=== PATIENT | female | born 1960 | race African-American/Black ===

== ENCOUNTER 2016-12-22 12:43 | Inpatient (IN) | payer MEDICARE, MEDICAID ==
[~2016-12-22 12:43] MED LIST: SUCCINYLCHOLINE CHLORIDE INJ 200 MG/10 ML VIAL ONE
--- NOTE | 2016-12-22 14:16 | ER Document Report ---
ED Extremity Problem, Lower - General Mode of Arrival: Medic Information source: Patient, Relative Cannot obtain history due to: Mentally challenged - HPI Patient complains to provider of: Injury, Pain Location: Ankle - left Occurred: Just prior to arrival Onset/Duration: Sudden Quality of pain: Sharp <JULIA AYALA - Last Filed: 12/22/16 22:19> <GELACIO FRANCO - Last Filed: 12/23/16 01:11> - General Stated Complaint: ANKLE PAIN Notes: Patient is a 56-year-old female that presents to the emergency department today with complaints of left ankle pain. Relative at bedside states that she was attempting to help the patient pull her pants up when the patient fell. Patient complains of left ankle pain. Patient denies any other injuries during the fall, including left knee pain. Patient was seen in an emergency department in [place] yesterday and diagnosed with a viral upper respiratory infection. According to the EMS run sheet, the patient's oxygen saturation was 82% on room air on their arrival to the scene, patient was put on 3L of oxygen and her oxygen saturation brigette to 96% (JULIA AYALA) - Related Data Allergies/Adverse Reactions: No Known Allergies Allergy (Verified 08/27/12 09:50) Past Medical History - General Information source: Emergency Med Personnel, [facility] Records Cannot obtain history due to: Mentally challenged - Social History Smoking Status: Never Smoker Cigarette use (# per day): No Frequency of alcohol use: None Drug Abuse: None Family History: Reviewed & Not Pertinent - Past Medical History Cardiac Medical History: Reports: Hx Hypertension Endocrine Medical History: Reports: Hx Hypothyroidism Psychiatric Medical History: Reports: Hx Anxiety Surgical Hx: Negative <JULIA AYALA - Last Filed: 12/22/16 22:19> Review of Systems - Review of Systems Constitutional: No symptoms reported EENT: No symptoms reported Cardiovascular: No symptoms reported Respiratory: No symptoms reported Gastrointestinal: No symptoms reported Genitourinary: No symptoms reported Female Genitourinary: No symptoms reported Musculoskeletal: See HPI, Joint pain - left ankle pain Skin: No symptoms reported Hematologic/Lymphatic: No symptoms reported Neurological/Psychological: No symptoms reported -: Yes All other systems reviewed and negative <JULIA AYALA - Last Filed: 12/22/16 22:19> Physical Exam - General General appearance: Alert - HEENT Head: Normocephalic, Atraumatic Eyes: Normal Extraocular movements intact: Yes - Respiratory Respiratory status: No respiratory distress Chest status: Nontender - Cardiovascular Rhythm: Regular Heart sounds: Normal auscultation Murmur: No Pulses: Normal: Dorsalis pedis Normal capillary refill: Yes - Abdominal Inspection: Obese Distension: No distension - Extremities General upper extremity: Normal inspection, Nontender, Normal ROM General lower extremity: Other - Left ankle is swollen and exquisitely tender with palpation. Left foot is warm, good sensation distally, normal digit movement distally, 2+ dorsalis pedis pulse on the left. - Neurological Neuro grossly intact: Yes Cognition: Other - at baseline according to relative at bedside Sensory: Normal - Psychological Associated symptoms: Other - baseline according to relative at bedside - Skin Skin Temperature: Warm Skin Moisture: Dry Skin Color: Normal <JULIA AYALA - Last Filed: 12/22/16 22:19> Course - Laboratory Result Diagrams: 12/22/16 14:50 12/22/16 14:50 <JULIA AYALA - Last Filed: 12/22/16 22:19> - Laboratory Result Diagrams: 12/22/16 14:50 12/22/16 14:50 - Diagnostic Test Radiology reviewed: Image reviewed, Reports reviewed - CT a chest shows extensive parenchymal opacities throughout both lungs. No pulmonary emboli seen. - EKG Interpretation by Me EKG shows normal: Sinus rhythm, [place], Intervals, QRS Complexes. abnormal: ST-T Waves - Diffuse borderline T abnormalities Rate: Normal - 82 Rhythm: NSR When compared to previous EKG there are: Previous EKG unavailable <GELACIO FRANCO - Last Filed: 12/23/16 01:11> - Re-evaluation Re-evalutation: 12/22/16 21:13 The patient continued to desaturate whenever her oxygen would come off, she also desaturated when she was given the fentanyl prior to reducing the ankle. Her d-dimer was elevated, the chest x-ray was read as pulmonary vascular congestion but the BNP was only 159. We did try to get a CTa chest but the IV that had been obtained for this blew immediately. Dr. Kramer came down and placed a central line to facilitate getting the CT scan of the chest. The first attempt to do the CTA chest, I was told that the line would not flush so it was aborted. I found that the central line was kinked off it greater than 90 at the plastic hub. I corrected this by removing a suture looped around the catheter, and repositioned intake down the catheter. The patient eventually went back for the CT scan. The first CT scan done was inadequate due to the contrast bolus being too small. This was explained to me as the calculation instruction that was provided by some new computer program that told them how much contrast to use. Dr. Arellano discussed this with me and decided to repeat the study with an adequate dose of the contrast. The CT did not show any pulmonary emboli, but did show diffuse parenchymal opacities. 12/23/16 00:37 The patient had become quite somnolent, did not seem to be ventilating well, blood gas was obtained showing PCO2 of 144 and pH of 7.08. The O2 was 30 so this was a venous draw. The patient was prepared for airway management and intubated with a 7.5 ET tube after receiving 20 mg of etomidate and 100 mg succinylcholine. The pulse ox went up to 100% soon after intubation and hyperventilation. Chest x-ray shows the tip of the tube was just above the rima. It was withdrawn 1.5 cm. (GELACIO FARNCO) - Vital Signs Vital signs: Temp Pulse Resp BP Pulse Ox 98.7 F 83 15 125/86 H 75 L 12/22/16 13:21 12/22/16 17:16 12/22/16 22:01 12/22/16 22:01 12/22/16 22:00 (JULIA AYALA) (GELACIO FRANCO) - Laboratory Laboratory results interpreted by me: 12/22/16 12/22/16 12/22/16 14:50 14:50 14:50 WBC 13.3 H Hgb 10.9 L Hct 34.5 L MCHC 31.7 L Abs Neuts (Manual) 10.4 H D-Dimer 1.82 H Carbonic Acid ABG pH ABG pCO2 ABG pO2 ABG HCO3 ABG Total CO2 ABG O2 Saturation Sodium 148.3 H Chloride 97 L Carbon Dioxide 38 H 12/22/16 22:35 WBC Hgb Hct MCHC Abs Neuts (Manual) D-Dimer Carbonic Acid 4.32 H ABG pH 7.08 L* ABG pCO2 143.6 H* ABG pO2 30.5 L* ABG HCO3 42.0 H ABG Total CO2 46.4 H ABG O2 Saturation 35.0 L Sodium Chloride Carbon Dioxide (GELACIO FRANCO) Procedures <JULIA AYALA - Last Filed: 12/22/16 22:19> - Intubation Orotracheal Time of Intubation: 00:30 Airway evaluation: Large tongue, Obese Medications: Etomidate, Succinylcholine Intubation method: Orotracheal Blade type: Sarina Blade size: 4 ETT size: 7.5 ETT secured at: Lips Breath Sounds after Intubation: Right greater than left End tidal CO2 confirmed: Yes Ventilator settings: SIMV - 20 Tidal volume: 500 FiO2: 40 PEEP: 5 Post Intubation Xray: Yes - endotracheal tube is just above the rima. It is withdrawn 1.5 cm Intubation Complications: O2 saturation decreased - Joint Reduction/Fracture Care Left Ankle Time completed: 16:55 Consent obtained: Yes - verbal from mother Conscious sedation: No Pre-procedure NV exam: Yes Fracture: Closed Post-procedure NV exam: Yes Post-reduction x-ray: Joint reduced <GELACIO FRANCO - Last Filed: 12/23/16 01:11> - Joint Reduction/Fracture Care Left Ankle Notes: 12/22/16 17:01 The foot and ankle was pulled forward and medially relative to the distal tibia. Posterior splint was applied by the PCT while I attempted to hold the ankle in position. The patient was given 50 g of fentanyl IV prior to the reduction attempt. After the ankle was no longer manipulated, the patient became somnolent and pulse ox dropped into the 80s. She was put on a mask with 10 L oxygen and pulse ox went back up to 99%. (GELACIO FRANCO) Critical Care Note - Critical Care Note Total time excluding time spent on procedures (mins): 50 <GELACIO FRANCO - Last Filed: 12/23/16 01:11> Discharge <JULIA AYALA - Last Filed: 12/22/16 22:19> - Discharge Admitting Provider: Hospitalist Unit Admitted: ICU <GELACIO FRANCO - Last Filed: 12/23/16 01:11> - Discharge Clinical Impression: Fracture dislocation of left ankle Acute respiratory failure Qualifiers: Respiratory failure complication: hypoxia and hypercapnia Qualified Code(s): J96.01 - Acute respiratory failure with hypoxia Pneumonia Qualifiers: Pneumonia type: due to unspecified organism Laterality: bilateral Lung location : unspecified part of lung Qualified Code(s): J18.9 - Pneumonia, unspecified organism Condition: Fair Disposition: ADMITTED INPATIENT Scribe Documentation - Scribe Written by Scribe:: Daniel Posey, [id number] 12/22/16 acting as scribe for :: Jese <JULIA AYALA - Last Filed: 12/22/16 22:19>
[2016-12-22] MEDS ORDERED: FENTANYL CITRATE INJ/PF 100 MCG/2 ML AMPUL IV ONE ×2 (14:21→16:34)
[2016-12-22] MEDS ORDERED: ONDANSETRON HCL INJ/PF 4 MG/2 ML SDV IV ONE (14:21)
[2016-12-22 15:17] LABS: PROTHROMBIN TIME 13.1 SEC (11.4-15.4)
[2016-12-22 15:19] LABS: HEMATOCRIT 34.5 % (36.0-47.0); HEMOGLOBIN 10.9 g/dL (12.0-15.5); HGB HCT DIFFERENCE -1.8; MEAN CORPUSCULAR HEMOGLOBIN 28.1 pg (27.0-33.4); MEAN CORPUSCULAR HGB CONC 31.7 g/dL (32.0-36.0); MEAN CORPUSCULAR VOLUME 89 fl (80-97); RED BLOOD COUNT 3.89 10^6/uL (3.72-5.28); RED CELL DISTRIBUTION WIDTH 13.2 % (11.5-14.0); WHITE BLOOD COUNT 13.3 10^3/uL (4.0-10.5)
[2016-12-22 15:20] LABS: D-DIMER 1.82 ug/mL (0.00-0.50)
[2016-12-22 15:31] LABS: ALANINE AMINOTRANSFERASE 25 U/L (9-52); ALBUMIN 3.9 g/dL (3.5-5.0); ALKALINE PHOSPHATASE 96 U/L (38-126); ASPARTATE AMINO TRANSFERASE 21 U/L (14-36); BILIRUBIN,TOTAL 0.5 mg/dL (0.2-1.3); BLOOD UREA NITROGEN 10 mg/dL (7-20); CALCIUM 9.6 mg/dL (8.4-10.2); CHLORIDE 97 mmol/L (98-107); CREATINE KINASE 103 U/L (30-135); CREATININE RESULT 0.82 mg/dL (0.52-1.25); GLUCOSE 110 mg/dL (75-110); POTASSIUM 3.6 mmol/L (3.6-5.0); SODIUM 148.3 mmol/L (137-145)
[2016-12-22 15:43] LABS: CREATINE KINASE MB 0.27 ng/mL (<4.55); TROPONIN I < 0.012 ng/mL
[2016-12-22 15:55] LABS: ANION GAP 13 (5-19); CARBON DIOXIDE 38 mmol/L (22-30)
[2016-12-22 15:56] LABS: BASOPHILS % (MANUAL) 0 % (0-2); EOSINOPHILS % (MANUAL) 1 % (0-6); LYMPHOCYTES % (MANUAL) 14 % (13-45); TOTAL CELLS COUNTED 100
[2016-12-22 15:58] LABS: HYPOCHROMASIA SLIGHT; POIKILOCYTOSIS SLIGHT; POLYCHROMASIA SLIGHT; SMUDGE CELLS PRESENT; TOXIC VACUOLATION PRESENT
[2016-12-22 15:59] LABS: OVALOCYTES SLIGHT; PLATELET CLUMPS PRESENT; TARGET CELLS SLIGHT
--- NOTE | 2016-12-22 20:33 | Operative Report ---
Operative Report DATE OF SURGERY: 12/22/16 PREOPERATIVE DIAGNOSIS: Respiratory insufficiency, need for central venous access. POSTOPERATIVE DIAGNOSIS: Respiratory insufficiency, need for central venous access. OPERATION: Right internal jugular vein 8 Malay triple-lumen central venous line placement with ultrasound guidance. SURGEON: CHELSEA HAMPTON ANESTHESIA: Local TISSUE REMOVED OR ALTERED: None COMPLICATIONS: None noted. ESTIMATED BLOOD LOSS: minimal INTRAOPERATIVE FINDINGS: Sound used to identify normal appearing right common carotid artery and right internal jugular vein in the normal anatomical position. PROCEDURE: Timeout was performed. The patient was prepped and draped in normal sterile fashion. Ultrasound was used to identify the right internal jugular vein and right common carotid artery. The skin over the vein was infiltrated with local anesthetic. An 11 blade scalpel was used to make a skin marialuisa. Under ultrasound guidance, a Cook needle was used to cannulate the right internal jugular vein with return of nonpulsatile dark red venous blood. Seldinger technique was used. The guidewire was placed. The Cook needle was removed. The tract was dilated. Catheter was placed over the guidewire. The guidewire was removed. All lumens easily aspirated and flushed. The catheter was sewn in place at the skin and at the end hub. A Biopatch was placed. A sterile dressing was placed. All sharps were accounted for and disposed of properly. The patient tolerated the procedure well. A chest x-ray confirmed appropriate placement of the line with no pneumothorax.
[2016-12-22] MEDS ORDERED: NORMAL SALINE 1000 ML 500 ML IV ONE (22:41)
[2016-12-22] MEDS ORDERED: CEFTRIAXONE 1 GM/D5W RTU 50 ML IV ONE (23:23)
[2016-12-22] MEDS ORDERED: LEVOFLOXACIN 750 MG/D5W RTU 150 ML IV ONE (23:23)
[2016-12-23 00:06] LABS: ARTERIAL BLOOD BASE EXCESS 7.8 mmol/L
[2016-12-23] MEDS ORDERED: SUCCINYLCHOLINE CHLORIDE INJ 200 MG/10 ML VIAL IV ONE (00:20)
[2016-12-23] MEDS ORDERED: ETOMIDATE INJ/PF 20 MG/10 ML SDV IV ONE ×2 (00:20→00:21)
[2016-12-23] MEDS ORDERED: PROPOFOL 100 ML IV PRN (00:41)
[2016-12-23] MEDS ORDERED: PROPOFOL 100 ML IV ONE (00:42)
[2016-12-23] MEDS ORDERED: ACETAMINOPHEN 325 MG TABLET NG PRN (00:51)
[2016-12-23] MEDS ORDERED: FENTANYL CITRATE INJ/PF 100 MCG/2 ML AMPUL IV PRN (00:56)
[2016-12-23] MEDS ORDERED: NORMAL SALINE 1000 ML 1,000 ML IV SCH (01:00)
[2016-12-23 01:38] LABS: APPEARANCE,URINE CLEAR; BILIRUBIN,URINE NEGATIVE (NEGATIVE); GLUCOSE, URINE NEGATIVE (NEGATIVE); KETONES,URINE NEGATIVE (NEGATIVE); LEUKOCYTE ESTERASE,URINE NEGATIVE (NEGATIVE); NITRITE,URINE NEGATIVE (NEGATIVE); PROTEIN,URINE NEGATIVE (NEGATIVE); URINE SPECIFIC GRAVITY > 1.060; UROBILINOGEN,URINE NEGATIVE mg/dL (<2.0)
[2016-12-23] MEDS: IPRATROPIUM/ALBUTEROL 0.5-2.5 MG/3 ML AMPUL NEB SCH ×4 (02:37→19:53)
[2016-12-23] MEDS: PROPOFOL 100 ML IV PRN ×7 (03:08→23:20)
[2016-12-23] MEDS ORDERED: NORMAL SALINE 1000 ML 1,000 ML IV ONE (03:12)
[2016-12-23] MEDS ORDERED: INFLUENZA ADLT QUAD (36MOS+) 2016-17 VAC 0.5 ML SYR IM PRN (04:10)
--- NOTE | 2016-12-23 05:06 | PDOC H&P ---
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 Past Medical History Cardiac Medical History: Reports: Hypertension Endocrine Medical History: Reports: Hypothyroidism Psychiatric Medical History: Denies: Depression Social History Information Source: Emergency Med Personnel Lives with: Family Smoking Status: Never Smoker Frequency of Alcohol Use: None Hx Recreational Drug Use: No Drugs: None Hx Prescription Drug Abuse: No - Advance Directive Resuscitation Status: Full Code Family History Family History: Reviewed & Not Pertinent Parental Family History Reviewed: Yes Children Family History Reviewed: Yes Sibling(s) Family History Reviewed.: Yes Medication/Allergy Home Medications: Amlodipine Besylate 5 mg PO DAILY 12/23/16 Atorvastatin Calcium 10 mg PO QHS 12/23/16 Clotrimazole/Betamethasone Dip [Clotrimazole-Betamethasone [facility]] 12/23/16 Docusate Sodium 100 mg PO ASDIR PRN 12/23/16 Hydroxyzine HCl 25 mg PO QHS PRN 12/23/16 Levothyroxine Sodium 25 mcg PO DAILY 12/23/16 Lisinopril 5 mg PO DAILY 12/23/16 Mirtazapine 15 mg PO QHS 12/23/16 Potassium Chloride 10 meq PO BID 12/23/16 Allergies/Adverse Reactions: No Known Allergies Allergy (Verified 08/27/12 09:50) Review of Systems ROS unobtainable: Due to mental status Physical Exam Vital Signs: Temp Pulse Resp BP Pulse Ox 99.6 F 104 H 12 101/69 94 12/23/16 03:58 12/23/16 03:58 12/23/16 03:58 12/23/16 03:58 12/23/16 04:00 Intake & Output 12/21/16 12/22/16 12/23/16 11:59 11:59 11:59 Weight 101 kg General appearance: PRESENT: no acute distress, obese Head exam: PRESENT: atraumatic, normocephalic Eye exam: PRESENT: conjunctiva pink, EOMI, PERRLA. ABSENT: scleral icterus Ear exam: PRESENT: normal external ear exam Mouth exam: PRESENT: moist, tongue midline Respiratory exam: PRESENT: crackles, rhonchi, symmetrical, tachypnea. ABSENT: chest wall tenderness, stridor Cardiovascular exam: PRESENT: RRR. ABSENT: diastolic murmur, rubs, systolic murmur Pulses: PRESENT: normal dorsalis pedis pul Vascular exam: PRESENT: normal capillary refill GI/Abdominal exam: PRESENT: normal bowel sounds, soft. ABSENT: distended, guarding, mass, organolmegaly, rebound, tenderness Extremities exam: PRESENT: full ROM. ABSENT: calf tenderness, clubbing, pedal edema Neurological exam: PRESENT: other - Intubated sedated and comfortable Skin exam: PRESENT: dry, intact, warm. ABSENT: cyanosis, rash Results Laboratory Results: 12/23/16 01:05 Urine Color STRAW Urine Appearance CLEAR Urine pH 6.0 Ur Specific [place] > 1.060 Urine Protein NEGATIVE Urine Glucose (UA) NEGATIVE Urine Ketones NEGATIVE Urine Blood SMALL H Urine Nitrite NEGATIVE Ur Leukocyte Esterase NEGATIVE Urine WBC (Auto) 0 Urine RBC (Auto) 1 Impressions: Ankle X-Ray 12/22/16 13:45 IMPRESSION: Left ankle fracture dislocation with disruption of the ankle mortise and distal tibiofibular joint Chest/Abdomen CTA 12/22/16 16:25 IMPRESSION: Diffuse parenchymal opacities throughout both lungs. Poor bolus. Cannot evaluate for pulmonary emboli. Assessment & Plan - Diagnosis (1) Acute respiratory failure Qualifiers: Respiratory failure complication: hypoxia and hypercapnia Qualified Code(s): J96.01 - Acute respiratory failure with hypoxia Is this a current diagnosis for this admission?: YesPlan: Secondary to bilateral multilobar pneumonia cultures obtained empiric antibiotics initiated, intubated sedated and comfortable evaluate ABG and follow -up chest x-ray (2) Fracture dislocation of left ankle Is this a current diagnosis for this admission?: YesPlan: Symptomatic management and orthopedic consult (3) Pneumonia Qualifiers: Pneumonia type: due to unspecified organism Laterality: bilateral Lung location: unspecified part of lung Qualified Code(s): J18.9 - Pneumonia , unspecified organism Is this a current diagnosis for this admission?: YesPlan: Please see #1
[2016-12-23 05:25] LABS: ABSOLUTE LYMPHOCYTES (AUTO) 1.6 10^3/uL (0.5-4.7); ABSOLUTE MONOCYTES (AUTO) 0.6 10^3/uL (0.1-1.4); ABSOLUTE NEUT (AUTO) 6.5 10^3/uL (1.7-8.2); BASOPHILS % (AUTO) 0.1 % (0-2); EOSINOPHILS % (AUTO) 0.1 % (0-6); HEMATOCRIT 28.8 % (36.0-47.0); HEMOGLOBIN 9.3 g/dL (12.0-15.5); HGB HCT DIFFERENCE -0.9; LYMPHOCYTES % (AUTO) 17.9 % (13-45); MEAN CORPUSCULAR HEMOGLOBIN 28.5 pg (27.0-33.4); MEAN CORPUSCULAR HGB CONC 32.3 g/dL (32.0-36.0); MEAN CORPUSCULAR VOLUME 88 fl (80-97); MONOCYTES % (AUTO) 7.2 % (3-13); RED BLOOD COUNT 3.27 10^6/uL (3.72-5.28); RED CELL DISTRIBUTION WIDTH 13.5 % (11.5-14.0); SEGMENTED NEUTROPHILS % (AUTO) 74.7 % (42-78); WHITE BLOOD COUNT 8.6 10^3/uL (4.0-10.5)
[2016-12-23 05:29] LABS: ARTERIAL BLOOD BASE EXCESS 11.4 mmol/L; ARTERIAL BLOOD O2 SATURATION 88.2 % (94-98)
[2016-12-23] MEDS: HEPARIN SOD (PORCINE) 5,000 UNIT/ML 1 ML SYRINGE SUBCUT SCH ×3 (05:33→22:01)
[2016-12-23] MEDS ORDERED: PANTOPRAZOLE SODIUM 80 MG in NORMAL SALINE 100 ML IV ONE (05:45)
[2016-12-23] MEDS ORDERED: PANTOPRAZOLE SODIUM 40 MG VIAL IV PRN (05:48)
[2016-12-23 05:53] LABS: ANION GAP 9 (5-19); BLOOD UREA NITROGEN 11 mg/dL (7-20); CALCIUM 8.9 mg/dL (8.4-10.2); CARBON DIOXIDE 36 mmol/L (22-30); CHLORIDE 100 mmol/L (98-107); CREATININE RESULT 0.73 mg/dL (0.52-1.25); GLUCOSE 84 mg/dL (75-110); POTASSIUM 3.3 mmol/L (3.6-5.0); SODIUM 145.1 mmol/L (137-145); TRIGLYCERIDES 151 mg/dL (<150)
[2016-12-23] MEDS ORDERED: POTASSI CL 20 MEQ/50 ML RIDER 20 MEQ/50 ML RTUPB IV ONE ×2 (06:30→07:42)
[2016-12-23] MEDS ORDERED: MAGNESIUM SULFATE/D5W 1 GM/100 ML RTUPB IV ONE ×2 (06:31→07:42)
[2016-12-23] MEDS: POTASSI CL 20 MEQ/50 ML RIDER 50 ML IV SCH ×2 (08:13→10:20)
[2016-12-23] MEDS: MAGNESIUM SULFATE/D5W 100 ML IV SCH ×2 (08:13→09:37)
--- NOTE | 2016-12-23 09:24 | EKG REPORT ---
SEVERITY:- BORDERLINE ECG - SINUS RHYTHM BORDERLINE T ABNORMALITIES, DIFFUSE LEADS : Confirmed by: Kareem Chapa 23-Dec-2016 09:24:03
[2016-12-23 09:47] LABS: ARTERIAL BLOOD O2 SATURATION 90.9 % (94-98)
[2016-12-23] MEDS: LEVOFLOXACIN 750 MG/D5W RTU 150 ML IV SCH (10:36)
[2016-12-23] MEDS: LEVOTHYROXINE SODIUM 0.025 MG TABLET PO SCH (10:37)
[2016-12-23] MEDS: LORAZEPAM INJ 2 MG/1 ML VIAL IV PRN (10:38)
[2016-12-23] MEDS: NORMAL SALINE 1000 ML 1,000 ML IV PRN ×2 (10:40→19:00)
--- NOTE | 2016-12-23 10:48 | PDOC CONSULTATION ---
Consultation Consult Date: 12/23/16 Attending physician:: JONAS MICHAUD Consult reason:: resp fail History of Present Illness Admission Date/PCP: 12/23/16 00:51 History of Present Illness: Patient is currently intubated and sedated all information is from charts. 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 Past Medical History Cardiac Medical History: Reports: Hypertension Endocrine Medical History: Reports: Hypothyroidism Psychiatric Medical History: Denies: Depression Social History Information Source: [facility] Records Lives with: Family Smoking Status: Never Smoker Frequency of Alcohol Use: None Hx Recreational Drug Use: No Drugs: None Hx Prescription Drug Abuse: No - Advance Directive Resuscitation Status: Full Code Family History Family History: Reviewed & Not Pertinent Parental Family History Reviewed: No Children Family History Reviewed: No Sibling(s) Family History Reviewed.: No Medication/Allergy Home Medications: Amlodipine Besylate [Norvasc 5 mg Tablet] 5 mg PO DAILY 12/23/16 Atorvastatin Calcium [Lipitor 10 mg Tablet] 10 mg PO QHS 12/23/16 Clotrimazole/Betamethasone Dip [Clotrimazole-Betamethasone [facility]] 1 applic TOP BID 12/23/16 Docusate Sodium [Colace 100 mg Capsule] 100 mg PO DAILYP PRN 12/23/16 Hydroxyzine HCl [Atarax 25 mg Tablet] 25 mg PO HSP PRN 12/23/16 Levothyroxine Sodium [Synthroid 0.025 mg Tablet] 0.025 mg PO DAILY 12/23/16 Lisinopril [Prinivil 5 mg Tablet] 5 mg PO DAILY 12/23/16 Mirtazapine [Remeron 15 mg Tablet] 15 mg PO QHS 12/23/16 Potassium Chloride [Klor-Con 10 Meq Tablet.sa] 10 meq PO BID 12/23/16 Allergies/Adverse Reactions: No Known Allergies Allergy (Verified 08/27/12 09:50) Review of Systems ROS unobtainable: Due to endotracheal tube, Due to mental status Physical Exam Vital Signs: Temp Pulse Resp BP Pulse Ox 98.8 F 87 12 111/71 96 12/23/16 07:55 12/23/16 08:01 12/23/16 08:01 12/23/16 07:55 12/23/16 08:01 Intake & Output 12/22/16 12/23/16 12/24/16 06:59 06:59 06:59 Intake Total 1511 Output Total 300 40 Balance 1211 -40 Weight 101.1 kg General appearance: PRESENT: no acute distress, disheveled, morbidly obese, well -developed, well-nourished Head exam: PRESENT: atraumatic, normocephalic Eye exam: PRESENT: conjunctiva pale Mouth exam: PRESENT: neck supple, tongue midline - Greatly enlarged, other - Endotracheal tube in place Neck exam: ABSENT: carotid bruit, JVD, lymphadenopathy, thyromegaly Respiratory exam: PRESENT: decreased breath sounds, prolonged expiratory phas, rhonchi, symmetrical, unlabored Cardiovascular exam: PRESENT: RRR, +S1, +S2 Pulses: PRESENT: normal radial pulses GI/Abdominal exam: PRESENT: normal bowel sounds, soft. ABSENT: distended, guarding, mass, organolmegaly, rebound, tenderness Rectal exam: PRESENT: deferred Gentrourinary exam: PRESENT: indwelling catheter Extremities exam: PRESENT: pedal edema - Trace, other - Right ankle abnormality Skin exam: PRESENT: dry, intact, warm Results Laboratory Results: 12/23/16 04:59 12/23/16 04:59 12/23/16 12/23/16 12/23/16 01:05 04:59 04:59 WBC 8.6 RBC 3.27 L Hgb 9.3 L Hct 28.8 L MCV 88 MCH 28.5 MCHC 32.3 RDW 13.5 Plt Count 287 Seg Neutrophils % 74.7 Lymphocytes % 17.9 Monocytes % 7.2 Eosinophils % 0.1 Basophils % 0.1 Absolute Neutrophils 6.5 Absolute Lymphocytes 1.6 Absolute Monocytes 0.6 Absolute Eosinophils 0.0 Absolute Basophils 0.0 Carbonic Acid 1.78 H HCO3/H2CO3 Ratio 21:1 ABG pH 7.43 ABG pCO2 59.1 H ABG pO2 54.5 L ABG HCO3 37.9 H ABG O2 Saturation 88.2 L ABG Base Excess 11.4 FiO2 28% Sodium Potassium Chloride Carbon Dioxide Anion Gap BUN Creatinine Est GFR ( Amer) Est GFR (Non-Af Amer) Glucose Calcium Magnesium Triglycerides Urine Color STRAW Urine Appearance CLEAR Urine pH 6.0 Ur Specific [place] > 1.060 Urine Protein NEGATIVE Urine Glucose (UA) NEGATIVE Urine Ketones NEGATIVE Urine Blood SMALL H Urine Nitrite NEGATIVE Ur Leukocyte Esterase NEGATIVE Urine WBC (Auto) 0 Urine RBC (Auto) 1 12/23/16 12/23/16 04:59 04:59 WBC RBC Hgb Hct MCV MCH MCHC RDW Plt Count Seg Neutrophils % Lymphocytes % Monocytes % Eosinophils % Basophils % Absolute Neutrophils Absolute Lymphocytes Absolute Monocytes Absolute Eosinophils Absolute Basophils Carbonic Acid HCO3/H2CO3 Ratio ABG pH ABG pCO2 ABG pO2 ABG HCO3 ABG O2 Saturation ABG Base Excess FiO2 Sodium 145.1 H Potassium 3.3 L Chloride 100 Carbon Dioxide 36 H Anion Gap 9 BUN 11 Creatinine 0.73 Est GFR ( Amer) > 60 Est GFR (Non-Af Amer) > 60 Glucose 84 Calcium 8.9 Magnesium 1.6 Triglycerides 151 H Urine Color Urine Appearance Urine pH Ur Specific [place] Urine Protein Urine Glucose (UA) Urine Ketones Urine Blood Urine Nitrite Ur Leukocyte Esterase Urine WBC (Auto) Urine RBC (Auto) Impressions: Ankle X-Ray 12/22/16 13:45 IMPRESSION: Left ankle fracture dislocation with disruption of the ankle mortise and distal tibiofibular joint Chest/Abdomen CTA 12/22/16 16:25 IMPRESSION: Diffuse parenchymal opacities throughout both lungs. Poor bolus. Cannot evaluate for pulmonary emboli. Chest X-Ray 12/23/16 00:00 IMPRESSION: Unchanged bilateral airspace disease Endotracheal tube tip 1 to 2 cm above the rima. Assessment & Plan - Diagnosis (1) Acute respiratory failure Qualifiers: Respiratory failure complication: hypoxia and hypercapnia Qualified Code(s): J96.01 - Acute respiratory failure with hypoxia Is this a current diagnosis for this admission?: YesPlan: Suspect patient has obesity hypoventilation syndrome and obstructive sleep apnea is her pH corrected with a persistent PCO2 elevation patient is stable at this time will continue oxygenation and ventilation support (2) Fracture dislocation of left ankle Is this a current diagnosis for this admission?: YesPlan: As per orthopedics will not attempt extubation until the plan is delineated (3) Pneumonia Qualifiers: Pneumonia type: due to unspecified organism Laterality: bilateral Lung location: unspecified part of lung Qualified Code(s): J18.9 - Pneumonia, unspecified organism Is this a current diagnosis for this admission?: YesPlan: Community-acquired using appropriate antibiotics - Time Critical Time spent with patient: 35 or more minutes - 50 minutes
[2016-12-23 11:52] LABS: ANION GAP 5 (5-19); BLOOD UREA NITROGEN 9 mg/dL (7-20); CALCIUM 8.6 mg/dL (8.4-10.2); CARBON DIOXIDE 36 mmol/L (22-30); CHLORIDE 104 mmol/L (98-107); CREATININE RESULT 0.67 mg/dL (0.52-1.25); GLUCOSE 85 mg/dL (75-110); POTASSIUM 3.3 mmol/L (3.6-5.0); SODIUM 145.1 mmol/L (137-145)
[2016-12-23] MEDS: NYSTATIN TOPICAL POWDER 15 GM TP SCH ×2 (14:53→17:38)
[2016-12-23] MEDS: MIRTAZAPINE 15 MG TABLET PO SCH (22:01)
[2016-12-24] MEDS: PROPOFOL 100 ML IV PRN ×8 (01:06→22:58)
[2016-12-24] MEDS: IPRATROPIUM/ALBUTEROL 0.5-2.5 MG/3 ML AMPUL NEB SCH ×4 (01:47→20:46)
[2016-12-24] MEDS: NORMAL SALINE 1000 ML 1,000 ML IV PRN ×3 (02:48→21:49)
[2016-12-24 05:07] LABS: ARTERIAL BLOOD BASE EXCESS 5.2 mmol/L; ARTERIAL BLOOD O2 SATURATION 93.5 % (94-98)
[2016-12-24 05:10] LABS: ABSOLUTE EOSINOPHILS # (AUTO) 0.2 10^3/uL (0.0-0.6); ABSOLUTE LYMPHOCYTES (AUTO) 1.5 10^3/uL (0.5-4.7); ABSOLUTE MONOCYTES (AUTO) 0.4 10^3/uL (0.1-1.4); ABSOLUTE NEUT (AUTO) 3.2 10^3/uL (1.7-8.2); BASOPHILS % (AUTO) 0.4 % (0-2); EOSINOPHILS % (AUTO) 4.5 % (0-6); HEMATOCRIT 25.6 % (36.0-47.0); HEMOGLOBIN 8.3 g/dL (12.0-15.5); HGB HCT DIFFERENCE -0.7; LYMPHOCYTES % (AUTO) 27.8 % (13-45); MEAN CORPUSCULAR HEMOGLOBIN 28.4 pg (27.0-33.4); MEAN CORPUSCULAR HGB CONC 32.5 g/dL (32.0-36.0); MEAN CORPUSCULAR VOLUME 87 fl (80-97); MONOCYTES % (AUTO) 6.6 % (3-13); RED BLOOD COUNT 2.93 10^6/uL (3.72-5.28); RED CELL DISTRIBUTION WIDTH 13.5 % (11.5-14.0); SEGMENTED NEUTROPHILS % (AUTO) 60.7 % (42-78); WHITE BLOOD COUNT 5.3 10^3/uL (4.0-10.5)
[2016-12-24 05:25] LABS: ANION GAP 7 (5-19); BLOOD UREA NITROGEN 7 mg/dL (7-20); CALCIUM 8.4 mg/dL (8.4-10.2); CARBON DIOXIDE 32 mmol/L (22-30); CHLORIDE 105 mmol/L (98-107); CREATININE RESULT 0.62 mg/dL (0.52-1.25); GLUCOSE 101 mg/dL (75-110); MAGNESIUM 1.9 mg/dL (1.6-2.3); SODIUM 143.8 mmol/L (137-145)
[2016-12-24] MEDS: HEPARIN SOD (PORCINE) 5,000 UNIT/ML 1 ML SYRINGE SUBCUT SCH ×3 (05:44→22:10)
[2016-12-24] MEDS: NORMAL SALINE 100 ML with PANTOPRAZOLE SODIUM 80 MG IV PRN ×4 (07:34→16:32)
[2016-12-24] MEDS: POTASSI CL 20 MEQ/50 ML RIDER 50 ML IV SCH ×2 (07:35→11:45)
[2016-12-24] MEDS ORDERED: ACETYLCYSTEINE 20% SOLN 800 MG/4 ML VIAL.NEB NEB PRN (08:12)
[2016-12-24] MEDS ORDERED: POTASSIUM CHLORIDE 20 MEQ/15 ML UDCUP NG ONE (08:30)
[2016-12-24] MEDS: POTASSI CL 20 MEQ/50 ML RIDER 20 MEQ/50 ML RTUPB IV SCH ×3 (09:09→14:58)
[2016-12-24] MEDS: LEVOFLOXACIN 750 MG/D5W RTU 150 ML IV SCH (10:18)
[2016-12-24] MEDS: AMLODIPINE BESYLATE 5 MG TABLET NG SCH ×2 (10:20→22:10)
[2016-12-24] MEDS: MAGNESIUM OXIDE 400 MG TABLET NG SCH ×3 (10:20→18:35)
[2016-12-24] MEDS: GUAIFENESIN SYRP 200 MG/10 ML UDC NG SCH ×4 (10:20→22:09)
[2016-12-24] MEDS: LEVOTHYROXINE SODIUM 0.025 MG TABLET PO SCH (10:23)
[2016-12-24] MEDS: NYSTATIN TOPICAL POWDER 15 GM TP SCH ×2 (10:24→18:32)
--- NOTE | 2016-12-24 17:24 | XCELERA REPORT ---
[address] [address] Transthoracic Echocardiogram Report Name: ZOFIA COLES Age: 56 yrs Gender: Female : 1960 Patient Status: Inpatient Patient Location: \S\[facility]\S\A Study Date: 12/24/2016 09:21 AM Height: 64 in Weight: 236 lb BSA: 2.1 m2 Procedure: A complete two-dimensional transthoracic echocardiogram was performed (2D, M-mode, spectral and color flow Doppler). The study was technically difficult with many images being suboptimal in quality. Reason For Study: chf Ordering Physician: GÉNESIS PRESLEY Performed By: Phoebe Saul Interpretation Summary The left ventricular ejection fraction is normal. Doppler measurements suggest pseudonormalized left ventricular relaxation, which is associated with grade II/IV or mild to moderate diastolic dysfunction There is borderline concentric left ventricular hypertrophy. The left ventricle is grossly normal size. Not all wall segments were well visualized. Wall motion cannot be accurately commented on, but no definite regional wall motion abnormalities noted. Borderline right ventricular enlargement. The right atrium is mildly dilated. The left atrium is borderline dilated. There is no mitral valve stenosis. There is a trace amount of mitral regurgitation There is no aortic valve stenosis No aortic regurgitation is present. There is a trace to mild amount of tricuspid regurgitation Tricuspid regurgitation jet envelope not well defined to measure RV systolic pressure accurately. The aortic root is not well visualized but is probably normal size. The inferior vena cava was not well visualized There is no pericardial effusion. MMode/2D Measurements \T\ Calculations RVDd: 1.4 cm LVIDd: 4.2 cm FS: 43.1 % Ao root diam: 2.4 cm IVSd: 1.0 cm LVIDs: 2.4 cm EDV(Teich): 77.4 ml LVPWd: 1.0 cm ESV(Teich): 19.6 ml Ao root area: 4.6 cm2 EF(Teich): 74.7 % LA dimension: 3.5 cm Doppler Measurements \T\ Calculations MV E max mallory: MV P1/2t max mallory: Ao V2 max: LV V1 max P.7 cm/sec 116.3 cm/sec 146.6 cm/sec 6.0 mmHg MV A max mallory: MV P1/2t: 46.3 msec Ao max PG: LV V1 max: 136.0 cm/sec 8.6 mmHg 122.8 cm/sec MV E/A: 0.85 MVA(P1/2t): 4.8 cm2 MV dec slope: 735.6 cm/sec2 MV dec time: 0.16 sec PA V2 max: TR max mallory: 91.8 cm/sec 268.8 cm/sec PA max PG: TR max P.9 mmHg 3.4 mmHg Left Ventricle The left ventricle is grossly normal size. There is borderline concentric left ventricular hypertrophy. The left ventricular ejection fraction is normal. Doppler measurements suggest pseudonormalized left ventricular relaxation, which is associated with grade II/IV or mild to moderate diastolic dysfunction. Not all wall segments were well visualized. Wall motion cannot be accurately commented on, but no definite regional wall motion abnormalities noted. Right Ventricle Borderline right ventricular enlargement. There is normal right ventricular wall thickness. The right ventricular systolic function is normal. Atria The right atrium is mildly dilated. The left atrium is borderline dilated. Interarterial septum not well visualized and not well dopplered. Cannot comment on ASD/PFO presence. Mitral Valve The mitral valve is grossly normal. There is no mitral valve stenosis. There is a trace amount of mitral regurgitation. Aortic Valve The aortic valve is grossly normal. There is no aortic valve stenosis. No aortic regurgitation is present. Tricuspid Valve The tricuspid valve is not well visualized, but is grossly normal. There is no tricuspid stenosis. There is a trace to mild amount of tricuspid regurgitation. Tricuspid regurgitation jet envelope not well defined to measure RV systolic pressure accurately. Pulmonic Valve The pulmonic valve is not well visualized. Great Vessels The aortic root is not well visualized but is probably normal size. The inferior vena cava was not well visualized. Effusions There is no pericardial effusion. : GÉNESIS PRESLEY > Kareem Chapa
[2016-12-24 18:21] LABS: ABSOLUTE EOSINOPHILS # (AUTO) 0.3 10^3/uL (0.0-0.6); ABSOLUTE LYMPHOCYTES (AUTO) 1.4 10^3/uL (0.5-4.7); ABSOLUTE MONOCYTES (AUTO) 0.3 10^3/uL (0.1-1.4); ABSOLUTE NEUT (AUTO) 3.4 10^3/uL (1.7-8.2); BASOPHILS % (AUTO) 0.7 % (0-2); EOSINOPHILS % (AUTO) 6.2 % (0-6); HEMATOCRIT 26.3 % (36.0-47.0); HEMOGLOBIN 8.5 g/dL (12.0-15.5); HGB HCT DIFFERENCE -0.8; MEAN CORPUSCULAR HEMOGLOBIN 28.2 pg (27.0-33.4); MEAN CORPUSCULAR HGB CONC 32.3 g/dL (32.0-36.0); MEAN CORPUSCULAR VOLUME 87 fl (80-97); RED BLOOD COUNT 3.02 10^6/uL (3.72-5.28); RED CELL DISTRIBUTION WIDTH 13.7 % (11.5-14.0); SEGMENTED NEUTROPHILS % (AUTO) 62.1 % (42-78); WHITE BLOOD COUNT 5.5 10^3/uL (4.0-10.5)
--- NOTE | 2016-12-24 19:35 | PDOC PROGRESS REPORT ---
Subjective Progress Note for:: 12/24/16 Subjective:: Patient is currently on weaning trial when I visited her. Her mother is at bedside. Patient is awake and following commands. Physical Exam Vital Signs: Temp Pulse Resp BP Pulse Ox 99.6 F 104 H 12 111/71 95 12/23/16 03:58 12/23/16 03:58 12/23/16 07:01 12/23/16 07:01 12/23/16 07:01 Intake & Output 12/22/16 12/23/16 12/24/16 06:59 06:59 06:59 Intake Total 1511 Output Total 300 Balance 1211 Weight 101.1 kg Exam: General: Awake, tracks, intubated HEENT: AT/NC, PERRL, EOMI, oropharynx is moist, pink, no scleral icterus, no conjunctival injection, ET and NG in place Neck: No JVD, trachea midline Chest: Bilateral bibasilar Rales CV: Regular rate and rhythm, normal S1 and S2, no murmur, rub, or gallop Abdomen: Soft, nontender to palpation, nondistended, active bowel sounds; no rebound, rigidity, or guarding Extremities: No cyanosis, clubbing or edema Neuro: Follows simple commands Results Laboratory Results: 12/23/16 04:59 12/23/16 04:59 12/23/16 12/23/16 12/23/16 01:05 04:59 04:59 WBC 8.6 RBC 3.27 L Hgb 9.3 L Hct 28.8 L MCV 88 MCH 28.5 MCHC 32.3 RDW 13.5 Plt Count 287 Seg Neutrophils % 74.7 Lymphocytes % 17.9 Monocytes % 7.2 Eosinophils % 0.1 Basophils % 0.1 Absolute Neutrophils 6.5 Absolute Lymphocytes 1.6 Absolute Monocytes 0.6 Absolute Eosinophils 0.0 Absolute Basophils 0.0 Carbonic Acid 1.78 H HCO3/H2CO3 Ratio 21:1 ABG pH 7.43 ABG pCO2 59.1 H ABG pO2 54.5 L ABG HCO3 37.9 H ABG O2 Saturation 88.2 L ABG Base Excess 11.4 FiO2 28% Sodium Potassium Chloride Carbon Dioxide Anion Gap BUN Creatinine Est GFR ( Amer) Est GFR (Non-Af Amer) Glucose Calcium Magnesium Triglycerides Urine Color STRAW Urine Appearance CLEAR Urine pH 6.0 Ur Specific [place] > 1.060 Urine Protein NEGATIVE Urine Glucose (UA) NEGATIVE Urine Ketones NEGATIVE Urine Blood SMALL H Urine Nitrite NEGATIVE Ur Leukocyte Esterase NEGATIVE Urine WBC (Auto) 0 Urine RBC (Auto) 1 12/23/16 12/23/16 04:59 04:59 WBC RBC Hgb Hct MCV MCH MCHC RDW Plt Count Seg Neutrophils % Lymphocytes % Monocytes % Eosinophils % Basophils % Absolute Neutrophils Absolute Lymphocytes Absolute Monocytes Absolute Eosinophils Absolute Basophils Carbonic Acid HCO3/H2CO3 Ratio ABG pH ABG pCO2 ABG pO2 ABG HCO3 ABG O2 Saturation ABG Base Excess FiO2 Sodium 145.1 H Potassium 3.3 L Chloride 100 Carbon Dioxide 36 H Anion Gap 9 BUN 11 Creatinine 0.73 Est GFR ( Amer) > 60 Est GFR (Non-Af Amer) > 60 Glucose 84 Calcium 8.9 Magnesium 1.6 Triglycerides 151 H Urine Color Urine Appearance Urine pH Ur Specific [place] Urine Protein Urine Glucose (UA) Urine Ketones Urine Blood Urine Nitrite Ur Leukocyte Esterase Urine WBC (Auto) Urine RBC (Auto) Impressions: Ankle X-Ray 12/22/16 13:45 IMPRESSION: Left ankle fracture dislocation with disruption of the ankle mortise and distal tibiofibular joint Chest/Abdomen CTA 12/22/16 16:25 IMPRESSION: Diffuse parenchymal opacities throughout both lungs. Poor bolus. Cannot evaluate for pulmonary emboli. Chest X-Ray 12/23/16 00:00 IMPRESSION: Endotracheal tube with its tip 1.2 cm above the level of the rima. Bilateral opacities appear unchanged. Other findings as noted above Assessment & Plan - Diagnosis (1) Acute respiratory failure Qualifiers: Respiratory failure complication: hypoxia and hypercapnia Qualified Code(s): J96.01 - Acute respiratory failure with hypoxia Is this a current diagnosis for this admission?: YesPlan: Patient currently intubated. Have consulted Dr. stout (medicine for ventilator management (2) Pneumonia Qualifiers: Pneumonia type: due to unspecified organism Laterality: bilateral Lung location: unspecified part of lung Qualified Code(s): J18.9 - Pneumonia, unspecified organism Is this a current diagnosis for this admission?: YesPlan: Patient currently with bilateral bibasilar pneumonia. Community-acquired with no special features. Patient currently on scheduled nebulized treatments. Patient currently on Levaquin. (3) Hypokalemia Is this a current diagnosis for this admission?: YesPlan: Check magnesium and replete (4) Compensated respiratory acidosis Is this a current diagnosis for this admission?: Yes (5) Acute blood loss anemia Is this a current diagnosis for this admission?: YesPlan: Patient currently anemic likely secondary to blood loss. Have sent anemia labs and patient is found to be iron deficient as well. Will initiate patient on iron replacement. Have discussed this with her mother. (6) Fracture dislocation of left ankle Is this a current diagnosis for this admission?: YesPlan: Have consulted orthopedics. Patient will need surgery within the next 7 days. (7) Morbid obesity with BMI of 40.0-44.9, adult Is this a current diagnosis for this admission?: Yes - Time Critical Time spent with patient: 35 or more minutes Medications reviewed and adjusted accordingly: Yes
[2016-12-24] MEDS: ACETYLCYSTEINE 20% SOLN 800 MG/4 ML VIAL.NEB NEB SCH (20:46)
[2016-12-24] MEDS: MIRTAZAPINE 15 MG TABLET PO SCH (22:12)
[2016-12-25] MEDS: PROPOFOL 100 ML IV PRN ×5 (01:36→20:46)
[2016-12-25] MEDS: GUAIFENESIN SYRP 200 MG/10 ML UDC NG SCH ×6 (01:42→21:14)
[2016-12-25] MEDS: NORMAL SALINE 100 ML with PANTOPRAZOLE SODIUM 80 MG IV PRN ×4 (01:42→20:39)
[2016-12-25] MEDS: IPRATROPIUM/ALBUTEROL 0.5-2.5 MG/3 ML AMPUL NEB SCH ×4 (03:01→20:07)
[2016-12-25 04:37] LABS: ABSOLUTE EOSINOPHILS # (AUTO) 0.4 10^3/uL (0.0-0.6); ABSOLUTE LYMPHOCYTES (AUTO) 1.6 10^3/uL (0.5-4.7); ABSOLUTE MONOCYTES (AUTO) 0.3 10^3/uL (0.1-1.4); ABSOLUTE NEUT (AUTO) 2.5 10^3/uL (1.7-8.2); BASOPHILS % (AUTO) 0.7 % (0-2); EOSINOPHILS % (AUTO) 7.8 % (0-6); HEMATOCRIT 25.7 % (36.0-47.0); HEMOGLOBIN 8.4 g/dL (12.0-15.5); HGB HCT DIFFERENCE -0.5; LYMPHOCYTES % (AUTO) 32.8 % (13-45); MEAN CORPUSCULAR HEMOGLOBIN 28.3 pg (27.0-33.4); MEAN CORPUSCULAR HGB CONC 32.5 g/dL (32.0-36.0); MEAN CORPUSCULAR VOLUME 87 fl (80-97); MONOCYTES % (AUTO) 6.4 % (3-13); RED BLOOD COUNT 2.95 10^6/uL (3.72-5.28); SEGMENTED NEUTROPHILS % (AUTO) 52.3 % (42-78); WHITE BLOOD COUNT 4.8 10^3/uL (4.0-10.5)
[2016-12-25 04:39] LABS: ANION GAP 7 (5-19); BLOOD UREA NITROGEN 6 mg/dL (7-20); CALCIUM 8.6 mg/dL (8.4-10.2); CARBON DIOXIDE 29 mmol/L (22-30); CHLORIDE 109 mmol/L (98-107); CREATININE RESULT 0.64 mg/dL (0.52-1.25); GLUCOSE 88 mg/dL (75-110); MAGNESIUM 1.8 mg/dL (1.6-2.3); PHOSPHORUS 3.7 mg/dL (2.5-4.5); POTASSIUM 3.5 mmol/L (3.6-5.0); SODIUM 144.6 mmol/L (137-145)
[2016-12-25 05:59] LABS: ARTERIAL BLOOD BASE EXCESS 1.6 mmol/L; ARTERIAL BLOOD O2 SATURATION 93.9 % (94-98)
[2016-12-25] MEDS: NORMAL SALINE 1000 ML 1,000 ML IV PRN ×2 (06:22→16:30)
[2016-12-25] MEDS ORDERED: HEPARIN SOD (PORCINE) 5,000 UNIT/ML 1 ML SYRINGE ONE (06:30)
[2016-12-25] MEDS: HEPARIN SOD (PORCINE) 5,000 UNIT/ML 1 ML SYRINGE SUBCUT SCH ×3 (06:37→21:15)
[2016-12-25] MEDS ORDERED: POTASSIUM CHLORIDE 20 MEQ/15 ML UDCUP NG ONE (08:00)
[2016-12-25] MEDS: ACETYLCYSTEINE 20% SOLN 800 MG/4 ML VIAL.NEB NEB SCH ×2 (08:05→20:07)
[2016-12-25] MEDS: MAGNESIUM SULFATE/D5W 1 GM/100 ML RTUPB IV SCH ×2 (08:32→09:51)
[2016-12-25] MEDS ORDERED: ROCURONIUM BROMIDE INJ 50 MG/5 ML VIAL IV ONE (08:45)
[2016-12-25] MEDS ORDERED: SUCCINYLCHOLINE CHLORIDE INJ 200 MG/10 ML VIAL ONE (08:45)
[2016-12-25] MEDS: LEVOFLOXACIN 750 MG/D5W RTU 150 ML IV SCH (09:52)
[2016-12-25] MEDS: LEVOTHYROXINE SODIUM 0.025 MG TABLET PO SCH (09:53)
[2016-12-25] MEDS: MAGNESIUM OXIDE 400 MG TABLET NG SCH ×3 (09:53→20:43)
[2016-12-25] MEDS: NYSTATIN TOPICAL POWDER 15 GM TP SCH ×2 (09:53→20:45)
[2016-12-25] MEDS: AMLODIPINE BESYLATE 5 MG TABLET NG SCH ×2 (09:53→21:14)
--- NOTE | 2016-12-25 14:34 | PDOC CONSULTATION ---
Consultation Consult Date: 12/25/16 Consult reason:: Left ankle fracture/dislocation History of Present Illness Admission Date/PCP: 12/23/16 00:51 Patient complains of: Left ankle fracture History of Present Illness: 56-year-old female who is taking care of by family member. She status post fall injuring her left ankle and suffering an ankle fracture dislocation with syndesmotic injury. The ER proceeded to then sedated and able to successfully reduce and splint her left ankle. Fortunately the patient the head some issues after conscious sedation and the patient ended up intubated and admitted. Upon admission she was noted to have pneumonia. Currently she splinted in the leg elevated and the still intubated. History was given by her family member stating she had a tripped and fell. Has any previous surgeries or injuries. She states having no baseline neuropathy or weakness. She does complain of the deformity and pain when she was brought to the ER. Denies any fevers chills. Past Medical History Cardiac Medical History: Reports: Hypertension Endocrine Medical History: Reports: Hypothyroidism Psychiatric Medical History: Denies: Depression Social History Lives with: Family Smoking Status: Never Smoker Frequency of Alcohol Use: None Hx Recreational Drug Use: No Drugs: None Hx Prescription Drug Abuse: No - Advance Directive Resuscitation Status: Full Code Family History Family History: Reviewed & Not Pertinent Parental Family History Reviewed: Yes Children Family History Reviewed: Yes Sibling(s) Family History Reviewed.: Yes Medication/Allergy Home Medications: Amlodipine Besylate [Norvasc 5 mg Tablet] 5 mg PO DAILY 12/23/16 Atorvastatin Calcium [Lipitor 10 mg Tablet] 10 mg PO QHS 12/23/16 Clotrimazole/Betamethasone Dip [Clotrimazole-Betamethasone Crm] 1 applic TOP BID 12/23/16 Docusate Sodium [Colace 100 mg Capsule] 100 mg PO DAILYP PRN 12/23/16 Hydroxyzine HCl [Atarax 25 mg Tablet] 25 mg PO HSP PRN 12/23/16 Levothyroxine Sodium [Synthroid 0.025 mg Tablet] 0.025 mg PO DAILY 12/23/16 Lisinopril [Prinivil 5 mg Tablet] 5 mg PO DAILY 12/23/16 Mirtazapine [Remeron 15 mg Tablet] 15 mg PO QHS 12/23/16 Potassium Chloride [Klor-Con 10 Meq Tablet.sa] 10 meq PO BID 12/23/16 Allergies/Adverse Reactions: No Known Allergies Allergy (Verified 08/27/12 09:50) Review of Systems All systems: reviewed and no additional remarkable complaints except as stated Musculoskeletal: PRESENT: as per HPI, deformity, dislocation, muscle weakness Physical Exam Vital Signs: Temp Pulse Resp BP Pulse Ox 36.8 C 93 18 122/79 97 12/25/16 14:00 12/25/16 14:00 12/25/16 14:00 12/25/16 14:00 12/25/16 14:00 Intake & Output 12/24/16 12/25/16 12/26/16 06:59 06:59 06:59 Intake Total 3699 3879 Output Total 1080 2785 2019 Balance 2619 1094 -2020 Weight 107.3 kg 108.5 kg General appearance: PRESENT: no acute distress, other - Intubated Head exam: PRESENT: atraumatic Respiratory exam: PRESENT: symmetrical, tachypnea, unlabored. ABSENT: accessory muscle use, retraction Vascular exam: PRESENT: normal capillary refill Musculoskeletal exam: PRESENT: tenderness - Patient has tenderness and responds by grimacing when I palpate the anterior lateral medial and posterior aspect of the ankle. Splint is intact. No fracture blisters see him. No ecchymosis. Significant swelling. Her capillary refill.. ABSENT: dislocation, full ROM Neurological exam: PRESENT: other - Patient PHYSICAL exam and psychiatric exam is deferred with the fact the patient is intubated and only response to stimuli. Psychiatric exam: PRESENT: other - No psychiatric exam due to the fact that patient was intubated. Skin exam: PRESENT: intact. ABSENT: abrasion, erythema, rash Results Laboratory Results: 12/25/16 04:10 12/25/16 04:10 12/23/16 12/24/16 12/25/16 11:10 17:04 04:10 WBC 5.5 RBC 3.02 L Hgb 8.5 L Hct 26.3 L MCV 87 MCH 28.2 MCHC 32.3 RDW 13.7 Plt Count 243 Seg Neutrophils % 62.1 Lymphocytes % 25.0 Monocytes % 6.0 Eosinophils % 6.2 H Basophils % 0.7 Absolute Neutrophils 3.4 Absolute Lymphocytes 1.4 Absolute Monocytes 0.3 Absolute Eosinophils 0.3 Absolute Basophils 0.0 Carbonic Acid HCO3/H2CO3 Ratio ABG pH ABG pCO2 ABG pO2 ABG HCO3 ABG O2 Saturation ABG Base Excess FiO2 Sodium 144.6 Potassium 3.5 L Chloride 109 H Carbon Dioxide 29 Anion Gap 7 BUN 6 L Creatinine 0.64 Est GFR ( Amer) > 60 Est GFR (Non-Af Amer) > 60 Glucose 88 Calcium 8.6 Phosphorus 3.7 Magnesium 1.8 Transferrin 190 L 12/25/16 12/25/16 04:10 05:45 WBC 4.8 RBC 2.95 L Hgb 8.4 L Hct 25.7 L MCV 87 MCH 28.3 MCHC 32.5 RDW 14.0 Plt Count 237 Seg Neutrophils % 52.3 Lymphocytes % 32.8 Monocytes % 6.4 Eosinophils % 7.8 H Basophils % 0.7 Absolute Neutrophils 2.5 Absolute Lymphocytes 1.6 Absolute Monocytes 0.3 Absolute Eosinophils 0.4 Absolute Basophils 0.0 Carbonic Acid 1.35 HCO3/H2CO3 Ratio 19:1 ABG pH 7.40 ABG pCO2 44.7 ABG pO2 69.9 L ABG HCO3 26.8 H ABG O2 Saturation 93.9 L ABG Base Excess 1.6 FiO2 30% Sodium Potassium Chloride Carbon Dioxide Anion Gap BUN Creatinine Est GFR ( Amer) Est GFR (Non-Af Amer) Glucose Calcium Phosphorus Magnesium Transferrin Impressions: Ankle X-Ray 12/22/16 13:45 IMPRESSION: Left ankle fracture dislocation with disruption of the ankle mortise and distal tibiofibular joint Chest/Abdomen CTA 12/22/16 16:25 IMPRESSION: Diffuse parenchymal opacities throughout both lungs. Poor bolus. Cannot evaluate for pulmonary emboli. KUB X-Ray 12/25/16 00:00 IMPRESSION: NO RADIOGRAPHIC EVIDENCE FOR ACUTE ABDOMINAL DISEASE. LARGE CALCIFICATION IN THE PELVIS, POSSIBLY CALCIFIED UTERINE FIBROID. CANNOT EXCLUDE OTHER ETIOLOGY. CT MAY BE CONSIDERED. Chest X-Ray 12/25/16 06:00 IMPRESSION: LOW LUNG VOLUMES WITH SCATTERED ATELECTASIS. SLIGHT IMPROVEMENT. Assessment & Plan - Diagnosis (1) Fracture dislocation of left ankle Is this a current diagnosis for this admission?: Yes (2) Ankle syndesmosis disruption Qualifiers: Encounter type: subsequent encounter Laterality: left Qualified Code(s): S93.432D - Sprain of tibiofibular ligament of left ankle, subsequent encounter Is this a current diagnosis for this admission?: YesPlan: Patient is being treated for her pneumonia currently. The patient will stay intubated over the weekend and on Wednesday we'll probably proceed with open reduction internal fixation of her left ankle fracture dislocation with syndesmotic injury. Continue nonweightbearing. Continue ice and elevation. Continue splint. Discussed the procedure with the power of title attorney which understood and proceeded to consent for surgery. We'll reexamine him Wednesday and make sure that she is progressed as expected. If primary team tells me to proceed we will plan the surgery on Wednesday. Hold any anticoagulation Wednesday night.
[2016-12-25] MEDS ORDERED: PROPOFOL INJ 200 MG/20 ML VIAL IV ONE (18:56)
[2016-12-25] MEDS ORDERED: PHARMACY COMMUNICATION ORDER MC NR (19:00)
[2016-12-25 20:00] LABS: ARTERIAL BLOOD BASE EXCESS 0.4 mmol/L; ARTERIAL BLOOD O2 SATURATION 93.4 % (94-98)
--- NOTE | 2016-12-25 20:31 | PDOC PROGRESS REPORT ---
Subjective Progress Note for:: 12/25/16 Subjective:: Unable to obtain review of systems secondary to intubated status Physical Exam Vital Signs: Temp Pulse Resp BP Pulse Ox 98.6 F 84 12 101/68 97 12/24/16 20:00 12/25/16 03:01 12/25/16 06:01 12/25/16 06:01 12/25/16 06:01 Intake & Output 12/24/16 12/25/16 12/26/16 06:59 06:59 06:59 Intake Total 3699 3879 Output Total 1080 4835 Balance 2619 1094 Weight 107.3 kg 108.5 kg Exam: General: Awake, tracks, intubated HEENT: AT/NC, PERRL, EOMI, oropharynx is moist, pink, no scleral icterus, no conjunctival injection, ET and NG in place Neck: No JVD, trachea midline Chest: Occasional bilateral bibasal or rhonchi CV: Regular rate and rhythm, normal S1 and S2, no murmur, rub, or gallop Abdomen: Soft, nontender to palpation, nondistended, active bowel sounds; no rebound, rigidity, or guarding Extremities: No cyanosis, clubbing or edema, left lower extremity in splint Results Laboratory Results: 12/25/16 04:10 12/25/16 04:10 12/24/16 12/25/16 12/25/16 17:04 04:10 04:10 WBC 5.5 4.8 RBC 3.02 L 2.95 L Hgb 8.5 L 8.4 L Hct 26.3 L 25.7 L MCV 87 87 MCH 28.2 28.3 MCHC 32.3 32.5 RDW 13.7 14.0 Plt Count 243 237 Seg Neutrophils % 62.1 52.3 Lymphocytes % 25.0 32.8 Monocytes % 6.0 6.4 Eosinophils % 6.2 H 7.8 H Basophils % 0.7 0.7 Absolute Neutrophils 3.4 2.5 Absolute Lymphocytes 1.4 1.6 Absolute Monocytes 0.3 0.3 Absolute Eosinophils 0.3 0.4 Absolute Basophils 0.0 0.0 Carbonic Acid HCO3/H2CO3 Ratio ABG pH ABG pCO2 ABG pO2 ABG HCO3 ABG O2 Saturation ABG Base Excess FiO2 Sodium 144.6 Potassium 3.5 L Chloride 109 H Carbon Dioxide 29 Anion Gap 7 BUN 6 L Creatinine 0.64 Est GFR ( Amer) > 60 Est GFR (Non-Af Amer) > 60 Glucose 88 Calcium 8.6 Phosphorus 3.7 Magnesium 1.8 12/25/16 05:45 WBC RBC Hgb Hct MCV MCH MCHC RDW Plt Count Seg Neutrophils % Lymphocytes % Monocytes % Eosinophils % Basophils % Absolute Neutrophils Absolute Lymphocytes Absolute Monocytes Absolute Eosinophils Absolute Basophils Carbonic Acid 1.35 HCO3/H2CO3 Ratio 19:1 ABG pH 7.40 ABG pCO2 44.7 ABG pO2 69.9 L ABG HCO3 26.8 H ABG O2 Saturation 93.9 L ABG Base Excess 1.6 FiO2 30% Sodium Potassium Chloride Carbon Dioxide Anion Gap BUN Creatinine Est GFR ( Amer) Est GFR (Non-Af Amer) Glucose Calcium Phosphorus Magnesium Impressions: Ankle X-Ray 12/22/16 13:45 IMPRESSION: Left ankle fracture dislocation with disruption of the ankle mortise and distal tibiofibular joint Chest/Abdomen CTA 12/22/16 16:25 IMPRESSION: Diffuse parenchymal opacities throughout both lungs. Poor bolus. Cannot evaluate for pulmonary emboli. Chest X-Ray 12/25/16 06:00 IMPRESSION: LOW LUNG VOLUMES WITH SCATTERED ATELECTASIS. SLIGHT IMPROVEMENT. Assessment & Plan - Diagnosis (1) Acute respiratory failure Qualifiers: Respiratory failure complication: hypoxia and hypercapnia Qualified Code(s): J96.01 - Acute respiratory failure with hypoxia Is this a current diagnosis for this admission?: YesPlan: Patient currently intubated. Have consulted Dr. stout pulmonary medicine for ventilator management (2) Pneumonia Qualifiers: Pneumonia type: due to unspecified organism Laterality: bilateral Lung location: unspecified part of lung Qualified Code(s): J18.9 - Pneumonia, unspecified organism Is this a current diagnosis for this admission?: YesPlan: Patient currently with bilateral bibasilar pneumonia. Community-acquired with no special features. Patient currently on scheduled nebulized treatments. Currently pending culture. Patient currently on Levaquin. (3) Hypokalemia Is this a current diagnosis for this admission?: YesPlan: Repleted. Give additional potassium. Check magnesium and replete (4) Compensated respiratory acidosis Is this a current diagnosis for this admission?: Yes (5) Acute blood loss anemia Is this a current diagnosis for this admission?: YesPlan: Patient currently anemic likely secondary to blood loss. Patient also has component of iron deficiency anemia. Continue iron repletion. Transfuse if hemoglobin drops below 8 (6) Fracture dislocation of left ankle Is this a current diagnosis for this admission?: YesPlan: Have consulted orthopedics. Plan for surgery on Wednesday. (7) Morbid obesity with BMI of 40.0-44.9, adult Is this a current diagnosis for this admission?: Yes - Time Critical Time spent with patient: 25-34 minutes Medications reviewed and adjusted accordingly: Yes
[2016-12-25] MEDS ORDERED: MIDAZOLAM HCL 100 ML IV PRN (21:15)
[2016-12-25] MEDS: MIRTAZAPINE 15 MG TABLET NG SCH (21:17)
[2016-12-26] MEDS: PROPOFOL 100 ML IV PRN ×7 (00:04→23:27)
[2016-12-26] MEDS: GUAIFENESIN SYRP 200 MG/10 ML UDC NG SCH ×6 (01:29→21:36)
[2016-12-26] MEDS: IPRATROPIUM/ALBUTEROL 0.5-2.5 MG/3 ML AMPUL NEB SCH ×4 (02:08→20:14)
[2016-12-26 04:31] LABS: ABSOLUTE EOSINOPHILS # (AUTO) 0.4 10^3/uL (0.0-0.6); ABSOLUTE LYMPHOCYTES (AUTO) 1.3 10^3/uL (0.5-4.7); ABSOLUTE MONOCYTES (AUTO) 0.3 10^3/uL (0.1-1.4); ABSOLUTE NEUT (AUTO) 2.8 10^3/uL (1.7-8.2); BASOPHILS % (AUTO) 0.6 % (0-2); EOSINOPHILS % (AUTO) 7.9 % (0-6); HEMATOCRIT 25.5 % (36.0-47.0); HGB HCT DIFFERENCE -1.5; LYMPHOCYTES % (AUTO) 27.4 % (13-45); MEAN CORPUSCULAR HEMOGLOBIN 27.5 pg (27.0-33.4); MEAN CORPUSCULAR HGB CONC 31.5 g/dL (32.0-36.0); MEAN CORPUSCULAR VOLUME 87 fl (80-97); MONOCYTES % (AUTO) 6.2 % (3-13); RED BLOOD COUNT 2.92 10^6/uL (3.72-5.28); RED CELL DISTRIBUTION WIDTH 14.2 % (11.5-14.0); SEGMENTED NEUTROPHILS % (AUTO) 57.9 % (42-78); WHITE BLOOD COUNT 4.8 10^3/uL (4.0-10.5)
[2016-12-26 04:52] LABS: ANION GAP 9 (5-19); BLOOD UREA NITROGEN 5 mg/dL (7-20); CALCIUM 8.4 mg/dL (8.4-10.2); CARBON DIOXIDE 27 mmol/L (22-30); CHLORIDE 110 mmol/L (98-107); CREATININE RESULT 0.57 mg/dL (0.52-1.25); GLUCOSE 84 mg/dL (75-110); POTASSIUM 3.6 mmol/L (3.6-5.0); SODIUM 145.6 mmol/L (137-145); TRIGLYCERIDES 199 mg/dL (<150)
[2016-12-26] MEDS: HEPARIN SOD (PORCINE) 5,000 UNIT/ML 1 ML SYRINGE SUBCUT SCH ×3 (05:02→21:37)
[2016-12-26] MEDS: NORMAL SALINE 100 ML with PANTOPRAZOLE SODIUM 80 MG IV PRN ×2 (05:59)
[2016-12-26 06:03] LABS: ARTERIAL BLOOD BASE EXCESS -0.7 mmol/L; ARTERIAL BLOOD O2 SATURATION 95.2 % (94-98)
[2016-12-26] MEDS: ACETYLCYSTEINE 20% SOLN 800 MG/4 ML VIAL.NEB NEB SCH ×2 (07:42→20:00)
[2016-12-26] MEDS ORDERED: POTASSIUM CHLORIDE 20 MEQ/15 ML UDCUP NG ONE (09:30)
[2016-12-26] MEDS: AMLODIPINE BESYLATE 5 MG TABLET NG SCH ×2 (10:18→21:36)
[2016-12-26] MEDS: MAGNESIUM OXIDE 400 MG TABLET NG SCH ×3 (10:18→17:07)
[2016-12-26] MEDS: LEVOTHYROXINE SODIUM 0.025 MG TABLET NG SCH (10:19)
[2016-12-26] MEDS: LEVOFLOXACIN 750 MG/D5W RTU 150 ML IV SCH (10:19)
[2016-12-26] MEDS: NYSTATIN TOPICAL POWDER 15 GM TP SCH ×2 (10:23→17:07)
[2016-12-26] MEDS: DEXTROSE 5%-1/2 NORMAL SALINE 1,000 ML IV PRN (15:01)
[2016-12-26] MEDS: MIRTAZAPINE 15 MG TABLET NG SCH (21:35)
[2016-12-27] MEDS: GUAIFENESIN SYRP 200 MG/10 ML UDC NG SCH ×6 (01:08→21:44)
[2016-12-27] MEDS: IPRATROPIUM/ALBUTEROL 0.5-2.5 MG/3 ML AMPUL NEB SCH ×4 (01:28→20:10)
[2016-12-27] MEDS: PROPOFOL 100 ML IV PRN ×7 (03:27→22:55)
[2016-12-27 04:10] LABS: ABSOLUTE EOSINOPHILS # (AUTO) 0.5 10^3/uL (0.0-0.6); ABSOLUTE MONOCYTES (AUTO) 0.4 10^3/uL (0.1-1.4); ABSOLUTE NEUT (AUTO) 3.7 10^3/uL (1.7-8.2); BASOPHILS % (AUTO) 0.4 % (0-2); EOSINOPHILS % (AUTO) 8.2 % (0-6); HEMATOCRIT 25.2 % (36.0-47.0); HEMOGLOBIN 8.2 g/dL (12.0-15.5); HGB HCT DIFFERENCE -0.6; LYMPHOCYTES % (AUTO) 17.6 % (13-45); MEAN CORPUSCULAR HEMOGLOBIN 28.5 pg (27.0-33.4); MEAN CORPUSCULAR HGB CONC 32.7 g/dL (32.0-36.0); MEAN CORPUSCULAR VOLUME 87 fl (80-97); MONOCYTES % (AUTO) 6.6 % (3-13); RED BLOOD COUNT 2.89 10^6/uL (3.72-5.28); SEGMENTED NEUTROPHILS % (AUTO) 67.2 % (42-78); WHITE BLOOD COUNT 5.5 10^3/uL (4.0-10.5)
[2016-12-27 04:34] LABS: ANION GAP 5 (5-19); BLOOD UREA NITROGEN 5 mg/dL (7-20); CALCIUM 8.7 mg/dL (8.4-10.2); CARBON DIOXIDE 29 mmol/L (22-30); CHLORIDE 107 mmol/L (98-107); GLUCOSE 107 mg/dL (75-110); POTASSIUM 3.6 mmol/L (3.6-5.0); SODIUM 141.3 mmol/L (137-145)
[2016-12-27] MEDS: HEPARIN SOD (PORCINE) 5,000 UNIT/ML 1 ML SYRINGE SUBCUT SCH (05:07)
[2016-12-27 05:55] LABS: ARTERIAL BLOOD BASE EXCESS 2.3 mmol/L; ARTERIAL BLOOD O2 SATURATION 93.5 % (94-98)
[2016-12-27] MEDS ORDERED: POTASSIUM CHLORIDE 20 MEQ/15 ML UDCUP NG ONE (07:30)
[2016-12-27] MEDS: ACETYLCYSTEINE 20% SOLN 800 MG/4 ML VIAL.NEB NEB SCH ×2 (08:27→20:10)
[2016-12-27] MEDS ORDERED: BISACODYL 10 MG SUPP.RECT PR PRN (09:26)
[2016-12-27] MEDS ORDERED: METOCLOPRAMIDE HCL INJ/PF 10 MG/2 ML SDV IV ONE (10:00)
[2016-12-27] MEDS ORDERED: MAGNESIUM CITRATE 296 ML BOTTLE PO ONE (10:00)
[2016-12-27] MEDS ORDERED: BISACODYL 10 MG SUPP.RECT PR ONE (10:00)
[2016-12-27] MEDS: AMLODIPINE BESYLATE 5 MG TABLET NG SCH ×2 (10:07→21:44)
[2016-12-27] MEDS: LEVOTHYROXINE SODIUM 0.025 MG TABLET NG SCH (10:07)
[2016-12-27] MEDS: LEVOFLOXACIN 750 MG/D5W RTU 150 ML IV SCH (10:07)
[2016-12-27] MEDS: MAGNESIUM OXIDE 400 MG TABLET NG SCH ×3 (10:07→17:30)
[2016-12-27] MEDS: NYSTATIN TOPICAL POWDER 15 GM TP SCH ×2 (10:29→17:31)
[2016-12-27] MEDS: FENTANYL CITRATE INJ/PF 100 MCG/2 ML AMPUL IV PRN (14:29)
[2016-12-27] MEDS: METOCLOPRAMIDE HCL INJ/PF 10 MG/2 ML SDV IV SCH ×2 (15:31→21:44)
--- NOTE | 2016-12-27 20:34 | PDOC PROGRESS REPORT ---
Subjective Progress Note for:: 12/26/16 Subjective:: Unable to obtain review of systems secondary to intubated status Physical Exam Vital Signs: Temp Pulse Resp BP Pulse Ox 97.7 F 84 12 97/63 L 97 12/26/16 08:00 12/26/16 08:00 12/26/16 08:00 12/26/16 08:00 12/26/16 08:00 Intake & Output 12/25/16 12/26/16 12/27/16 06:59 06:59 06:59 Intake Total 3879 3930 Output Total 2785 4630 100 Balance 1094 -700 -100 Weight 108.5 kg 107.3 kg Exam: General: Awake, tracks, intubated HEENT: AT/NC, PERRL, EOMI, oropharynx is moist, pink, no scleral icterus, no conjunctival injection, ET and NG in place Neck: No JVD, trachea midline Chest: Diminished bases otherwise clear CV: Regular rate and rhythm, normal S1 and S2, no murmur, rub, or gallop Abdomen: Soft, nontender to palpation, nondistended, active bowel sounds; no rebound, rigidity, or guarding Extremities: No cyanosis, clubbing or edema, left lower extremity in splint Results Laboratory Results: 12/26/16 04:20 12/26/16 04:20 12/25/16 12/26/16 12/26/16 19:45 04:20 04:20 WBC 4.8 RBC 2.92 L Hgb 8.0 L Hct 25.5 L MCV 87 MCH 27.5 MCHC 31.5 L RDW 14.2 H Plt Count 248 Seg Neutrophils % 57.9 Lymphocytes % 27.4 Monocytes % 6.2 Eosinophils % 7.9 H Basophils % 0.6 Absolute Neutrophils 2.8 Absolute Lymphocytes 1.3 Absolute Monocytes 0.3 Absolute Eosinophils 0.4 Absolute Basophils 0.0 Carbonic Acid 1.54 H HCO3/H2CO3 Ratio 17:1 ABG pH 7.34 L ABG pCO2 51.1 H ABG pO2 72.1 L ABG HCO3 26.8 H ABG O2 Saturation 93.4 L ABG Base Excess 0.4 FiO2 30% Sodium 145.6 H Potassium 3.6 Chloride 110 H Carbon Dioxide 27 Anion Gap 9 BUN 5 L Creatinine 0.57 Est GFR ( Amer) > 60 Est GFR (Non-Af Amer) > 60 Glucose 84 Calcium 8.4 Triglycerides 199 H 12/26/16 05:45 WBC RBC Hgb Hct MCV MCH MCHC RDW Plt Count Seg Neutrophils % Lymphocytes % Monocytes % Eosinophils % Basophils % Absolute Neutrophils Absolute Lymphocytes Absolute Monocytes Absolute Eosinophils Absolute Basophils Carbonic Acid 1.21 HCO3/H2CO3 Ratio 19:1 ABG pH 7.40 ABG pCO2 40.3 ABG pO2 75.9 L ABG HCO3 24.1 ABG O2 Saturation 95.2 ABG Base Excess -0.7 FiO2 30% Sodium Potassium Chloride Carbon Dioxide Anion Gap BUN Creatinine Est GFR ( Amer) Est GFR (Non-Af Amer) Glucose Calcium Triglycerides Impressions: Ankle X-Ray 12/22/16 13:45 IMPRESSION: Left ankle fracture dislocation with disruption of the ankle mortise and distal tibiofibular joint Chest/Abdomen CTA 12/22/16 16:25 IMPRESSION: Diffuse parenchymal opacities throughout both lungs. Poor bolus. Cannot evaluate for pulmonary emboli. KUB X-Ray 12/25/16 00:00 IMPRESSION: NO RADIOGRAPHIC EVIDENCE FOR ACUTE ABDOMINAL DISEASE. LARGE CALCIFICATION IN THE PELVIS, POSSIBLY CALCIFIED UTERINE FIBROID. CANNOT EXCLUDE OTHER ETIOLOGY. CT MAY BE CONSIDERED. Chest X-Ray 12/25/16 06:00 IMPRESSION: LOW LUNG VOLUMES WITH SCATTERED ATELECTASIS. SLIGHT IMPROVEMENT. Assessment & Plan - Diagnosis (1) Acute respiratory failure Qualifiers: Respiratory failure complication: hypoxia and hypercapnia Qualified Code(s): J96.01 - Acute respiratory failure with hypoxia Is this a current diagnosis for this admission?: YesPlan: Patient currently intubated. He did manage to self extubate and was successfully reintubated. (2) Pneumonia Qualifiers: Pneumonia type: due to unspecified organism Laterality: bilateral Lung location: unspecified part of lung Qualified Code(s): J18.9 - Pneumonia, unspecified organism Is this a current diagnosis for this admission?: YesPlan: Patient currently with bilateral bibasilar pneumonia. Growing Haemophilus influenza Community-acquired with no special features. Patient currently on scheduled nebulized treatments. Patient currently on Levaquin. (3) Hypokalemia Is this a current diagnosis for this admission?: Yes (4) Compensated respiratory acidosis Is this a current diagnosis for this admission?: Yes (5) Acute blood loss anemia Is this a current diagnosis for this admission?: YesPlan: Patient currently anemic likely secondary to blood loss. Patient also has component of iron deficiency anemia. Continue iron repletion. Transfuse if hemoglobin drops below 8 (6) Fracture dislocation of left ankle Is this a current diagnosis for this admission?: YesPlan: Have consulted orthopedics. Plan for surgery on Wednesday. (7) Morbid obesity with BMI of 40.0-44.9, adult Is this a current diagnosis for this admission?: Yes - Time Time Spent with patient: 25-34 minutes Medications reviewed and adjusted accordingly: Yes
--- NOTE | 2016-12-27 20:36 | PDOC PROGRESS REPORT ---
Subjective Progress Note for:: 12/27/16 Subjective:: Patient has not had a bowel movement in several days. Unable to obtain review of systems from patient secondary to intubated and sedated status Physical Exam Vital Signs: Temp Pulse Resp BP Pulse Ox 98.0 F 93 14 102/70 97 12/27/16 20:00 12/27/16 19:53 12/27/16 17:49 12/27/16 17:49 12/27/16 17:49 Intake & Output 12/26/16 12/27/16 12/28/16 06:59 06:59 06:59 Intake Total 3930 3101 1154 Output Total 4621 7300 2196 Balance -801 -724 -7378 Weight 107.3 kg 107.2 kg Exam: General: Awake, tracks, intubated HEENT: AT/NC, PERRL, EOMI, oropharynx is moist, pink, no scleral icterus, no conjunctival injection, ET and NG in place Neck: No JVD, trachea midline Chest: Occasional bilateral rhonchi CV: Regular rate and rhythm, normal S1 and S2, no murmur, rub, or gallop Abdomen: Soft, nontender to palpation, nondistended, hypoactive bowel sounds; no rebound, rigidity, or guarding Extremities: No cyanosis, clubbing or edema, left lower extremity in splint Results Laboratory Results: 12/27/16 04:00 12/27/16 04:00 12/27/16 12/27/16 12/27/16 04:00 04:00 05:45 WBC 5.5 RBC 2.89 L Hgb 8.2 L Hct 25.2 L MCV 87 MCH 28.5 MCHC 32.7 RDW 14.0 Plt Count 244 Seg Neutrophils % 67.2 Lymphocytes % 17.6 Monocytes % 6.6 Eosinophils % 8.2 H Basophils % 0.4 Absolute Neutrophils 3.7 Absolute Lymphocytes 1.0 Absolute Monocytes 0.4 Absolute Eosinophils 0.5 Absolute Basophils 0.0 Carbonic Acid 1.43 H HCO3/H2CO3 Ratio 19:1 ABG pH 7.39 ABG pCO2 47.6 H ABG pO2 69.3 L ABG HCO3 27.8 H ABG O2 Saturation 93.5 L ABG Base Excess 2.3 FiO2 30% Sodium 141.3 Potassium 3.6 Chloride 107 Carbon Dioxide 29 Anion Gap 5 BUN 5 L Creatinine 0.60 Est GFR ( Amer) > 60 Est GFR (Non-Af Amer) > 60 Glucose 107 Calcium 8.7 12/24/16 15:45 Sputum Gram Stain - Final 12/24/16 15:45 Sputum Sputum Culture - Final NO GROWTH 3 DAYS Impressions: Ankle X-Ray 12/22/16 13:45 IMPRESSION: Left ankle fracture dislocation with disruption of the ankle mortise and distal tibiofibular joint Chest/Abdomen CTA 12/22/16 16:25 IMPRESSION: Diffuse parenchymal opacities throughout both lungs. Poor bolus. Cannot evaluate for pulmonary emboli. KUB X-Ray 12/25/16 00:00 IMPRESSION: NO RADIOGRAPHIC EVIDENCE FOR ACUTE ABDOMINAL DISEASE. LARGE CALCIFICATION IN THE PELVIS, POSSIBLY CALCIFIED UTERINE FIBROID. CANNOT EXCLUDE OTHER ETIOLOGY. CT MAY BE CONSIDERED. Chest X-Ray 12/25/16 06:00 IMPRESSION: LOW LUNG VOLUMES WITH SCATTERED ATELECTASIS. SLIGHT IMPROVEMENT. Assessment & Plan - Diagnosis (1) Acute respiratory failure Qualifiers: Respiratory failure complication: hypoxia and hypercapnia Qualified Code(s): J96.01 - Acute respiratory failure with hypoxia Is this a current diagnosis for this admission?: YesPlan: Continue intubation for surgery Wednesday. (2) Pneumonia Qualifiers: Pneumonia type: due to Haemophilus influenzae Laterality: bilateral Lung location: unspecified part of lung Qualified Code(s): J14 - Pneumonia due to Hemophilus influenzae Is this a current diagnosis for this admission?: YesPlan: Patient currently with bilateral bibasilar pneumonia. Growing Haemophilus influenza Community-acquired with no special features. Patient currently on scheduled nebulized treatments. Patient currently on Levaquin. (3) Hypokalemia Is this a current diagnosis for this admission?: Yes (4) Compensated respiratory acidosis Is this a current diagnosis for this admission?: Yes (5) Acute blood loss anemia Is this a current diagnosis for this admission?: YesPlan: Patient currently anemic likely secondary to blood loss. Patient also has component of iron deficiency anemia. Continue iron repletion. Transfuse if hemoglobin drops below 8. (6) Fracture dislocation of left ankle Is this a current diagnosis for this admission?: YesPlan: Have consulted orthopedics. Plan for surgery on Wednesday. Patient found to have mild diastolic dysfunction otherwise no contraindication to surgery. (7) Morbid obesity with BMI of 40.0-44.9, adult Is this a current diagnosis for this admission?: Yes - Time Time Spent with patient: 25-34 minutes Medications reviewed and adjusted accordingly: Yes
[2016-12-27] MEDS: MIRTAZAPINE 15 MG TABLET NG SCH (21:44)
[2016-12-27] MEDS: LORAZEPAM INJ 2 MG/1 ML VIAL IV PRN (21:45)
[2016-12-28] MEDS: IPRATROPIUM/ALBUTEROL 0.5-2.5 MG/3 ML AMPUL NEB SCH ×4 (01:53→20:22)
[2016-12-28] MEDS: PROPOFOL 100 ML IV PRN ×6 (02:08→22:10)
[2016-12-28] MEDS: GUAIFENESIN SYRP 200 MG/10 ML UDC NG SCH ×6 (02:55→21:55)
[2016-12-28 05:54] LABS: ARTERIAL BLOOD BASE EXCESS 3.2 mmol/L; ARTERIAL BLOOD O2 SATURATION 93.8 % (94-98)
[2016-12-28 05:55] LABS: ABSOLUTE EOSINOPHILS # (AUTO) 0.4 10^3/uL (0.0-0.6); ABSOLUTE LYMPHOCYTES (AUTO) 0.8 10^3/uL (0.5-4.7); ABSOLUTE MONOCYTES (AUTO) 0.4 10^3/uL (0.1-1.4); ABSOLUTE NEUT (AUTO) 3.7 10^3/uL (1.7-8.2); BASOPHILS % (AUTO) 0.5 % (0-2); EOSINOPHILS % (AUTO) 7.5 % (0-6); HEMATOCRIT 26.5 % (36.0-47.0); HEMOGLOBIN 8.5 g/dL (12.0-15.5); LYMPHOCYTES % (AUTO) 15.5 % (13-45); MEAN CORPUSCULAR HEMOGLOBIN 28.1 pg (27.0-33.4); MEAN CORPUSCULAR HGB CONC 32.2 g/dL (32.0-36.0); MEAN CORPUSCULAR VOLUME 87 fl (80-97); MONOCYTES % (AUTO) 7.5 % (3-13); RED BLOOD COUNT 3.04 10^6/uL (3.72-5.28); RED CELL DISTRIBUTION WIDTH 14.2 % (11.5-14.0); WHITE BLOOD COUNT 5.4 10^3/uL (4.0-10.5)
[2016-12-28 06:02] LABS: PROTHROMBIN TIME 13.2 SEC (11.4-15.4)
[2016-12-28 06:03] LABS: PARTIAL THROMBOPLASTIN TIME 40.9 SEC (23.5-35.8)
[2016-12-28 06:09] LABS: ALANINE AMINOTRANSFERASE 80 U/L (9-52); ALBUMIN 2.6 g/dL (3.5-5.0); ALKALINE PHOSPHATASE 105 U/L (38-126); ANION GAP 7 (5-19); ASPARTATE AMINO TRANSFERASE 99 U/L (14-36); BILIRUBIN,TOTAL 0.7 mg/dL (0.2-1.3); BLOOD UREA NITROGEN 6 mg/dL (7-20); CALCIUM 9.1 mg/dL (8.4-10.2); CARBON DIOXIDE 29 mmol/L (22-30); CHLORIDE 105 mmol/L (98-107); CREATININE RESULT 0.61 mg/dL (0.52-1.25); GLUCOSE 94 mg/dL (75-110); POTASSIUM 3.9 mmol/L (3.6-5.0); SODIUM 140.7 mmol/L (137-145)
[2016-12-28] MEDS: ACETYLCYSTEINE 20% SOLN 800 MG/4 ML VIAL.NEB NEB SCH ×2 (07:52→20:23)
[2016-12-28] MEDS: METOCLOPRAMIDE HCL INJ/PF 10 MG/2 ML SDV IV SCH ×4 (08:20→21:56)
[2016-12-28] MEDS ORDERED: NORMAL SALINE 1000 ML 1,000 ML IV ONE (08:50)
[2016-12-28] MEDS: NYSTATIN TOPICAL POWDER 15 GM TP SCH ×2 (10:00→17:24)
[2016-12-28] MEDS: AMLODIPINE BESYLATE 5 MG TABLET NG SCH ×2 (10:40→21:54)
[2016-12-28] MEDS: DEXTROSE 5%-1/2 NORMAL SALINE 1,000 ML IV PRN ×2 (10:55→19:30)
[2016-12-28] MEDS: LEVOFLOXACIN 750 MG/D5W RTU 150 ML IV SCH (10:56)
[2016-12-28] MEDS: LEVOTHYROXINE SODIUM 0.025 MG TABLET NG SCH (11:36)
[2016-12-28] MEDS: MAGNESIUM OXIDE 400 MG TABLET NG SCH ×3 (11:36→17:24)
[2016-12-28] MEDS ORDERED: ROCURONIUM BROMIDE INJ 50 MG/5 ML VIAL IV ONE (12:39)
[2016-12-28] MEDS ORDERED: LIDOCAINE 2% INJ-PF (20 MG/ML) 10 ML AMPUL ONE (12:39)
[2016-12-28] MEDS ORDERED: ONDANSETRON HCL INJ/PF 4 MG/2 ML SDV ONE (12:39)
[2016-12-28] MEDS ORDERED: METOCLOPRAMIDE HCL INJ/PF 10 MG/2 ML SDV ONE (12:39)
[2016-12-28] MEDS ORDERED: PROPOFOL INJ 200 MG/20 ML VIAL IV ONE (16:21)
[2016-12-28] MEDS ORDERED: ACETAMINOPHEN 100 ML IV ONE (16:22)
[2016-12-28] MEDS ORDERED: MORPHINE SULFATE 10 MG/ML INJ ONE (16:22)
[2016-12-28 16:23] LABS: ABSOLUTE EOSINOPHILS # (AUTO) 0.4 10^3/uL (0.0-0.6); ABSOLUTE LYMPHOCYTES (AUTO) 0.8 10^3/uL (0.5-4.7); ABSOLUTE MONOCYTES (AUTO) 0.4 10^3/uL (0.1-1.4); ABSOLUTE NEUT (AUTO) 3.7 10^3/uL (1.7-8.2); BASOPHILS % (AUTO) 0.8 % (0-2); EOSINOPHILS % (AUTO) 6.8 % (0-6); HEMATOCRIT 25.8 % (36.0-47.0); HEMOGLOBIN 8.2 g/dL (12.0-15.5); HGB HCT DIFFERENCE -1.2; LYMPHOCYTES % (AUTO) 15.1 % (13-45); MEAN CORPUSCULAR HEMOGLOBIN 27.6 pg (27.0-33.4); MEAN CORPUSCULAR HGB CONC 31.7 g/dL (32.0-36.0); MEAN CORPUSCULAR VOLUME 87 fl (80-97); MONOCYTES % (AUTO) 7.9 % (3-13); RED BLOOD COUNT 2.97 10^6/uL (3.72-5.28); RED CELL DISTRIBUTION WIDTH 14.1 % (11.5-14.0); SEGMENTED NEUTROPHILS % (AUTO) 69.4 % (42-78); WHITE BLOOD COUNT 5.3 10^3/uL (4.0-10.5)
--- NOTE | 2016-12-28 17:55 | PDOC PROGRESS REPORT ---
Subjective Progress Note for:: 12/28/16 Subjective:: No acute events overnight. Patient mildly hypotensive this morning and was given 1 L normal saline bolus with good response. Unable to obtain review of systems from patient secondary to intubated and sedated status. Physical Exam Vital Signs: Temp Pulse Resp BP Pulse Ox 97.5 F 87 12 77/54 L 95 12/28/16 06:00 12/28/16 01:56 12/28/16 06:01 12/28/16 06:01 12/28/16 06:01 Intake & Output 12/27/16 12/28/16 12/29/16 06:59 06:59 06:59 Intake Total 3101 2224 Output Total 3830 0230 Balance -029 -831 Weight 107.2 kg 107.2 kg Exam: General: Awake, tracks, intubated HEENT: AT/NC, PERRL, EOMI, oropharynx is moist, pink, no scleral icterus, no conjunctival injection, ET and NG in place Neck: No JVD, trachea midline Chest: Diminished bases, otherwise clear CV: Regular rate and rhythm, normal S1 and S2, no murmur, rub, or gallop Abdomen: Soft, nontender to palpation, nondistended, active bowel sounds; no rebound, rigidity, or guarding Extremities: No cyanosis, clubbing or edema, left lower extremity in splint Results Laboratory Results: 12/28/16 05:30 12/28/16 05:30 12/28/16 12/28/16 12/28/16 05:30 05:30 05:30 WBC 5.4 RBC 3.04 L Hgb 8.5 L Hct 26.5 L MCV 87 MCH 28.1 MCHC 32.2 RDW 14.2 H Plt Count 278 Seg Neutrophils % 69.0 Lymphocytes % 15.5 Monocytes % 7.5 Eosinophils % 7.5 H Basophils % 0.5 Absolute Neutrophils 3.7 Absolute Lymphocytes 0.8 Absolute Monocytes 0.4 Absolute Eosinophils 0.4 Absolute Basophils 0.0 Carbonic Acid 1.47 H HCO3/H2CO3 Ratio 19:1 ABG pH 7.39 ABG pCO2 49.0 H ABG pO2 70.5 L ABG HCO3 28.9 H ABG O2 Saturation 93.8 L ABG Base Excess 3.2 FiO2 30% Sodium 140.7 Potassium 3.9 Chloride 105 Carbon Dioxide 29 Anion Gap 7 BUN 6 L Creatinine 0.61 Est GFR ( Amer) > 60 Est GFR (Non-Af Amer) > 60 Glucose 94 Calcium 9.1 Total Bilirubin 0.7 AST 99 H ALT 80 H Alkaline Phosphatase 105 Total Protein 6.0 L Albumin 2.6 L 12/23/16 06:19 Blood Blood Culture - Final NO GROWTH IN 5 DAYS 12/24/16 15:45 Sputum Gram Stain - Final 12/24/16 15:45 Sputum Sputum Culture - Final NO GROWTH 3 DAYS Impressions: Ankle X-Ray 12/22/16 13:45 IMPRESSION: Left ankle fracture dislocation with disruption of the ankle mortise and distal tibiofibular joint Chest/Abdomen CTA 12/22/16 16:25 IMPRESSION: Diffuse parenchymal opacities throughout both lungs. Poor bolus. Cannot evaluate for pulmonary emboli. KUB X-Ray 12/25/16 00:00 IMPRESSION: NO RADIOGRAPHIC EVIDENCE FOR ACUTE ABDOMINAL DISEASE. LARGE CALCIFICATION IN THE PELVIS, POSSIBLY CALCIFIED UTERINE FIBROID. CANNOT EXCLUDE OTHER ETIOLOGY. CT MAY BE CONSIDERED. Chest X-Ray 12/28/16 06:00 IMPRESSION: STABLE LINES AND TUBES. SLIGHT IMPROVED APPEARANCE OF THE CHEST. Assessment & Plan - Diagnosis (1) Acute respiratory failure Qualifiers: Respiratory failure complication: hypoxia and hypercapnia Qualified Code(s): J96.01 - Acute respiratory failure with hypoxia Is this a current diagnosis for this admission?: YesPlan: Continue intubation. Plan aggressive extubation measures beginning tomorrow. (2) Pneumonia Qualifiers: Pneumonia type: due to Haemophilus influenzae Laterality: bilateral Lung location: unspecified part of lung Qualified Code(s): J14 - Pneumonia due to Hemophilus influenzae Is this a current diagnosis for this admission?: YesPlan: Patient currently with bilateral bibasilar pneumonia growing Haemophilus influenza, community-acquired with no special features. Patient currently on scheduled nebulized treatments. Patient currently on Levaquin day #03/31. (3) Hypokalemia Is this a current diagnosis for this admission?: Yes (4) Compensated respiratory acidosis Is this a current diagnosis for this admission?: Yes (5) Acute blood loss anemia Is this a current diagnosis for this admission?: YesPlan: Patient currently anemic at baseline due to iron deficiency anemia and now with acute blood loss due to fracture. Continue iron repletion. Transfuse if hemoglobin drops below 8. Recheck H&H in the a.m. (6) Fracture dislocation of left ankle Is this a current diagnosis for this admission?: YesPlan: Patient to go to surgery today. Appreciate orthopedics input. (7) Morbid obesity with BMI of 40.0-44.9, adult Is this a current diagnosis for this admission?: Yes (8) History of traumatic brain injury Is this a current diagnosis for this admission?: YesPlan: Patient had TBI as an leading to her currently cognitively declined status. Patient has a currently a full code and her mother is her surrogate decision maker. Have readdressed patient's CODE STATUS with her mother. 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
--- NOTE | 2016-12-28 19:10 | Brief Operative Note ---
BRIEF OPERATIVE REPORT DATE OF SURGERY: 12/28/16 TIME OF SURGERY: 15:30 PREOPERATIVE DIAGNOSIS: Left ankle fracture dislocation with syndesmotic injury POSTOPERATIVE DIAGNOSIS: Same SURGEON: VIRGINIA ALMARAZ FINDINGS: As above COMPLICATIONS: None ESTIMATED BLOOD LOSS: 10 mL TISSUE REMOVED OR ALTERED: None TECHNICAL PROCEDURE: Open reduction internal fixation of left ankle fracture/ dislocation with syndesmotic repair
[2016-12-28] MEDS ORDERED: NORMAL SALINE 1000 ML 1,000 ML IV PRN (20:31)
[2016-12-28] MEDS: MIRTAZAPINE 15 MG TABLET NG SCH (21:55)
[2016-12-28] MEDS: NORMAL SALINE 1000 ML 1,000 ML IV PRN (21:57)
[2016-12-29] MEDS: PROPOFOL 100 ML IV PRN ×7 (00:48→22:03)
[2016-12-29] MEDS: GUAIFENESIN SYRP 200 MG/10 ML UDC NG SCH ×6 (01:21→22:03)
[2016-12-29] MEDS: IPRATROPIUM/ALBUTEROL 0.5-2.5 MG/3 ML AMPUL NEB SCH ×4 (02:10→20:57)
[2016-12-29] MEDS: OXYCODONE-ACETAMINOPHEN 5-325 MG TABLET PO PRN ×2 (03:13→10:35)
[2016-12-29] MEDS: NORMAL SALINE 1000 ML 1,000 ML IV PRN (05:56)
[2016-12-29 05:58] LABS: ABSOLUTE EOSINOPHILS # (AUTO) 0.4 10^3/uL (0.0-0.6); ABSOLUTE LYMPHOCYTES (AUTO) 0.8 10^3/uL (0.5-4.7); ABSOLUTE MONOCYTES (AUTO) 0.5 10^3/uL (0.1-1.4); ABSOLUTE NEUT (AUTO) 4.3 10^3/uL (1.7-8.2); BASOPHILS % (AUTO) 0.3 % (0-2); EOSINOPHILS % (AUTO) 6.6 % (0-6); LYMPHOCYTES % (AUTO) 13.2 % (13-45); MEAN CORPUSCULAR HEMOGLOBIN 28.1 pg (27.0-33.4); MEAN CORPUSCULAR HGB CONC 32.1 g/dL (32.0-36.0); MEAN CORPUSCULAR VOLUME 87 fl (80-97); MONOCYTES % (AUTO) 8.6 % (3-13); RED BLOOD COUNT 2.87 10^6/uL (3.72-5.28); RED CELL DISTRIBUTION WIDTH 14.4 % (11.5-14.0); SEGMENTED NEUTROPHILS % (AUTO) 71.3 % (42-78)
[2016-12-29 06:00] LABS: ARTERIAL BLOOD BASE EXCESS 0 mmol/L; ARTERIAL BLOOD O2 SATURATION 92.4 % (94-98)
[2016-12-29 06:06] LABS: PARTIAL THROMBOPLASTIN TIME 38.9 SEC (23.5-35.8)
[2016-12-29 06:19] LABS: ALANINE AMINOTRANSFERASE 89 U/L (9-52); ALBUMIN 2.5 g/dL (3.5-5.0); ALKALINE PHOSPHATASE 91 U/L (38-126); ANION GAP 8 (5-19); ASPARTATE AMINO TRANSFERASE 116 U/L (14-36); BILIRUBIN,TOTAL 0.6 mg/dL (0.2-1.3); BLOOD UREA NITROGEN 5 mg/dL (7-20); CALCIUM 8.5 mg/dL (8.4-10.2); CARBON DIOXIDE 30 mmol/L (22-30); CHLORIDE 104 mmol/L (98-107); CREATININE RESULT 0.64 mg/dL (0.52-1.25); GLUCOSE 75 mg/dL (75-110); MAGNESIUM 1.8 mg/dL (1.6-2.3); POTASSIUM 3.7 mmol/L (3.6-5.0); TOTAL PROTEIN 5.7 g/dL (6.3-8.2); TRIGLYCERIDES 256 mg/dL (<150)
[2016-12-29] MEDS: ACETYLCYSTEINE 20% SOLN 800 MG/4 ML VIAL.NEB NEB SCH ×2 (07:52→20:56)
[2016-12-29] MEDS: FENTANYL CITRATE INJ/PF 100 MCG/2 ML AMPUL IV PRN ×2 (07:58→13:14)
[2016-12-29] MEDS: METOCLOPRAMIDE HCL INJ/PF 10 MG/2 ML SDV IV SCH ×4 (07:59→22:03)
[2016-12-29] MEDS: AMLODIPINE BESYLATE 5 MG TABLET NG SCH (10:35)
[2016-12-29] MEDS: ENOXAPARIN SODIUM INJ 40 MG/0.4 ML DISP.SYRIN SUBCUT SCH (10:36)
[2016-12-29] MEDS: LEVOFLOXACIN 750 MG/D5W RTU 150 ML IV SCH (10:37)
[2016-12-29] MEDS: LEVOTHYROXINE SODIUM 0.025 MG TABLET NG SCH (10:38)
[2016-12-29] MEDS: NYSTATIN TOPICAL POWDER 15 GM TP SCH ×2 (10:38→18:51)
[2016-12-29] MEDS: MAGNESIUM OXIDE 400 MG TABLET NG SCH ×3 (10:38→18:51)
--- NOTE | 2016-12-29 15:25 | Operative Report ---
Operative Report DATE OF SURGERY: 12/28/16 PREOPERATIVE DIAGNOSIS: Left ankle fracture dislocation with syndesmotic injury POSTOPERATIVE DIAGNOSIS: Same OPERATION: Open reduction internal fixation of left ankle fracture/dislocation with syndesmotic repair SURGEON: VIRGINIA ALMARAZ ANESTHESIA: GA TISSUE REMOVED OR ALTERED: None COMPLICATIONS: none ESTIMATED BLOOD LOSS: 10 mL INTRAOPERATIVE FINDINGS: As above PROCEDURE: Patient was brought from the ER where she was already intubated and sedated. Patient already had received IV antibiotics in the ER. Consent had been obtained of couple days ago from family members. The left thigh tourniquet was applied and the left lower extremity was prepped and draped in a normal surgical fashion. Timeout was done identifying the left ankle as the correct site. X-rays showed pain in the left ankle as well. Equipment and rep was present. Esmarch was used to exsanguinate the extremity and the tourniquet was inflated at 300 mmHg. 15 scalpel was used to do a longitudinal incision of the lateral aspect of the leg right over the fibular fracture. After skin incision and subcutaneous dissection Metzenbaum scissors were used to spread the tissue and the do a small cut and the fascia. I was able to expose the fibular fracture site and dissected proximal and distally. I used a periosteal elevator to clean the fracture site edges. I was able to used a lobster claw to obtain my reduction. C-arm x-ray was used to confirm our reduction. I used a 10 hole plate and the x-rayed over the leg confirming proper length and placement. I made sure I was distal enough to place my syndesmotic screws. I clamped the plate onto the fibula and reduced my fibular one more time and shaped to place 2 screws. One was proximal one was distal the 2 screws compressed the plate and held the reduction and I was able to release the clamp. At this point I proceeded to do my remaining screws proximally and distally placing 3 proximal and 3 distal to the fracture site. My last 2 holes were used for my syndesmotic screws were drilled from the fibula awl into the tibia doing 4 cortices total. I measured and placed to the proper length screws. Prior to drilling and placing my syndesmotic screws I did use a periarticular clamp to reduce the syndesmosis and clear space. I taken x-rays to confirm reduction and then drilled and placed my syndesmotic screws as above. AP mortise and lateral axis of taking showing proper reduction and fixation and placement of our plate and screws. Joint was well reduced and medial clear space was under 4 mm. I also noted that the posterior malleolus fracture was too small for fixation and was left alone. At this point irrigation was used and then I proceeded to close the fascial layer over the peroneal longus and brevis. I was able to cover most of the plate. Subcutaneous layer was closed with a 0 Vicryl and 3-0 Vicryl was used for the dermis. Nila were used for the skin. Xeroform followed by 4 x 4 dressing and a Sof-Rol was applied and then the tourniquet was let down after 54 minutes. I overwrapped the extremity from the calf Janak down to the toes and applied a short leg splint. At this point gauge were removed and then the patient was then transferred in stable condition still intubated back to the ER which is soft to chamfer the ICU for the short period time. Instructed to keep the extremity elevated with several pillows and keep it above the heart level. We'll transfer care to ICU. Orthopedic instructions are to keep the extremity elevated and the patient to be nonweightbearing. Splint will stay on until wound check in 10-14 days postop.
--- NOTE | 2016-12-29 15:28 | PDOC PROGRESS REPORT ---
Subjective Progress Note for:: 12/29/16 Subjective:: Patient is still intubated but response to stimulus. She was able to move spontaneously her left lower extremity after stimulating her toes. Splint is dry clean and intact Physical Exam Vital Signs: Temp Pulse Resp BP Pulse Ox 38.2 C H 119 H 21 H 115/74 95 12/29/16 12:00 12/29/16 14:00 12/29/16 14:00 12/29/16 12:00 12/29/16 14:00 Intake & Output 12/28/16 12/29/16 12/30/16 06:59 06:59 06:59 Intake Total 2224 4704 Output Total 3140 2200 425 Balance -916 2504 -425 Weight 107.2 kg 110.9 kg General appearance: PRESENT: no acute distress Adult Front & Back Image: 1 - Splint is dry clean and intact. Positive swelling distally as expected postoperatively. Warm skin with good capillary refill. She wiggles her toes and withdrew after stimulating her toes to light touch. Results Laboratory Results: 12/29/16 05:30 12/29/16 05:30 12/28/16 12/29/16 12/29/16 16:05 05:30 05:30 WBC 5.3 6.0 RBC 2.97 L 2.87 L Hgb 8.2 L 8.0 L Hct 25.8 L 25.0 L MCV 87 87 MCH 27.6 28.1 MCHC 31.7 L 32.1 RDW 14.1 H 14.4 H Plt Count 262 267 Seg Neutrophils % 69.4 71.3 Lymphocytes % 15.1 13.2 Monocytes % 7.9 8.6 Eosinophils % 6.8 H 6.6 H Basophils % 0.8 0.3 Absolute Neutrophils 3.7 4.3 Absolute Lymphocytes 0.8 0.8 Absolute Monocytes 0.4 0.5 Absolute Eosinophils 0.4 0.4 Absolute Basophils 0.0 0.0 Carbonic Acid 1.57 H HCO3/H2CO3 Ratio 16:1 ABG pH 7.32 L ABG pCO2 52.3 H ABG pO2 69.2 L ABG HCO3 26.6 H ABG O2 Saturation 92.4 L ABG Base Excess 0 FiO2 40% Sodium Potassium Chloride Carbon Dioxide Anion Gap BUN Creatinine Est GFR ( Amer) Est GFR (Non-Af Amer) Glucose Calcium Magnesium Total Bilirubin AST ALT Alkaline Phosphatase Total Protein Albumin Triglycerides 12/29/16 05:30 WBC RBC Hgb Hct MCV MCH MCHC RDW Plt Count Seg Neutrophils % Lymphocytes % Monocytes % Eosinophils % Basophils % Absolute Neutrophils Absolute Lymphocytes Absolute Monocytes Absolute Eosinophils Absolute Basophils Carbonic Acid HCO3/H2CO3 Ratio ABG pH ABG pCO2 ABG pO2 ABG HCO3 ABG O2 Saturation ABG Base Excess FiO2 Sodium 142.0 Potassium 3.7 Chloride 104 Carbon Dioxide 30 Anion Gap 8 BUN 5 L Creatinine 0.64 Est GFR ( Amer) > 60 Est GFR (Non-Af Amer) > 60 Glucose 75 Calcium 8.5 Magnesium 1.8 Total Bilirubin 0.6 AST 116 H ALT 89 H Alkaline Phosphatase 91 Total Protein 5.7 L Albumin 2.5 L Triglycerides 256 H Impressions: Chest/Abdomen CTA 12/22/16 16:25 IMPRESSION: Diffuse parenchymal opacities throughout both lungs. Poor bolus. Cannot evaluate for pulmonary emboli. KUB X-Ray 12/25/16 00:00 IMPRESSION: NO RADIOGRAPHIC EVIDENCE FOR ACUTE ABDOMINAL DISEASE. LARGE CALCIFICATION IN THE PELVIS, POSSIBLY CALCIFIED UTERINE FIBROID. CANNOT EXCLUDE OTHER ETIOLOGY. CT MAY BE CONSIDERED. Ankle X-Ray 12/28/16 00:00 IMPRESSION: IMAGE(S) OBTAINED DURING PROCEDURE. Fluoroscopy 12/28/16 00:00 IMPRESSION: IMAGE(S) OBTAINED DURING PROCEDURE. Chest X-Ray 12/29/16 06:00 IMPRESSION: The previously described bibasilar densities appear slightly more confluent on the current study. Other findings as noted above. Assessment & Plan - Diagnosis (1) Fracture dislocation of left ankle Is this a current diagnosis for this admission?: Yes (2) Ankle syndesmosis disruption Qualifiers: Encounter type: subsequent encounter Laterality: left Qualified Code(s): S93.432D - Sprain of tibiofibular ligament of left ankle, subsequent encounter Is this a current diagnosis for this admission?: Yes - Plan Summary Plan Summary: Patient still intubated. Defer care to primary team. Pertaining to the left lower extremity I wanted to be nonweightbearing and ice and elevate the extremity above the heart. Keep the splint dry clean and intact.
[2016-12-29] MEDS: DEXTROSE 5%-1/2 NORMAL SALINE 1,000 ML IV PRN (16:35)
--- NOTE | 2016-12-29 19:04 | PDOC PROGRESS REPORT ---
Subjective Progress Note for:: 12/29/16 Subjective:: No issues reported. Patient was noted to be hypoxic during pressure support ventilation trials yesterday. Review of systems cannot be obtained secondary to sedated/intubated state. Physical Exam Vital Signs: Temp Pulse Resp BP Pulse Ox 99.9 F 125 H 0 L 122/65 94 12/29/16 16:00 12/29/16 16:00 12/29/16 17:30 12/29/16 17:00 12/29/16 17:30 Intake & Output 12/28/16 12/29/16 12/30/16 06:59 06:59 06:59 Intake Total 2224 4704 1238 Output Total 3140 2200 725 Balance -916 2504 513 Weight 107.2 kg 110.9 kg GENERAL: No acute distress, sedated/intubated HEENT: Conjunctiva clear, nonicteric, moist mucous membranes, no JVD, endotracheal tube in place, trachea midline RESPIRATORY: Clear to auscultation bilaterally, no wheezes, no rhonchi CARDIAC: Regular rate and rhythm, no murmurs/gallops/rubs ABDOMEN: Soft, nondistended, nontender, positive bowel sounds, no rebound, no guarding EXTREMETIES: No edema, cyanosis, clubbing NEUROLOGIC: Sedated SKIN: No rash, wounds MUSCULOSKELETAL: Splint to left ankle Results Laboratory Results: 12/29/16 05:30 12/29/16 05:30 12/29/16 12/29/16 12/29/16 05:30 05:30 05:30 WBC 6.0 RBC 2.87 L Hgb 8.0 L Hct 25.0 L MCV 87 MCH 28.1 MCHC 32.1 RDW 14.4 H Plt Count 267 Seg Neutrophils % 71.3 Lymphocytes % 13.2 Monocytes % 8.6 Eosinophils % 6.6 H Basophils % 0.3 Absolute Neutrophils 4.3 Absolute Lymphocytes 0.8 Absolute Monocytes 0.5 Absolute Eosinophils 0.4 Absolute Basophils 0.0 Carbonic Acid 1.57 H HCO3/H2CO3 Ratio 16:1 ABG pH 7.32 L ABG pCO2 52.3 H ABG pO2 69.2 L ABG HCO3 26.6 H ABG O2 Saturation 92.4 L ABG Base Excess 0 FiO2 40% Sodium 142.0 Potassium 3.7 Chloride 104 Carbon Dioxide 30 Anion Gap 8 BUN 5 L Creatinine 0.64 Est GFR ( Amer) > 60 Est GFR (Non-Af Amer) > 60 Glucose 75 Calcium 8.5 Magnesium 1.8 Total Bilirubin 0.6 AST 116 H ALT 89 H Alkaline Phosphatase 91 Total Protein 5.7 L Albumin 2.5 L Triglycerides 256 H Impressions: Chest/Abdomen CTA 12/22/16 16:25 IMPRESSION: Diffuse parenchymal opacities throughout both lungs. Poor bolus. Cannot evaluate for pulmonary emboli. KUB X-Ray 12/25/16 00:00 IMPRESSION: NO RADIOGRAPHIC EVIDENCE FOR ACUTE ABDOMINAL DISEASE. LARGE CALCIFICATION IN THE PELVIS, POSSIBLY CALCIFIED UTERINE FIBROID. CANNOT EXCLUDE OTHER ETIOLOGY. CT MAY BE CONSIDERED. Ankle X-Ray 12/28/16 00:00 IMPRESSION: IMAGE(S) OBTAINED DURING PROCEDURE. Fluoroscopy 12/28/16 00:00 IMPRESSION: IMAGE(S) OBTAINED DURING PROCEDURE. Chest X-Ray 12/29/16 06:00 IMPRESSION: The previously described bibasilar densities appear slightly more confluent on the current study. Other findings as noted above. Assessment & Plan - Diagnosis (1) Acute respiratory failure Qualifiers: Respiratory failure complication: hypoxia and hypercapnia Qualified Code(s): J96.01 - Acute respiratory failure with hypoxia Is this a current diagnosis for this admission?: YesPlan: Continue mechanical ventilation. Pressure support trials daily. (2) Fracture dislocation of left ankle Is this a current diagnosis for this admission?: YesPlan: Patient is status post ORIF on 12/28/[address] Mchugh of orthopedics. She is to be nonweightbearing. (3) Acute blood loss anemia Is this a current diagnosis for this admission?: YesPlan: Hemoglobin low but stable. Continue to monitor. Gastric occult was positive. Consult GI. Start iron supplementation. (4) History of traumatic brain injury Is this a current diagnosis for this admission?: Yes (5) Hypokalemia Is this a current diagnosis for this admission?: YesPlan: Corrected. (6) Pneumonia Qualifiers: Pneumonia type: due to Haemophilus influenzae Laterality: bilateral Lung location: unspecified part of lung Qualified Code(s): J14 - Pneumonia due to Hemophilus influenzae Is this a current diagnosis for this admission?: YesPlan: Continue IV Levaquin. Sputum culture growing Haemophilus influenza. (7) Hypertension Qualifiers: Hypertension type: essential hypertension Qualified Code(s): I10 - Essential (primary) hypertension Is this a current diagnosis for this admission?: YesPlan: Blood pressure is low. Decrease Norvasc to 5 mg daily. - Time Critical Time spent with patient: 35 or more minutes
--- NOTE | 2016-12-29 20:08 | PDOC CONSULTATION ---
Consultation Consult Date: 12/29/16 Attending physician:: PIETER MARSHALL Consult reason:: gastrocult positive stools. chronic anemia History of Present Illness Admission Date/PCP: 12/23/16 00:51 History of Present Illness: I was asked to see this patient by Dr. Lindsay Patient was originally admitted about a week ago patient does have a history of traumatic brain injury with subsequent developmental delay. She had an ankle fracture that required orthopedics to perform open reduction and fixation. She has shortness of breath in the emergency room and has subsequently been intubated. Weaning trials not been as successful she remains intubated. She was noted to have anemia. Her gastric contents were noted to be Hemoccult positive. I been asked to see this patient from the GI standpoint. She is sedated she is able to respond to stimuli. She has a splint to the left ankle. Not able to obtain complete review of systems. Hemoglobin has been relatively stable. She does appear to have chronic anemia. She was started on some iron due to anemia. I'm asked to see the patient to see if upper endoscopy can be done. Past Medical History Cardiac Medical History: Reports: Hypertension Endocrine Medical History: Reports: Hypothyroidism Psychiatric Medical History: Denies: Depression Past Surgical History Past Surgical History: Reports: Orthopedic Surgery - left jae fracture, requiring open reduction and fixation Social History Lives with: Family Smoking Status: Never Smoker Frequency of Alcohol Use: None Hx Recreational Drug Use: No Drugs: None Hx Prescription Drug Abuse: No - Advance Directive Resuscitation Status: Full Code Family History Family History: Reviewed & Not Pertinent Parental Family History Reviewed: Yes Children Family History Reviewed: Unknown Sibling(s) Family History Reviewed.: Unknown Medication/Allergy Home Medications: Amlodipine Besylate [Norvasc 5 mg Tablet] 5 mg PO DAILY 12/23/16 Atorvastatin Calcium [Lipitor 10 mg Tablet] 10 mg PO QHS 12/23/16 Clotrimazole/Betamethasone Dip [Clotrimazole-Betamethasone Crm] 1 applic TOP BID 12/23/16 Docusate Sodium [Colace 100 mg Capsule] 100 mg PO DAILYP PRN 12/23/16 Hydroxyzine HCl [Atarax 25 mg Tablet] 25 mg PO HSP PRN 12/23/16 Levothyroxine Sodium [Synthroid 0.025 mg Tablet] 0.025 mg PO DAILY 12/23/16 Lisinopril [Prinivil 5 mg Tablet] 5 mg PO DAILY 12/23/16 Mirtazapine [Remeron 15 mg Tablet] 15 mg PO QHS 12/23/16 Potassium Chloride [Klor-Con 10 Meq Tablet.sa] 10 meq PO BID 12/23/16 Allergies/Adverse Reactions: No Known Allergies Allergy (Verified 08/27/12 09:50) Review of Systems ROS unobtainable: Due to endotracheal tube Physical Exam Vital Signs: Temp Pulse Resp BP Pulse Ox 99.9 F 125 H 0 L 122/65 94 12/29/16 16:00 12/29/16 16:00 12/29/16 17:30 12/29/16 17:00 12/29/16 17:30 Intake & Output 12/28/16 12/29/16 12/30/16 06:59 06:59 06:59 Intake Total 2224 4704 1238 Output Total 3140 2200 725 Balance -916 2504 513 Weight 107.2 kg 110.9 kg Exam: Patient is sedated and intubated with vent tube in place Head exam: PRESENT: atraumatic Eye exam: ABSENT: nystagmus, periorbital swelling, scleral icterus Neck exam: ABSENT: thyromegaly Respiratory exam: PRESENT: clear to auscultation patrick, symmetrical. ABSENT: wheezes Cardiovascular exam: PRESENT: RRR, +S1, +S2 Pulses: PRESENT: normal carotid pulses Vascular exam: PRESENT: normal capillary refill GI/Abdominal exam: PRESENT: hypoactive bowel sounds. ABSENT: Pickard's sign, rebound, rigid, tenderness Rectal exam: PRESENT: deferred Extremities exam: PRESENT: +1 edema. ABSENT: clubbing Musculoskeletal exam: PRESENT: normal inspection Skin exam: ABSENT: jaundice, mottled, petechiae, urticaria, vesicles Results Laboratory Results: 12/29/16 05:30 12/29/16 05:30 12/29/16 12/29/16 12/29/16 05:30 05:30 05:30 WBC 6.0 RBC 2.87 L Hgb 8.0 L Hct 25.0 L MCV 87 MCH 28.1 MCHC 32.1 RDW 14.4 H Plt Count 267 Seg Neutrophils % 71.3 Lymphocytes % 13.2 Monocytes % 8.6 Eosinophils % 6.6 H Basophils % 0.3 Absolute Neutrophils 4.3 Absolute Lymphocytes 0.8 Absolute Monocytes 0.5 Absolute Eosinophils 0.4 Absolute Basophils 0.0 Carbonic Acid 1.57 H HCO3/H2CO3 Ratio 16:1 ABG pH 7.32 L ABG pCO2 52.3 H ABG pO2 69.2 L ABG HCO3 26.6 H ABG O2 Saturation 92.4 L ABG Base Excess 0 FiO2 40% Sodium 142.0 Potassium 3.7 Chloride 104 Carbon Dioxide 30 Anion Gap 8 BUN 5 L Creatinine 0.64 Est GFR ( Amer) > 60 Est GFR (Non-Af Amer) > 60 Glucose 75 Calcium 8.5 Magnesium 1.8 Total Bilirubin 0.6 AST 116 H ALT 89 H Alkaline Phosphatase 91 Total Protein 5.7 L Albumin 2.5 L Triglycerides 256 H Impressions: Chest/Abdomen CTA 12/22/16 16:25 IMPRESSION: Diffuse parenchymal opacities throughout both lungs. Poor bolus. Cannot evaluate for pulmonary emboli. KUB X-Ray 12/25/16 00:00 IMPRESSION: NO RADIOGRAPHIC EVIDENCE FOR ACUTE ABDOMINAL DISEASE. LARGE CALCIFICATION IN THE PELVIS, POSSIBLY CALCIFIED UTERINE FIBROID. CANNOT EXCLUDE OTHER ETIOLOGY. CT MAY BE CONSIDERED. Ankle X-Ray 12/28/16 00:00 IMPRESSION: IMAGE(S) OBTAINED DURING PROCEDURE. Fluoroscopy 12/28/16 00:00 IMPRESSION: IMAGE(S) OBTAINED DURING PROCEDURE. Chest X-Ray 12/29/16 06:00 IMPRESSION: The previously described bibasilar densities appear slightly more confluent on the current study. Other findings as noted above. Assessment & Plan - Diagnosis (1) Acute blood loss anemia Is this a current diagnosis for this admission?: YesPlan: Hemoglobin has been stable. However patient does have gastric secretions that are heme positive otherwise no acute bleeding is noted transfuse as necessary start PPI for now may need EGD if has significant drop of her Hgb likely having stress gastritis, no melena is noted. if patient is still intubated and sedated, may be worthwhile to perform EGD will try to get consent, if will be able to proceed tomorrow or . further recommendations to follow - Time Time Spent: 50 to 70 Minutes
[2016-12-29] MEDS: PANTOPRAZOLE SODIUM 40 MG VIAL IV SCH (22:03)
[2016-12-29] MEDS: MIRTAZAPINE 15 MG TABLET NG SCH (22:04)
[2016-12-30] MEDS: PROPOFOL 100 ML IV PRN ×9 (00:40→22:51)
[2016-12-30] MEDS: GUAIFENESIN SYRP 200 MG/10 ML UDC NG SCH ×6 (02:11→22:52)
[2016-12-30] MEDS: IPRATROPIUM/ALBUTEROL 0.5-2.5 MG/3 ML AMPUL NEB SCH ×4 (02:12→19:52)
[2016-12-30 05:08] LABS: ABSOLUTE EOSINOPHILS # (AUTO) 0.4 10^3/uL (0.0-0.6); ABSOLUTE LYMPHOCYTES (AUTO) 0.7 10^3/uL (0.5-4.7); ABSOLUTE MONOCYTES (AUTO) 0.6 10^3/uL (0.1-1.4); ABSOLUTE NEUT (AUTO) 4.5 10^3/uL (1.7-8.2); BASOPHILS % (AUTO) 0.3 % (0-2); EOSINOPHILS % (AUTO) 6.4 % (0-6); HEMATOCRIT 24.2 % (36.0-47.0); HGB HCT DIFFERENCE -0.5; LYMPHOCYTES % (AUTO) 11.6 % (13-45); MEAN CORPUSCULAR HEMOGLOBIN 28.4 pg (27.0-33.4); MEAN CORPUSCULAR HGB CONC 32.5 g/dL (32.0-36.0); MEAN CORPUSCULAR VOLUME 87 fl (80-97); MONOCYTES % (AUTO) 9.5 % (3-13); RED BLOOD COUNT 2.78 10^6/uL (3.72-5.28); SEGMENTED NEUTROPHILS % (AUTO) 72.2 % (42-78); WHITE BLOOD COUNT 6.2 10^3/uL (4.0-10.5)
[2016-12-30 05:14] LABS: PROTHROMBIN TIME 13.8 SEC (11.4-15.4)
[2016-12-30 05:15] LABS: ARTERIAL BLOOD O2 SATURATION 92.7 % (94-98); PARTIAL THROMBOPLASTIN TIME 42.4 SEC (23.5-35.8)
[2016-12-30 05:19] LABS: HEMOGLOBIN 7.9 g/dL (12.0-15.5)
[2016-12-30 05:26] LABS: ALANINE AMINOTRANSFERASE 79 U/L (9-52); ALBUMIN 2.4 g/dL (3.5-5.0); ALKALINE PHOSPHATASE 91 U/L (38-126); ANION GAP 7 (5-19); ASPARTATE AMINO TRANSFERASE 88 U/L (14-36); BILIRUBIN,TOTAL 0.7 mg/dL (0.2-1.3); BLOOD UREA NITROGEN 6 mg/dL (7-20); CALCIUM 8.6 mg/dL (8.4-10.2); CARBON DIOXIDE 30 mmol/L (22-30); CHLORIDE 103 mmol/L (98-107); CREATININE RESULT 0.62 mg/dL (0.52-1.25); GLUCOSE 90 mg/dL (75-110); POTASSIUM 3.6 mmol/L (3.6-5.0); SODIUM 140.1 mmol/L (137-145); TOTAL PROTEIN 5.6 g/dL (6.3-8.2)
[2016-12-30] MEDS ORDERED: FUROSEMIDE INJ/PF 20 MG/2 ML SDV IV PRN (07:49)
[2016-12-30] MEDS ORDERED: NORMAL SALINE 250 ML IV PRN ×2 (07:49)
[2016-12-30] MEDS: ACETYLCYSTEINE 20% SOLN 800 MG/4 ML VIAL.NEB NEB SCH ×2 (07:50→19:52)
[2016-12-30] MEDS: MAGNESIUM OXIDE 400 MG TABLET NG SCH ×3 (11:10→18:34)
[2016-12-30] MEDS: AMLODIPINE BESYLATE 5 MG TABLET NG SCH (11:10)
[2016-12-30] MEDS: PANTOPRAZOLE SODIUM 40 MG VIAL IV SCH ×2 (11:10→22:52)
[2016-12-30] MEDS: OXYCODONE-ACETAMINOPHEN 5-325 MG TABLET PO PRN (11:11)
[2016-12-30] MEDS: LEVOTHYROXINE SODIUM 0.025 MG TABLET NG SCH (11:11)
[2016-12-30] MEDS: ENOXAPARIN SODIUM INJ 40 MG/0.4 ML DISP.SYRIN SUBCUT SCH (11:12)
[2016-12-30] MEDS: METOCLOPRAMIDE HCL INJ/PF 10 MG/2 ML SDV IV SCH ×4 (11:13→22:52)
[2016-12-30] MEDS: FERROUS SULFATE LIQUID 300 MG/5 ML UDC PO SCH ×2 (11:15→18:33)
--- NOTE | 2016-12-30 15:19 | PDOC PROGRESS REPORT ---
Subjective Progress Note for:: 12/30/16 Subjective:: Patient has had difficulty tolerating pressure support ventilation trials. PEEP was increased to 10 today to improve oxygenation. Review of systems cannot be obtained from patient secondary to sedated/intubated state. Physical Exam Vital Signs: Temp Pulse Resp BP Pulse Ox 100 F 121 H 19 127/70 H 94 12/30/16 14:49 12/30/16 14:49 12/30/16 14:49 12/30/16 15:00 12/30/16 15:01 Intake & Output 12/29/16 12/30/16 12/31/16 06:59 06:59 06:59 Intake Total 4709 9663 350 Output Total 5382 2323 7492 Balance 5850 -095 -917 Weight 110.9 kg 109 kg GENERAL: No acute distress, sedated/intubated HEENT: Conjunctiva clear, nonicteric, moist mucous membranes, no JVD, endotracheal tube in place, trachea midline RESPIRATORY: Clear to auscultation bilaterally, no wheezes, no rhonchi CARDIAC: Regular rate and rhythm, no murmurs/gallops/rubs ABDOMEN: Soft, nondistended, nontender, positive bowel sounds, no rebound, no guarding EXTREMETIES: No edema, cyanosis, clubbing NEUROLOGIC: Sedated SKIN: No rash, wounds MUSCULOSKELETAL: Splint to left ankle Results Laboratory Results: 12/30/16 04:50 12/30/16 04:50 12/30/16 12/30/16 12/30/16 04:50 04:50 04:50 WBC 6.2 RBC 2.78 L Hgb 7.9 L Hct 24.2 L MCV 87 MCH 28.4 MCHC 32.5 RDW 14.0 Plt Count 276 Seg Neutrophils % 72.2 Lymphocytes % 11.6 L Monocytes % 9.5 Eosinophils % 6.4 H Basophils % 0.3 Absolute Neutrophils 4.5 Absolute Lymphocytes 0.7 Absolute Monocytes 0.6 Absolute Eosinophils 0.4 Absolute Basophils 0.0 Carbonic Acid 1.62 H HCO3/H2CO3 Ratio 19:1 ABG pH 7.39 ABG pCO2 53.7 H ABG pO2 66.9 L ABG HCO3 31.6 H ABG O2 Saturation 92.7 L ABG Base Excess 6.0 FiO2 40% Sodium 140.1 Potassium 3.6 Chloride 103 Carbon Dioxide 30 Anion Gap 7 BUN 6 L Creatinine 0.62 Est GFR ( Amer) > 60 Est GFR (Non-Af Amer) > 60 Glucose 90 Calcium 8.6 Total Bilirubin 0.7 AST 88 H ALT 79 H Alkaline Phosphatase 91 Total Protein 5.6 L Albumin 2.4 L Blood Type Antibody Screen 12/30/16 08:53 WBC RBC Hgb Hct MCV MCH MCHC RDW Plt Count Seg Neutrophils % Lymphocytes % Monocytes % Eosinophils % Basophils % Absolute Neutrophils Absolute Lymphocytes Absolute Monocytes Absolute Eosinophils Absolute Basophils Carbonic Acid HCO3/H2CO3 Ratio ABG pH ABG pCO2 ABG pO2 ABG HCO3 ABG O2 Saturation ABG Base Excess FiO2 Sodium Potassium Chloride Carbon Dioxide Anion Gap BUN Creatinine Est GFR ( Amer) Est GFR (Non-Af Amer) Glucose Calcium Total Bilirubin AST ALT Alkaline Phosphatase Total Protein Albumin Blood Type A POSITIVE Antibody Screen NEGATIVE Impressions: Chest/Abdomen CTA 12/22/16 16:25 IMPRESSION: Diffuse parenchymal opacities throughout both lungs. Poor bolus. Cannot evaluate for pulmonary emboli. KUB X-Ray 12/25/16 00:00 IMPRESSION: NO RADIOGRAPHIC EVIDENCE FOR ACUTE ABDOMINAL DISEASE. LARGE CALCIFICATION IN THE PELVIS, POSSIBLY CALCIFIED UTERINE FIBROID. CANNOT EXCLUDE OTHER ETIOLOGY. CT MAY BE CONSIDERED. Ankle X-Ray 12/28/16 00:00 IMPRESSION: IMAGE(S) OBTAINED DURING PROCEDURE. Fluoroscopy 12/28/16 00:00 IMPRESSION: IMAGE(S) OBTAINED DURING PROCEDURE. Chest X-Ray 12/30/16 06:00 IMPRESSION: NO CHANGE IN APPEARANCE OF THE CHEST. Assessment & Plan - Diagnosis (1) Acute respiratory failure Qualifiers: Respiratory failure complication: hypoxia and hypercapnia Qualified Code(s): J96.01 - Acute respiratory failure with hypoxia Is this a current diagnosis for this admission?: YesPlan: Continue mechanical ventilation. Pressure support trials daily. (2) Acute diastolic CHF (congestive heart failure) Is this a current diagnosis for this admission?: YesPlan: Patient will be started on Lasix 20 mg IV every 12 hours. Repeat chest x-ray name. Echocardiogram performed this admission shows grade 2/4 diastolic dysfunction, EF normal, no hemodynamically significant valvular disease. (3) Fracture dislocation of left ankle Is this a current diagnosis for this admission?: YesPlan: Patient is status post ORIF on 12/28/[address] Mchugh of orthopedics. She is to be nonweightbearing. (4) Acute blood loss anemia Is this a current diagnosis for this admission?: YesPlan: Transfuse 2 units PRBC. Gastric occult was positive. Continue iron supplementation. (5) GI bleed Is this a current diagnosis for this admission?: YesPlan: Continue IV Protonix. GI consult appreciated. Dr. Mejia considering EGD. (6) History of traumatic brain injury Is this a current diagnosis for this admission?: Yes (7) Hypokalemia Is this a current diagnosis for this admission?: YesPlan: Corrected. (8) Pneumonia Qualifiers: Pneumonia type: due to Haemophilus influenzae Laterality: bilateral Lung location: unspecified part of lung Qualified Code(s): J14 - Pneumonia due to Hemophilus influenzae Is this a current diagnosis for this admission?: YesPlan: Continue IV Levaquin. Sputum culture growing Haemophilus influenza. (9) Hypertension Qualifiers: Hypertension type: essential hypertension Qualified Code(s): I10 - Essential (primary) hypertension Is this a current diagnosis for this admission?: YesPlan: Blood pressure is stable. Decreased Norvasc to 5 mg daily on 12/29/2016. - Time Critical Time spent with patient: 35 or more minutes
--- NOTE | 2016-12-30 18:11 | PDOC PROGRESS REPORT ---
Subjective Progress Note for:: 12/30/16 Subjective:: Patient is still intubated and sedated Physical Exam Vital Signs: Temp Pulse Resp BP Pulse Ox 37.9 C 117 H 12 118/68 96 12/30/16 16:00 12/30/16 16:00 12/30/16 16:00 12/30/16 16:00 12/30/16 16:27 Intake & Output 12/29/16 12/30/16 12/31/16 06:59 06:59 06:59 Intake Total 4703 5826 350 Output Total 8630 3872 7492 Balance 8755 -697 -2438 Weight 110.9 kg 109 kg Adult Front & Back Image: 1 - Splint and dressing are dry clean and intact. Patient has warm toes and responds to stimuli. Results Laboratory Results: 12/30/16 04:50 12/30/16 04:50 12/30/16 12/30/16 12/30/16 04:50 04:50 04:50 WBC 6.2 RBC 2.78 L Hgb 7.9 L Hct 24.2 L MCV 87 MCH 28.4 MCHC 32.5 RDW 14.0 Plt Count 276 Seg Neutrophils % 72.2 Lymphocytes % 11.6 L Monocytes % 9.5 Eosinophils % 6.4 H Basophils % 0.3 Absolute Neutrophils 4.5 Absolute Lymphocytes 0.7 Absolute Monocytes 0.6 Absolute Eosinophils 0.4 Absolute Basophils 0.0 Carbonic Acid 1.62 H HCO3/H2CO3 Ratio 19:1 ABG pH 7.39 ABG pCO2 53.7 H ABG pO2 66.9 L ABG HCO3 31.6 H ABG O2 Saturation 92.7 L ABG Base Excess 6.0 FiO2 40% Sodium 140.1 Potassium 3.6 Chloride 103 Carbon Dioxide 30 Anion Gap 7 BUN 6 L Creatinine 0.62 Est GFR ( Amer) > 60 Est GFR (Non-Af Amer) > 60 Glucose 90 Calcium 8.6 Total Bilirubin 0.7 AST 88 H ALT 79 H Alkaline Phosphatase 91 Total Protein 5.6 L Albumin 2.4 L Blood Type Antibody Screen 12/30/16 08:53 WBC RBC Hgb Hct MCV MCH MCHC RDW Plt Count Seg Neutrophils % Lymphocytes % Monocytes % Eosinophils % Basophils % Absolute Neutrophils Absolute Lymphocytes Absolute Monocytes Absolute Eosinophils Absolute Basophils Carbonic Acid HCO3/H2CO3 Ratio ABG pH ABG pCO2 ABG pO2 ABG HCO3 ABG O2 Saturation ABG Base Excess FiO2 Sodium Potassium Chloride Carbon Dioxide Anion Gap BUN Creatinine Est GFR ( Amer) Est GFR (Non-Af Amer) Glucose Calcium Total Bilirubin AST ALT Alkaline Phosphatase Total Protein Albumin Blood Type A POSITIVE Antibody Screen NEGATIVE 12/30/16 04:50 NT-Pro-B Natriuret Pep 125 Impressions: Chest/Abdomen CTA 12/22/16 16:25 IMPRESSION: Diffuse parenchymal opacities throughout both lungs. Poor bolus. Cannot evaluate for pulmonary emboli. KUB X-Ray 12/25/16 00:00 IMPRESSION: NO RADIOGRAPHIC EVIDENCE FOR ACUTE ABDOMINAL DISEASE. LARGE CALCIFICATION IN THE PELVIS, POSSIBLY CALCIFIED UTERINE FIBROID. CANNOT EXCLUDE OTHER ETIOLOGY. CT MAY BE CONSIDERED. Ankle X-Ray 12/28/16 00:00 IMPRESSION: IMAGE(S) OBTAINED DURING PROCEDURE. Fluoroscopy 12/28/16 00:00 IMPRESSION: IMAGE(S) OBTAINED DURING PROCEDURE. Chest X-Ray 12/30/16 06:00 IMPRESSION: NO CHANGE IN APPEARANCE OF THE CHEST. Assessment & Plan - Diagnosis (1) Fracture dislocation of left ankle Is this a current diagnosis for this admission?: Yes (2) Ankle syndesmosis disruption Qualifiers: Encounter type: subsequent encounter Laterality: left Qualified Code(s): S93.432D - Sprain of tibiofibular ligament of left ankle, subsequent encounter Is this a current diagnosis for this admission?: Yes - Plan Summary Plan Summary: Patient is postop day 2 from ORIF of her left ankle. Continue ice and elevation. Continue nonweightbearing. Primary team addressing her labs and vital signs. Plan to remove splint and take out the micheline and approximately 10 days from now.
[2016-12-30] MEDS: FUROSEMIDE INJ/PF 20 MG/2 ML SDV IV SCH (18:33)
[2016-12-30] MEDS: MIRTAZAPINE 15 MG TABLET NG SCH (22:55)
[2016-12-31] MEDS: PROPOFOL 100 ML IV PRN ×9 (00:46→22:36)
[2016-12-31] MEDS: IPRATROPIUM/ALBUTEROL 0.5-2.5 MG/3 ML AMPUL NEB SCH ×4 (02:04→20:28)
[2016-12-31] MEDS: GUAIFENESIN SYRP 200 MG/10 ML UDC NG SCH ×6 (03:30→22:22)
[2016-12-31] MEDS: FUROSEMIDE INJ/PF 20 MG/2 ML SDV IV SCH ×2 (05:53→18:45)
[2016-12-31 06:07] LABS: MEAN CORPUSCULAR VOLUME 85 fl (80-97)
[2016-12-31 06:10] LABS: ARTERIAL BLOOD BASE EXCESS 5.9 mmol/L; ARTERIAL BLOOD O2 SATURATION 93.3 % (94-98)
[2016-12-31 06:17] LABS: PARTIAL THROMBOPLASTIN TIME 36.8 SEC (23.5-35.8); PROTHROMBIN TIME 12.9 SEC (11.4-15.4)
[2016-12-31 06:19] LABS: ANION GAP 6 (5-19); BLOOD UREA NITROGEN 8 mg/dL (7-20); CALCIUM 8.9 mg/dL (8.4-10.2); CARBON DIOXIDE 34 mmol/L (22-30); CHLORIDE 100 mmol/L (98-107); CREATININE RESULT 0.61 mg/dL (0.52-1.25); GLUCOSE 88 mg/dL (75-110); MAGNESIUM 2.2 mg/dL (1.6-2.3); POTASSIUM 3.3 mmol/L (3.6-5.0); SODIUM 140.4 mmol/L (137-145)
[2016-12-31 06:32] LABS: ABSOLUTE EOSINOPHILS # (AUTO) 0.4 10^3/uL (0.0-0.6); ABSOLUTE LYMPHOCYTES (AUTO) 0.9 10^3/uL (0.5-4.7); ABSOLUTE MONOCYTES (AUTO) 0.7 10^3/uL (0.1-1.4); ABSOLUTE NEUT (AUTO) 4.9 10^3/uL (1.7-8.2); BASOPHILS % (AUTO) 0.6 % (0-2); EOSINOPHILS % (AUTO) 6.3 % (0-6); HGB HCT DIFFERENCE -0.4; LYMPHOCYTES % (AUTO) 13.1 % (13-45); MEAN CORPUSCULAR HEMOGLOBIN 28.1 pg (27.0-33.4); MEAN CORPUSCULAR HGB CONC 32.9 g/dL (32.0-36.0); MONOCYTES % (AUTO) 9.7 % (3-13); RED BLOOD COUNT 3.64 10^6/uL (3.72-5.28); RED CELL DISTRIBUTION WIDTH 14.9 % (11.5-14.0); SEGMENTED NEUTROPHILS % (AUTO) 70.3 % (42-78); WHITE BLOOD COUNT 6.9 10^3/uL (4.0-10.5)
[2016-12-31 06:41] LABS: HEMOGLOBIN 10.2 g/dL (12.0-15.5)
[2016-12-31] MEDS: POTASSI CL 20 MEQ/50 ML RIDER 50 ML IV SCH ×2 (07:30→08:45)
[2016-12-31] MEDS: METOCLOPRAMIDE HCL INJ/PF 10 MG/2 ML SDV IV SCH ×4 (07:31→22:22)
[2016-12-31] MEDS: ACETYLCYSTEINE 20% SOLN 800 MG/4 ML VIAL.NEB NEB SCH ×2 (08:00→20:29)
[2016-12-31] MEDS: FERROUS SULFATE LIQUID 300 MG/5 ML UDC PO SCH ×2 (10:00→18:48)
[2016-12-31] MEDS: ENOXAPARIN SODIUM INJ 40 MG/0.4 ML DISP.SYRIN SUBCUT SCH (10:01)
[2016-12-31] MEDS: MAGNESIUM OXIDE 400 MG TABLET NG SCH ×3 (10:01→18:45)
[2016-12-31] MEDS: LEVOTHYROXINE SODIUM 0.025 MG TABLET NG SCH (10:01)
[2016-12-31] MEDS: AMLODIPINE BESYLATE 5 MG TABLET NG SCH (10:01)
[2016-12-31] MEDS: PANTOPRAZOLE SODIUM 40 MG VIAL IV SCH ×2 (10:01→22:23)
--- NOTE | 2016-12-31 14:08 | PDOC PROGRESS REPORT ---
Subjective Progress Note for:: 12/31/16 Subjective:: Patient is tolerating pressure support ventilation trial today. Review of systems cannot be obtained secondary to sedated/intubated state. Physical Exam Vital Signs: Temp Pulse Resp BP Pulse Ox 98.2 F 105 H 14 132/83 H 96 12/31/16 12:00 12/31/16 13:28 12/31/16 13:28 12/31/16 12:00 12/31/16 13:28 Intake & Output 12/30/16 12/31/16 01/01/17 06:59 06:59 06:59 Intake Total 2301 7055 Output Total 5630 0857 9167 Balance -479 -6446 -1866 Weight 109 kg 108.9 kg GENERAL: No acute distress, sedated/intubated HEENT: Conjunctiva clear, nonicteric, moist mucous membranes, no JVD, endotracheal tube in place, trachea midline RESPIRATORY: Clear to auscultation bilaterally, no wheezes, no rhonchi CARDIAC: Regular rate and rhythm, no murmurs/gallops/rubs ABDOMEN: Soft, nondistended, nontender, positive bowel sounds, no rebound, no guarding EXTREMETIES: No edema, cyanosis, clubbing NEUROLOGIC: Sedated SKIN: No rash, wounds MUSCULOSKELETAL: Splint to left ankle Results Laboratory Results: 12/31/16 05:45 12/31/16 05:45 12/30/16 12/31/16 12/31/16 08:53 05:45 05:45 WBC 6.9 RBC 3.64 L Hgb 10.2 L D Hct 31.0 L MCV 85 MCH 28.1 MCHC 32.9 RDW 14.9 H Plt Count 324 Seg Neutrophils % 70.3 Lymphocytes % 13.1 Monocytes % 9.7 Eosinophils % 6.3 H Basophils % 0.6 Absolute Neutrophils 4.9 Absolute Lymphocytes 0.9 Absolute Monocytes 0.7 Absolute Eosinophils 0.4 Absolute Basophils 0.0 Carbonic Acid 1.57 H HCO3/H2CO3 Ratio 20:1 ABG pH 7.40 ABG pCO2 52.2 H ABG pO2 67.8 L ABG HCO3 31.8 H ABG O2 Saturation 93.3 L ABG Base Excess 5.9 FiO2 40% Sodium Potassium Chloride Carbon Dioxide Anion Gap BUN Creatinine Est GFR ( Amer) Est GFR (Non-Af Amer) Glucose Calcium Magnesium Blood Type A POSITIVE Antibody Screen NEGATIVE 12/31/16 05:45 WBC RBC Hgb Hct MCV MCH MCHC RDW Plt Count Seg Neutrophils % Lymphocytes % Monocytes % Eosinophils % Basophils % Absolute Neutrophils Absolute Lymphocytes Absolute Monocytes Absolute Eosinophils Absolute Basophils Carbonic Acid HCO3/H2CO3 Ratio ABG pH ABG pCO2 ABG pO2 ABG HCO3 ABG O2 Saturation ABG Base Excess FiO2 Sodium 140.4 Potassium 3.3 L Chloride 100 Carbon Dioxide 34 H Anion Gap 6 BUN 8 Creatinine 0.61 Est GFR ( Amer) > 60 Est GFR (Non-Af Amer) > 60 Glucose 88 Calcium 8.9 Magnesium 2.2 Blood Type Antibody Screen 12/30/16 04:50 NT-Pro-B Natriuret Pep 125 Impressions: Chest/Abdomen CTA 12/22/16 16:25 IMPRESSION: Diffuse parenchymal opacities throughout both lungs. Poor bolus. Cannot evaluate for pulmonary emboli. KUB X-Ray 12/25/16 00:00 IMPRESSION: NO RADIOGRAPHIC EVIDENCE FOR ACUTE ABDOMINAL DISEASE. LARGE CALCIFICATION IN THE PELVIS, POSSIBLY CALCIFIED UTERINE FIBROID. CANNOT EXCLUDE OTHER ETIOLOGY. CT MAY BE CONSIDERED. Ankle X-Ray 12/28/16 00:00 IMPRESSION: IMAGE(S) OBTAINED DURING PROCEDURE. Fluoroscopy 12/28/16 00:00 IMPRESSION: IMAGE(S) OBTAINED DURING PROCEDURE. Chest X-Ray 12/31/16 06:00 IMPRESSION: NO CHANGE IN APPEARANCE OF THE CHEST. Assessment & Plan - Diagnosis (1) Acute respiratory failure Qualifiers: Respiratory failure complication: hypoxia and hypercapnia Qualified Code(s): J96.01 - Acute respiratory failure with hypoxia Is this a current diagnosis for this admission?: YesPlan: Continue mechanical ventilation. Pressure support trials daily. (2) Pneumonia Qualifiers: Pneumonia type: due to Haemophilus influenzae Laterality: bilateral Lung location: unspecified part of lung Qualified Code(s): J14 - Pneumonia due to Hemophilus influenzae Is this a current diagnosis for this admission?: YesPlan: Continue IV Levaquin day #9. Sputum culture growing Haemophilus influenza. (3) Acute diastolic CHF (congestive heart failure) Is this a current diagnosis for this admission?: YesPlan: Continue Lasix 20 mg IV every 12 hours. Repeat chest x-ray in a.m. Echocardiogram performed this admission shows grade 2/4 diastolic dysfunction, EF normal, no hemodynamically significant valvular disease. (4) Fracture dislocation of left ankle Is this a current diagnosis for this admission?: YesPlan: Patient is status post ORIF on 12/28/[address] Mchugh of orthopedics. She is to be nonweightbearing. (5) Acute blood loss anemia Is this a current diagnosis for this admission?: YesPlan: Transfuse 2 units PRBC. Gastric occult was positive. Continue iron supplementation. (6) GI bleed Is this a current diagnosis for this admission?: YesPlan: Continue IV Protonix. GI consult appreciated. Dr. Mejia considering EGD. (7) History of traumatic brain injury Is this a current diagnosis for this admission?: Yes (8) Hypokalemia Is this a current diagnosis for this admission?: YesPlan: Replace as needed. (9) Hypertension Qualifiers: Hypertension type: essential hypertension Qualified Code(s): I10 - Essential (primary) hypertension Is this a current diagnosis for this admission?: YesPlan: Blood pressure is stable. Decreased Norvasc to 5 mg daily on 12/29/2016. - Time Critical Time spent with patient: 35 or more minutes Anticipated discharge: Acute Rehab
--- NOTE | 2016-12-31 14:25 | Operative Report ---
Operative Report DATE OF SURGERY: 12/31/16 Operative Report: The risks benefits and alternatives of the procedure explained to the patient in detail and informed consent is obtained that GIF Olympus video scope was inserted into the patient's mouth and hypopharynx the esophagus is identified intubated and insufflated the scope was then advanced through the esophagus stomach and duodenum retroflexion maneuver is done the esophagus stomach and first and second portions of the duodenum examined PREOPERATIVE DIAGNOSIS: GI bleeding, gastric secretion positive for blood POSTOPERATIVE DIAGNOSIS: Severe erosive nodular gastritis status post biopsy. Hiatal hernia. No active bleeding OPERATION: EGD with biopsy SURGEON: PIETER MARSHALL ANESTHESIA: LMAC TISSUE REMOVED OR ALTERED: Gastric specimen rule out Helicobacter pylori COMPLICATIONS: None. ESTIMATED BLOOD LOSS: none. INTRAOPERATIVE FINDINGS: As described above. PROCEDURE: Patient tolerated the procedure well. No complications are noted. We'll await on biopsies. Continue current care. PPI should be started. If biopsies are positive we'll need to treat for Helicobacter pylori.
--- NOTE | 2016-12-31 17:51 | PDOC PROGRESS REPORT ---
Subjective Progress Note for:: 12/31/16 Subjective:: Patient continues to be intubated and sedated Physical Exam Vital Signs: Temp Pulse Resp BP Pulse Ox 37.6 C 114 H 16 130/72 H 95 12/31/16 16:00 12/31/16 14:25 12/31/16 14:25 12/31/16 14:25 12/31/16 16:18 Intake & Output 12/30/16 12/31/16 01/01/17 06:59 06:59 06:59 Intake Total 4661 1152 Output Total 2176 7076 1999 Balance -266 -1530 -2000 Weight 109 kg 108.9 kg Adult Front & Back Image: 1 - Splint is intact. Extremities elevated with a pillow. Warm toes with good capillary refill. Still moving toes to stimuli. Results Laboratory Results: 12/31/16 05:45 12/31/16 05:45 12/30/16 12/31/16 12/31/16 08:53 05:45 05:45 WBC 6.9 RBC 3.64 L Hgb 10.2 L D Hct 31.0 L MCV 85 MCH 28.1 MCHC 32.9 RDW 14.9 H Plt Count 324 Seg Neutrophils % 70.3 Lymphocytes % 13.1 Monocytes % 9.7 Eosinophils % 6.3 H Basophils % 0.6 Absolute Neutrophils 4.9 Absolute Lymphocytes 0.9 Absolute Monocytes 0.7 Absolute Eosinophils 0.4 Absolute Basophils 0.0 Carbonic Acid 1.57 H HCO3/H2CO3 Ratio 20:1 ABG pH 7.40 ABG pCO2 52.2 H ABG pO2 67.8 L ABG HCO3 31.8 H ABG O2 Saturation 93.3 L ABG Base Excess 5.9 FiO2 40% Sodium Potassium Chloride Carbon Dioxide Anion Gap BUN Creatinine Est GFR ( Amer) Est GFR (Non-Af Amer) Glucose Calcium Magnesium Blood Type A POSITIVE Antibody Screen NEGATIVE 12/31/16 05:45 WBC RBC Hgb Hct MCV MCH MCHC RDW Plt Count Seg Neutrophils % Lymphocytes % Monocytes % Eosinophils % Basophils % Absolute Neutrophils Absolute Lymphocytes Absolute Monocytes Absolute Eosinophils Absolute Basophils Carbonic Acid HCO3/H2CO3 Ratio ABG pH ABG pCO2 ABG pO2 ABG HCO3 ABG O2 Saturation ABG Base Excess FiO2 Sodium 140.4 Potassium 3.3 L Chloride 100 Carbon Dioxide 34 H Anion Gap 6 BUN 8 Creatinine 0.61 Est GFR ( Amer) > 60 Est GFR (Non-Af Amer) > 60 Glucose 88 Calcium 8.9 Magnesium 2.2 Blood Type Antibody Screen 12/30/16 04:50 NT-Pro-B Natriuret Pep 125 Impressions: Chest/Abdomen CTA 12/22/16 16:25 IMPRESSION: Diffuse parenchymal opacities throughout both lungs. Poor bolus. Cannot evaluate for pulmonary emboli. Ankle X-Ray 12/28/16 00:00 IMPRESSION: IMAGE(S) OBTAINED DURING PROCEDURE. Fluoroscopy 12/28/16 00:00 IMPRESSION: IMAGE(S) OBTAINED DURING PROCEDURE. Chest X-Ray 12/31/16 06:00 IMPRESSION: NO CHANGE IN APPEARANCE OF THE CHEST. Assessment & Plan - Diagnosis (1) Fracture dislocation of left ankle Is this a current diagnosis for this admission?: Yes (2) Ankle syndesmosis disruption Qualifiers: Encounter type: subsequent encounter Laterality: left Qualified Code(s): S93.432D - Sprain of tibiofibular ligament of left ankle, subsequent encounter Is this a current diagnosis for this admission?: Yes - Plan Summary Plan Summary: Plan continues to be nonweightbearing with ice and elevation of the left lower extremity. Keep the splint dry clean and intact. The patient is here 10-14 days from her surgery we will redo the splint and remove the micheline in the hospital.
[2016-12-31] MEDS: MIRTAZAPINE 15 MG TABLET NG SCH (22:23)
[2016-12-31] MEDS: OXYCODONE-ACETAMINOPHEN 5-325 MG TABLET PO PRN (22:46)
[2017-01-01] MEDS: PROPOFOL 100 ML IV PRN ×8 (00:57→18:57)
[2017-01-01] MEDS: IPRATROPIUM/ALBUTEROL 0.5-2.5 MG/3 ML AMPUL NEB SCH ×3 (01:12→14:14)
[2017-01-01] MEDS: GUAIFENESIN SYRP 200 MG/10 ML UDC NG SCH ×5 (02:36→17:04)
[2017-01-01] MEDS: FUROSEMIDE INJ/PF 20 MG/2 ML SDV IV SCH ×2 (05:22→17:04)
[2017-01-01 06:01] LABS: ABSOLUTE EOSINOPHILS # (AUTO) 0.4 10^3/uL (0.0-0.6); ABSOLUTE LYMPHOCYTES (AUTO) 1.2 10^3/uL (0.5-4.7); ABSOLUTE MONOCYTES (AUTO) 0.7 10^3/uL (0.1-1.4); ABSOLUTE NEUT (AUTO) 4.1 10^3/uL (1.7-8.2); BASOPHILS % (AUTO) 0.4 % (0-2); EOSINOPHILS % (AUTO) 6.9 % (0-6); HEMOGLOBIN 10.2 g/dL (12.0-15.5); HGB HCT DIFFERENCE -0.4; LYMPHOCYTES % (AUTO) 18.8 % (13-45); MEAN CORPUSCULAR HGB CONC 32.8 g/dL (32.0-36.0); MEAN CORPUSCULAR VOLUME 85 fl (80-97); MONOCYTES % (AUTO) 10.2 % (3-13); RED BLOOD COUNT 3.64 10^6/uL (3.72-5.28); RED CELL DISTRIBUTION WIDTH 14.6 % (11.5-14.0); SEGMENTED NEUTROPHILS % (AUTO) 63.7 % (42-78); WHITE BLOOD COUNT 6.4 10^3/uL (4.0-10.5)
[2017-01-01 06:02] LABS: ARTERIAL BLOOD O2 SATURATION 96.2 % (94-98)
[2017-01-01 06:21] LABS: ANION GAP 6 (5-19); BLOOD UREA NITROGEN 10 mg/dL (7-20); CARBON DIOXIDE 35 mmol/L (22-30); CHLORIDE 97 mmol/L (98-107); CREATININE RESULT 0.63 mg/dL (0.52-1.25); GLUCOSE 85 mg/dL (75-110); POTASSIUM 3.2 mmol/L (3.6-5.0); SODIUM 138.4 mmol/L (137-145); TRIGLYCERIDES 313 mg/dL (<150)
[2017-01-01] MEDS: METOCLOPRAMIDE HCL INJ/PF 10 MG/2 ML SDV IV SCH ×3 (07:37→17:02)
[2017-01-01] MEDS: OXYCODONE-ACETAMINOPHEN 5-325 MG TABLET PO PRN (07:37)
[2017-01-01] MEDS: ACETYLCYSTEINE 20% SOLN 800 MG/4 ML VIAL.NEB NEB SCH (08:04)
[2017-01-01] MEDS: POTASSI CL 20 MEQ/50 ML RIDER 50 ML IV SCH ×2 (08:36→11:44)
--- NOTE | 2017-01-01 08:39 | PDOC PROGRESS REPORT ---
Subjective Progress Note for:: 01/01/17 Subjective:: Patient tolerated the procedure well yesterday. She does have erosive nodular gastritis, but no active bleeding. Biopsies obtained. NG tube was replaced. awaiting biopsies , treat for Helicobacter pylori if necessary No significant overnight events. Patient remains on the vent. Continue PPI. Hemoglobin stable. Physical Exam Vital Signs: Temp Pulse Resp BP Pulse Ox 97.6 F 102 H 16 97/66 L 97 01/01/17 08:00 01/01/17 08:18 01/01/17 08:18 01/01/17 08:00 01/01/17 08:22 Intake & Output 12/31/16 01/01/17 01/02/17 06:59 06:59 06:59 Intake Total 2345 1633 Output Total 3876 7100 Balance -1530 -8103 Weight 108.9 kg 106.1 kg General appearance: PRESENT: no acute distress Head exam: PRESENT: atraumatic, normocephalic Eye exam: ABSENT: nystagmus, periorbital swelling, scleral icterus Throat exam: ABSENT: tonsillar exudate Neck exam: ABSENT: meningismus, tenderness, thyromegaly Respiratory exam: PRESENT: crackles, symmetrical. ABSENT: accessory muscle use Cardiovascular exam: PRESENT: RRR, +S1, +S2. ABSENT: gallop, rubs Pulses: PRESENT: normal carotid pulses GI/Abdominal exam: PRESENT: normal bowel sounds, soft. ABSENT: rebound, rigid, tenderness Skin exam: PRESENT: normal color. ABSENT: mottled, pallor, petechiae, urticaria , vesicles Results Laboratory Results: 01/01/17 05:45 01/01/17 05:45 01/01/17 01/01/17 01/01/17 05:45 05:45 05:45 WBC 6.4 RBC 3.64 L Hgb 10.2 L Hct 31.0 L MCV 85 MCH 28.0 MCHC 32.8 RDW 14.6 H Plt Count 325 Seg Neutrophils % 63.7 Lymphocytes % 18.8 Monocytes % 10.2 Eosinophils % 6.9 H Basophils % 0.4 Absolute Neutrophils 4.1 Absolute Lymphocytes 1.2 Absolute Monocytes 0.7 Absolute Eosinophils 0.4 Absolute Basophils 0.0 Carbonic Acid 1.68 H HCO3/H2CO3 Ratio 20:1 ABG pH 7.42 ABG pCO2 55.7 H ABG pO2 83.5 ABG HCO3 35.2 H ABG O2 Saturation 96.2 ABG Base Excess 9.0 FiO2 50% Sodium 138.4 Potassium 3.2 L Chloride 97 L Carbon Dioxide 35 H Anion Gap 6 BUN 10 Creatinine 0.63 Est GFR ( Amer) > 60 Est GFR (Non-Af Amer) > 60 Glucose 85 Calcium 9.0 Magnesium 2.0 Triglycerides 313 H 12/30/16 04:50 NT-Pro-B Natriuret Pep 125 Impressions: Chest/Abdomen CTA 12/22/16 16:25 IMPRESSION: Diffuse parenchymal opacities throughout both lungs. Poor bolus. Cannot evaluate for pulmonary emboli. Ankle X-Ray 12/28/16 00:00 IMPRESSION: IMAGE(S) OBTAINED DURING PROCEDURE. Fluoroscopy 12/28/16 00:00 IMPRESSION: IMAGE(S) OBTAINED DURING PROCEDURE. KUB X-Ray 12/31/16 16:30 IMPRESSION: Nasogastric tube tip projecting over the region of the distal stomach. Multiple dilated loops of bowel are noted throughout the suggested ileus or obstruction. Chest X-Ray 01/01/17 06:00 IMPRESSION: No significant interval change. Findings as noted above. Assessment & Plan - Diagnosis (1) Acute blood loss anemia Is this a current diagnosis for this admission?: YesPlan: No acute bleeding is noted however likely do suspect H.pylori will wait on biopsy for confirmation PPI should be started patient will need to be monitored transfuse as necessary will continue to follow up as needed - Time Time Spent with patient: 15-24 minutes
[2017-01-01] MEDS: AMLODIPINE BESYLATE 5 MG TABLET NG SCH (09:12)
[2017-01-01] MEDS: LEVOTHYROXINE SODIUM 0.025 MG TABLET NG SCH (09:12)
[2017-01-01] MEDS: MAGNESIUM OXIDE 400 MG TABLET NG SCH ×3 (09:12→17:03)
[2017-01-01] MEDS: ENOXAPARIN SODIUM INJ 40 MG/0.4 ML DISP.SYRIN SUBCUT SCH (09:13)
[2017-01-01] MEDS: PANTOPRAZOLE SODIUM 40 MG VIAL IV SCH (09:13)
[2017-01-01] MEDS ORDERED: LEVOFLOXACIN 750 MG/D5W RTU 150 ML IV SCH (10:00)
[2017-01-01] MEDS ORDERED: MORPHINE SULFATE 10 MG/ML INJ ONE (10:07)
[2017-01-01] MEDS ORDERED: RACEPINEPHRINE HCL 2.25% NEB 0.5 ML AMPUL NEB ONE (10:41)
[2017-01-01] MEDS ORDERED: DEXAMETHASONE SOD PHOSPHATE INJ 4 MG/1 ML VIAL ONE (10:43)
[2017-01-01] MEDS: FERROUS SULFATE LIQUID 300 MG/5 ML UDC PO SCH ×2 (11:46→17:03)
[2017-01-01] MEDS: PIPERACILLIN SODIUM/TAZOBACTAM 3.375 GM in NORMAL SALINE 100 ML IV SCH ×2 (12:45→17:05)
--- NOTE | 2017-01-01 12:54 | PDOC TRANSFER SUMMARY ---
General Admission Date/PCP: 12/23/16 00:51 Admission Date: 12/23/16 Transfer Date: 01/01/17 Accepting Facility: [facility] Accepting Physician: Dr. Lubin-claims adjuster crop Resuscitation Status: Full Code - Transfer Diagnosis (1) Acute respiratory failure Is this a current diagnosis for this admission?: Yes (2) Pneumonia Is this a current diagnosis for this admission?: Yes (3) Acute diastolic CHF (congestive heart failure) Is this a current diagnosis for this admission?: Yes (4) Fracture dislocation of left ankle Is this a current diagnosis for this admission?: Yes (5) Acute blood loss anemia Is this a current diagnosis for this admission?: Yes (6) GI bleed Is this a current diagnosis for this admission?: Yes (7) History of traumatic brain injury Is this a current diagnosis for this admission?: Yes (8) Hypokalemia Is this a current diagnosis for this admission?: Yes (9) Hypertension Is this a current diagnosis for this admission?: Yes - Transfer Medications Home Medications: Amlodipine Besylate [Norvasc 5 mg Tablet] 5 mg PO DAILY 12/23/16 Atorvastatin Calcium [Lipitor 10 mg Tablet] 10 mg PO QHS 12/23/16 Clotrimazole/Betamethasone Dip [Clotrimazole-Betamethasone Crm] 1 applic TOP BID 12/23/16 Docusate Sodium [Colace 100 mg Capsule] 100 mg PO DAILYP PRN 12/23/16 Hydroxyzine HCl [Atarax 25 mg Tablet] 25 mg PO HSP PRN 12/23/16 Levothyroxine Sodium [Synthroid 0.025 mg Tablet] 0.025 mg PO DAILY 12/23/16 Lisinopril [Prinivil 5 mg Tablet] 5 mg PO DAILY 12/23/16 Mirtazapine [Remeron 15 mg Tablet] 15 mg PO QHS 12/23/16 Potassium Chloride [Klor-Con 10 Meq Tablet.sa] 10 meq PO BID 12/23/16 Transfer Medications: Current Medications Acetaminophen (Tylenol 325 Mg Tablet) 650 mg NG Q4HP PRN PRN Reason: pain or temp greater than 101F Stop: 01/22/17 00:50 Last Admin: 12/30/16 18:33 Dose: 650 mg Acetylcysteine (Mucomist 20% Soln 800 Mg/4 Ml) 600 mg NEB RTBID ELOY Stop: 01/23/17 19:59 Last Admin: 01/01/17 08:04 Dose: 600 mg Albuterol/Ipratropium (Duoneb 3 Ml Ampul) 3 ml NEB RTQ6 ELOY Stop: 01/22/17 01:59 Last Admin: 01/01/17 08:04 Dose: 3 ml Amlodipine Besylate (Norvasc 5 Mg Tablet) 5 mg NG DAILY ELOY Stop: 01/28/17 09:59 Last Admin: 01/01/17 09:12 Dose: 5 mg Bisacodyl (Dulcolax 10 Mg Supp.Rect) 10 mg ID DAILYP PRN Stop: 01/26/17 09:25 Dexamethasone Sodium Phosphate (Decadron Inj 4 Mg/Ml Vial) 4 mg IV Q8 ELOY Stop: 01/31/17 13:59 Enoxaparin Sodium (Lovenox Inj 40 Mg/0.4 Ml Disp.Syrin) 40 mg SUBCUT DAILY ELOY Stop: 01/28/17 09:59 Last Admin: 01/01/17 09:13 Dose: 40 mg Ferrous Sulfate (Ferrous Sulfate Liquid 300 Mg/5 Ml Udcup) 300 mg PO BID ELOY Stop: 01/29/17 09:59 Last Admin: 12/31/16 18:48 Dose: 300 mg Furosemide (Lasix Inj/Pf 20 Mg/2 Ml Sdv) 20 mg IV Q12A ELOY Stop: 01/29/17 17:59 Last Admin: 01/01/17 05:22 Dose: 20 mg Guaifenesin (Robitussin Syrup 200 Mg/10 Ml Ud Cup) 200 mg NG Q4 ELOY Stop: 01/23/17 09:59 Last Admin: 01/01/17 09:12 Dose: 200 mg Propofol (Diprivan Rtu 1000 Mg/100 Ml Inf.Bottle) 100 mls @ 0 mls/hr IV CONTINUOUS PRN; Protocol; Titrate PRN Reason: THIS MED IS NOT "PRN" Stop: 01/22/17 00:55 Last Admin: 01/01/17 07:37 Dose: 100 ml Levofloxacin/Dextrose (Levaquin Rtu 750 Mg/D5w 150 Ml Premix) 150 mls @ 100 mls /hr IV DAILY ELOY Stop: 01/08/17 09:59 Last Admin: 01/01/17 09:12 Dose: 150 ml Potassium Chloride/Water (Potassium Chloride Edvin 20 Meq/50 Ml) 50 mls @ 25 mls/hr IV Q2H ELOY Stop: 01/01/17 12:29 Last Admin: 01/01/17 08:36 Dose: 50 ml Piperacillin Sod/Tazobactam (Sod 3.375 gm/ Sodium Chloride) 100 mls @ 200 mls/ hr IV Q6 [facility] Stop: 01/08/17 11:59 Influenza Virus Vaccine Quadrival (Fluzone Adlt Quad [id number] Vac 0.5 Ml Syr) 0.5 ml IM .AT DISCHARGE PRN PRN Reason: THIS MED IS NOT "PRN" Stop: 01/22/17 04:09 Levothyroxine Sodium (Synthroid 0.025 Mg Tablet) 0.025 mg NG DAILY ELOY Stop: 01/25/17 09:59 Last Admin: 01/01/17 09:12 Dose: 0.025 mg Magnesium Oxide (Mag-Ox 400 Mg Tablet) 400 mg NG TID ELOY Stop: 01/23/17 09:59 Last Admin: 01/01/17 09:12 Dose: 400 mg Metoclopramide HCl (Reglan Inj/Pf 10 Mg/2 Ml Sdv) 5 mg IV ACHS ELOY Stop: 01/26/17 15:59 Last Admin: 01/01/17 07:37 Dose: 5 mg Mirtazapine (Remeron 15 Mg Tablet) 15 mg NG QHS ELOY Stop: 01/24/17 21:59 Last Admin: 12/31/16 22:23 Dose: 15 mg Morphine Sulfate (Morphine 10 Mg/Ml Inj) 2 mg IV Q4HP PRN PRN Reason: SEVERE PAIN Stop: 01/08/17 10:08 Oxycodone/Acetaminophen (Percocet 5-325 Mg Tablet) 1 tab PO Q6HP PRN PRN Reason: FOR PAIN Stop: 01/04/17 20:29 Last Admin: 01/01/17 07:37 Dose: 1 tab Pantoprazole Sodium (Protonix Iv Inj 40 Mg Vial) 40 mg IV Q12 [facility] Stop: 01/01/17 21:59 Last Admin: 01/01/17 09:13 Dose: 40 mg Pharmacy Profile Note (Medication Communication Order) 1 each .NOTICE NR Stop: 01/24/17 18:59 Sodium Chloride (Saline Flush 2.5 Ml Monoject Prefil Syrin) 2.5 ml IV Q8 ELOY Stop: 01/22/17 05:59 Last Admin: 01/01/17 05:23 Dose: 2.5 ml - Allergies Allergies/Adverse Reactions: No Known Allergies Allergy (Verified 08/27/12 09:50) - Diet/Activity Discharge Diet: Tube Feeding (Comments) - Oxepa 1.5 at 30 mL/hr Discharge Activity: Bedrest Hospital Course Hospital Course: History of present illness: CICI COLES is a 56 year old female with a past medical 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 Hospital course: Patient was admitted primarily for acute respiratory failure secondary to pneumonia and left ankle fracture. From a respiratory standpoint patient required intubation and mechanical ventilation throughout hospitalization. She was followed by Dr. Almanza of pulmonary medicine during hospitalization, however Dr. Almanza is out for medical reasons as of 12/31/2016 and no longer available for consultation. We have no pulmonary service at our facility at this time. We have no ENT service at our facility at this time. Patient's ventilator settings were weaned and she was doing well on pressure support ventilation trials on 12/31/2016 and 08/2017. Patient was therefore extubated on 01/01/2017 and very quickly developed upper airway stridor and oxygen desaturation necessitating reintubation. Patient did experience regurgitation during reintubation and has therefore been placed on IV Zosyn on 01/01/2017 in addition to IV Levaquin that she has been taking since admission. Patient was started on IV Decadron secondary to upper airway stridor. At this point patient necessitated transfer to tertiary care facility for further claims adjuster crop/pulmonary critical care and ENT evaluation. With regard to pneumonia, patient was started on IV antibiotics on admission. Sputum culture from 12/23/2016 grew Haemophilus influenza for which patient has remained on IV Levaquin. IV Zosyn was added as mentioned above on 01/01/2017 for possible aspiration during reintubation. From a cardiac standpoint, patient was noted to develop pulmonary edema during hospitalization. IV fluids were discontinued and patient was maintained on tube feeding. Patient was started on Lasix 20 mg IV every 12 hours. Echocardiogram showed grade 2/4 diastolic dysfunction, normal EF, no significant valvular disease. Patient also has history of hypertension. Norvasc had to be decreased to 5 mg daily on 12/29/2016 secondary to low blood pressures. From a hematologic standpoint, patient had acute blood loss anemia of gastrointestinal origin. Gastroccult was positive. Patient has been started on IV Protonix. Dr. Mejia of GI performed EGD on 12/31/2016 which showed severe gastritis, hiatal hernia, no active bleed. Patient was transfused 2 units PRBC on 12/30/2016. Hemoglobin has been stable at 10.2 posttransfusion. From an orthopedic standpoint, patient presented with left ankle fracture. Patient is status post ORIF on 12/28/[address] Mchugh of orthopedics. She is to be nonweightbearing. From a neurologic standpoint, patient has history of traumatic brain injury during childhood with resulting developmental delay. Physical Exam Vital Signs: Temp Pulse Resp BP Pulse Ox 97.6 F 102 H 16 97/66 L 97 01/01/17 08:00 01/01/17 08:18 01/01/17 08:18 01/01/17 08:00 01/01/17 08:22 Intake & Output 12/31/16 01/01/17 01/02/17 06:59 06:59 06:59 Intake Total 2345 1633 Output Total 3875 3910 Balance -1530 -2277 Weight 108.9 kg 106.1 kg GENERAL: No acute distress, sedated/intubated HEENT: Conjunctiva clear, nonicteric, moist mucous membranes, no JVD, endotracheal tube in place, trachea midline RESPIRATORY: Clear to auscultation bilaterally, no wheezes, no rhonchi CARDIAC: Regular rate and rhythm, no murmurs/gallops/rubs ABDOMEN: Soft, nondistended, nontender, positive bowel sounds, no rebound, no guarding EXTREMETIES: No edema, cyanosis, clubbing NEUROLOGIC: Sedated SKIN: No rash, wounds MUSCULOSKELETAL: Splint to left ankle Results Laboratory Results: 01/01/17 05:45 01/01/17 05:45 01/01/17 01/01/17 01/01/17 05:45 05:45 05:45 WBC 6.4 RBC 3.64 L Hgb 10.2 L Hct 31.0 L MCV 85 MCH 28.0 MCHC 32.8 RDW 14.6 H Plt Count 325 Seg Neutrophils % 63.7 Lymphocytes % 18.8 Monocytes % 10.2 Eosinophils % 6.9 H Basophils % 0.4 Absolute Neutrophils 4.1 Absolute Lymphocytes 1.2 Absolute Monocytes 0.7 Absolute Eosinophils 0.4 Absolute Basophils 0.0 Carbonic Acid 1.68 H HCO3/H2CO3 Ratio 20:1 ABG pH 7.42 ABG pCO2 55.7 H ABG pO2 83.5 ABG HCO3 35.2 H ABG O2 Saturation 96.2 ABG Base Excess 9.0 FiO2 50% Sodium 138.4 Potassium 3.2 L Chloride 97 L Carbon Dioxide 35 H Anion Gap 6 BUN 10 Creatinine 0.63 Est GFR ( Amer) > 60 Est GFR (Non-Af Amer) > 60 Glucose 85 Calcium 9.0 Magnesium 2.0 Triglycerides 313 H 12/30/16 04:50 NT-Pro-B Natriuret Pep 125 12/24/16 15:45 Gram Stain - Final Sputum Sputum Culture - Final NO GROWTH 3 DAYS 12/23/16 06:19 Blood Culture - Final Blood NO GROWTH IN 5 DAYS 12/23/16 04:59 Gram Stain - Final Tracheal Aspirate Sputum Culture - Final Haemophilus Influenzae Normal Latrice 12/23/16 00:01 Blood Culture - Final Blood NO GROWTH IN 5 DAYS Impressions: Chest/Abdomen CTA 12/22/16 16:25 IMPRESSION: Diffuse parenchymal opacities throughout both lungs. Poor bolus. Cannot evaluate for pulmonary emboli. Ankle X-Ray 12/28/16 00:00 IMPRESSION: IMAGE(S) OBTAINED DURING PROCEDURE. Fluoroscopy 12/28/16 00:00 IMPRESSION: IMAGE(S) OBTAINED DURING PROCEDURE. KUB X-Ray 12/31/16 16:30 IMPRESSION: Nasogastric tube tip projecting over the region of the distal stomach. Multiple dilated loops of bowel are noted throughout the suggested ileus or obstruction. Plan Discharge Plan: Transfer to tertiary care for pulmonary/critical care and ENT evaluation. Time Spent: Greater than 30 Minutes
[2017-01-01] MEDS ORDERED: DEXAMETHASONE SOD PHOSPHATE INJ 4 MG/1 ML VIAL IV SCH (14:00)
[2017-01-01] MEDS: MORPHINE SULFATE 10 MG/ML INJ IV PRN ×2 (14:22→17:53)
[2017-01-01] MEDS ORDERED: DEXAMETHASONE SOD PHOS INJ 10 MG/1 ML VIAL IV SCH (18:00)
[2017-01-01 18:18] VITALS: BP 102/66
== END 2017-01-01 19:30 | disposition short-term general hospital (02) | DRG 981 ==
LOC: ER 12:43 → EH 12-23 00:51 → ICU 01-01 11:03
PROVIDERS: ADMIT Internal Medicine; ATTEND Internal Medicine
PROC: 0BH17EZ Insertion of Endotracheal Airway into Trachea, Via Natural or Artificial Opening (ICD-10-PCS; principal; 2016-12-22)
PROC: 5A1955Z Respiratory Ventilation, Greater than 96 Consecutive Hours (ICD-10-PCS; 2016-12-22)
PROC: 02HV33Z Insertion of Infusion Device into Superior Vena Cava, Percutaneous Approach (ICD-10-PCS; 2016-12-22)
PROC: B548ZZA Ultrasonography of Superior Vena Cava, Guidance (ICD-10-PCS; 2016-12-22)
PROC: 0QSK04Z Reposition Left Fibula with Internal Fixation Device, Open Approach (ICD-10-PCS; 2016-12-28)
PROC: 0QSH04Z Reposition Left Tibia with Internal Fixation Device, Open Approach (ICD-10-PCS; 2016-12-28)
PROC: 30233N1 Transfusion of Nonautologous Red Blood Cells into Peripheral Vein, Percutaneous Approach (ICD-10-PCS; 2016-12-30)
PROC: 0DB68ZX Excision of Stomach, Via Natural or Artificial Opening Endoscopic, Diagnostic (ICD-10-PCS; 2016-12-31)
PROC: 0BH17EZ Insertion of Endotracheal Airway into Trachea, Via Natural or Artificial Opening (ICD-10-PCS; 2017-01-01)
PROC: 5A1935Z Respiratory Ventilation, Less than 24 Consecutive Hours (ICD-10-PCS; 2017-01-01)
DX: J14 Pneumonia due to Hemophilus influenzae (principal); J96.01 Acute respiratory failure with hypoxia; J96.02 Acute respiratory failure with hypercapnia; I50.21 Acute systolic (congestive) heart failure; Z68.41 Body mass index [BMI] 40.0-44.9, adult; D62 Acute posthemorrhagic anemia; E87.2 Acidosis; K92.2 Gastrointestinal hemorrhage, unspecified; K25.9 Gastric ulcer, unspecified as acute or chronic, without hemorrhage or perforation; S82.492A Other fracture of shaft of left fibula, initial encounter for closed fracture; S82.52XA Displaced fracture of medial malleolus of left tibia, initial encounter for closed fracture; E03.9 Hypothyroidism, unspecified; F41.9 Anxiety disorder, unspecified; W18.30XA Fall on same level, unspecified, initial encounter; Y93.89 Activity, other specified; Z87.820 Personal history of traumatic brain injury; Y92.009 Unspecified place in unspecified non-institutional (private) residence as the place of occurrence of the external cause; F79 Unspecified intellectual disabilities; Z79.899 Other long term (current) drug therapy; K44.9 Diaphragmatic hernia without obstruction or gangrene; E87.6 Hypokalemia; E66.01 Morbid (severe) obesity due to excess calories; D50.9 Iron deficiency anemia, unspecified; I11.0 Hypertensive heart disease with heart failure; R06.1 Stridor; Z78.1 Physical restraint status
CPT/HCPCS: 01480; 31500; 36415; 36430; 43239; 51702; 71010; 71020; 71275; 74000; 80048; 80053; 81001; 82271; 82550; 82553; 82607; 82728; 82746; 82803; 83540; 83550; 83735; 83880; 84100; 84466; 84478; 84484; 85025; 85045; 85379; 85610; 85730; 86850; 86900; 86901; 86920; 87040; 87070; 87077; 87205; 88305; 88342; 93005; 93010; 93306; 94002; 94003; 96365; 96375; 99285; C1713; C1751; J0131; J0330; J0696; J1100; J1644; J1650; J1940; J1956; J2060; J2250; J2270; J2405; J2543; J2704; J2765; J3010; J3475; J3480; J3490; J7030; J7050; J7620; P9016; S0164

== ENCOUNTER 2017-06-10 10:47 | Day surgery (SDC) | payer MEDICARE, MEDICAID ==
--- NOTE | 2017-06-07 11:49 | RADIOLOGY REPORT (SQ) ---
EXAM DESCRIPTION: CHEST PA/LATERAL COMPLETED DATE/TIME: 06/07/2017 11:17 am REASON FOR STUDY: PRE OP COMPARISON: 01/01/2017, 12/23/2016 NUMBER OF VIEWS: Two view. TECHNIQUE: Frontal and lateral radiographic views of the chest acquired. LIMITATIONS: None. FINDINGS: LUNGS AND PLEURA: Linear densities both lower lung zones. Somewhat more confluent left base MEDIASTINUM AND HILAR STRUCTURES: No masses or contour abnormalities. HEART AND VASCULATURE: Heart normal size. No evidence for failure. BONY STRUCTURES: No acute findings. HARDWARE: None. OTHER: No other significant finding. IMPRESSION: Bibasilar atelectatic changes. Possible infiltrate left lower lung zone. TECHNICAL DOCUMENTATION: JOB ID: [id number] [employer]- All Rights Reserved
[2017-06-07 11:54] LABS: APPEARANCE,URINE CLEAR; BILIRUBIN,URINE NEGATIVE (NEGATIVE); GLUCOSE, URINE NEGATIVE (NEGATIVE); KETONES,URINE NEGATIVE (NEGATIVE); LEUKOCYTE ESTERASE,URINE SMALL (NEGATIVE); NITRITE,URINE NEGATIVE (NEGATIVE); PROTEIN,URINE NEGATIVE (NEGATIVE); URINE SPECIFIC GRAVITY 1.002; UROBILINOGEN,URINE NEGATIVE mg/dL (<2.0)
[2017-06-07 11:54] LABS: ABSOLUTE EOSINOPHILS # (AUTO) 0.2 10^3/uL (0.0-0.6); ABSOLUTE LYMPHOCYTES (AUTO) 1.9 10^3/uL (0.5-4.7); ABSOLUTE MONOCYTES (AUTO) 0.3 10^3/uL (0.1-1.4); ABSOLUTE NEUT (AUTO) 2.5 10^3/uL (1.7-8.2); BASOPHILS % (AUTO) 0.8 % (0-2); EOSINOPHILS % (AUTO) 4.9 % (0-6); HEMATOCRIT 33.9 % (36.0-47.0); HEMOGLOBIN 10.8 g/dL (12.0-15.5); HGB HCT DIFFERENCE -1.5; LYMPHOCYTES % (AUTO) 38.1 % (13-45); MEAN CORPUSCULAR HEMOGLOBIN 28.7 pg (27.0-33.4); MEAN CORPUSCULAR HGB CONC 31.7 g/dL (32.0-36.0); MEAN CORPUSCULAR VOLUME 91 fl (80-97); RED BLOOD COUNT 3.74 10^6/uL (3.72-5.28); RED CELL DISTRIBUTION WIDTH 12.8 % (11.5-14.0); SEGMENTED NEUTROPHILS % (AUTO) 50.2 % (42-78)
--- NOTE | 2017-06-07 12:19 | EKG REPORT ---
SEVERITY:- ABNORMAL ECG - SINUS RHYTHM BORDERLINE R WAVE PROGRESSION, ANTERIOR LEADS BORDERLINE T ABNORMALITIES, DIFFUSE LEADS BORDERLINE PROLONGED QT INTERVAL : Confirmed by: Kareem Chapa 07-Jun-2017 12:18:53
[2017-06-07 12:23] LABS: BLOOD UREA NITROGEN 8 mg/dL (7-20); CALCIUM 10.2 mg/dL (8.4-10.2); CARBON DIOXIDE 39 mmol/L (22-30); CREATININE RESULT 0.56 mg/dL (0.52-1.25); GLUCOSE 97 mg/dL (75-110); POTASSIUM 3.8 mmol/L (3.6-5.0); SODIUM 142.4 mmol/L (137-145)
[2017-06-07 12:25] LABS: ANION GAP 8 (5-19); CHLORIDE 95 mmol/L (98-107)
[~2017-06-10 10:47] MED LIST changes: +CEFAZOLIN 2 GM/D5W RTU 2 GM/50 ML RTUPB IV PRN; +LACTATED RINGERS 1000 ML IV PRN; +LIDOCAINE 0.5% INJ-PF (5 MG/ML) 50 ML SDV SUBCUT PRN; -SUCCINYLCHOLINE CHLORIDE INJ 200 MG/10 ML VIAL ONE
[2017-06-10] MEDS ORDERED: BUPIVACAINE HCL 0.5 % INJ/PF 30 ML SDV ONE (13:40)
[2017-06-10] MEDS ORDERED: CEFAZOLIN SODIUM 2 GM in DEXTROSE 5%-WATER 100 ML IV ONE (14:15)
--- NOTE | 2017-06-10 15:08 | RADIOLOGY REPORT (SQ) ---
EXAM DESCRIPTION: CHEST SINGLE VIEW COMPLETED DATE/TIME: 06/10/2017 2:59 pm REASON FOR STUDY: PRE OP COMPARISON: 06/07/2017 EXAM PARAMETERS: NUMBER OF VIEWS: One view. TECHNIQUE: Single frontal radiographic view of the chest acquired. RADIATION DOSE: NA LIMITATIONS: None. FINDINGS: LUNGS AND PLEURA: Linear densities are again identified in the lower lung mcmahon most cons istent with atelectatic changes. Visualized lung mcmahon are otherwise clear. No pleural effusions a re identified. MEDIASTINUM AND HILAR STRUCTURES: No masses. Contour normal. HEART AND VASCULAR STRUCTURES: The configuration of the heart and mediastinal structures is unchanged . BONES: No acute findings. HARDWARE: None in the chest. OTHER: No other significant finding. IMPRESSION: No significant interval change. Bilateral linear densities most consistent with atelect atic changes. Other findings as noted above TECHNICAL DOCUMENTATION: JOB ID: [id number]
[2017-06-10] MEDS ORDERED: FENTANYL CITRATE INJ/PF 100 MCG/2 ML AMPUL ONE ×2 (15:45→15:46)
[2017-06-10] MEDS ORDERED: PROPOFOL INJ 200 MG/20 ML VIAL IV ONE (15:46)
[2017-06-10] MEDS ORDERED: MIDAZOLAM 2 MG/2 ML INJ ONE (15:46)
[2017-06-10] MEDS ORDERED: DIAZEPAM 5 MG TABLET ONE (15:49)
[2017-06-10] MEDS ORDERED: DEXMEDETOMIDINE INJ 80 MCG/20 ML VIAL IV ONE (16:25)
[2017-06-10] MEDS ORDERED: DIPHENHYDRAMINE HCL 50 MG/ML VIAL IV PRN (16:28)
[2017-06-10] MEDS ORDERED: FENTANYL CITRATE INJ/PF 100 MCG/2 ML AMPUL IV PRN ×3 (16:28)
[2017-06-10] MEDS ORDERED: OXYCODONE-ACETAMINOPHEN 5-325 MG TABLET PO PRN ×2 (16:28)
[2017-06-10] MEDS ORDERED: PROMETHAZINE HCL INJ 25 MG/1 ML VIAL IV PRN ×2 (16:28)
[2017-06-10] MEDS ORDERED: MORPHINE SULFATE 10 MG/ML INJ IV PRN (16:28)
[2017-06-10] MEDS ORDERED: MEPERIDINE HCL/PF INJ 25 MG/1 ML DISP.SYRIN IV PRN (16:28)
--- NOTE | 2017-06-10 17:05 | Operative Report ---
Operative Report DATE OF SURGERY: 06/10/17 PREOPERATIVE DIAGNOSIS: Retained syndesmotic screws left ankle POSTOPERATIVE DIAGNOSIS: Same OPERATION: REmoval of syndesmotic screws x2 SURGEON: VIRGINIA ALMARAZ ANESTHESIA: LMAC TISSUE REMOVED OR ALTERED: none COMPLICATIONS: None ESTIMATED BLOOD LOSS: 10mL INTRAOPERATIVE FINDINGS: as above PROCEDURE: Patient received 2 g of Ancef in the preop holding area. Patient was brought to the operating room where she was given sedation. The left lower extremity was prepared with a thigh tourniquet and then prepped and draped in a normal sterile surgical fashion. Quarter percent Marcaine with epinephrine was injected in the distal third of the wound right over the syndesmotic region. C- arm pictures were there to confirm placement of the needle and proceeded to infiltrate the subcutaneous tissue only down to the plate. At this point after a few minutes the tourniquet was inflated without dangling the extremity and under C-arm was able to do a 2 inch incision right over the mother screws which entailed the most distal portion of the incision. Sharp dissection was taken down to the plate and the rondure was used to expose and remove the tissue over the screw heads. Screw that was used and under C-arm was able to lock into the screw and remove the syndesmotic screw successfully. Final pictures were taken showing removal of the screws with no retained broken screw. The remaining plate and screws were left behind. Both irrigation was used and then 2-0 Vicryl and 3-0 nylon was used to close the subcu tissue and the actual skin. Xeroform, 4 x 4, ABD pad followed by soft roll was applied and and overwrapped with a 4 inch Dale bandage. Tourniquet was let down after 11 minutes and the patient was undraped and then transferred to PACU in stable condition.
[2017-06-10] MEDS ORDERED: TRAMADOL HCL 50 MG TABLET PO PRN (17:10)
--- NOTE | 2017-06-10 17:10 | PDOC DISCHARGE SUMMARY ---
Discharge Summary (SDC) - Discharge Final Diagnosis: Retained syndesmotic screw left ankle Date of Surgery: 06/10/17 Discharge Date: 06/10/17 Treatment or Instructions: Keep the dressing off for 4 days then okay to remove for shower. No soaking of the wound. Weight-bear as tolerated. Use cane or walker as needed. Follow-up in 10-14 days. Prescriptions: Tramadol HCl 50 mg PO Q6HP PRN #30 tablet PRN Reason: Discharge Diet: As Tolerated Respiratory Treatments at Home: Deep Breathing/Coughing Discharge Activity: Keep Legs Elevated, No Lifting/Push/Pulling, Slowly Increase Activity Home Care Assistance: None Needed Report the Following to Your Physician Immediately: Shortness of Breath, Vomiting, Increase in Pain, Unusual Bleeding, Redness, Swelling, Warmth, Drainage-Yellow, Drainage-Ruiz, Drainage-Green, Drainage-Foul Smelling
--- NOTE | 2017-06-10 17:11 | RADIOLOGY REPORT (SQ) ---
EXAM DESCRIPTION: ANKLE LEFT AP/LATERAL COMPLETED DATE/TIME: 06/10/2017 4:57 pm REASON FOR STUDY: LT ANKLE HARDWARE REMOVAL M79.605 PAIN IN LEFT LEG Z79.899 OTHER NURSING HOME ([facility]) DRUG THERAPY COMPARISON: None. FLUOROSCOPY TIME: 0.1 seconds 1 images saved to PACS. TECHNIQUE: Intra-operative images acquired during surgical procedure to evaluate progress. NUMBER OF IMAGES: 1 LIMITATIONS: None. FINDINGS: Fluoroscopic images were obtained during hardware removal. IMPRESSION: IMAGE(S) OBTAINED DURING PROCEDURE. COMMENT: Quality ID 145: Final reports for procedures using fluoroscopy that document radiation exp osure indices, or exposure time and number of fluorographic images (if radiation exposure indices are not available) Please consult full operative report of the attending physician for description of the procedure. TECHNICAL DOCUMENTATION: JOB ID: [id number] [employer]- All Rights Reserved
--- NOTE | 2017-06-10 17:11 | RADIOLOGY REPORT (SQ) ---
EXAM DESCRIPTION: NO CHG FLUORO COMPLETE DATE/TIME: 06/10/2017 4:57 pm REASON FOR STUDY: LT ANKLE HARDWARE REMOVAL M79.605 PAIN IN LEFT LEG Z79.899 OTHER [employer]ING [employer] ([facility]) DRUG THERAPY FINDINGS: Please see combined report for performance of procedure and radiologic supervision and int erpretation. IMPRESSION: Please see combined report for performance of procedure and radiologic supervision and i nterpretation.
[2017-06-10 18:41] VITALS: BP 156/88
--- NOTE | 2017-06-11 06:03 | EKG REPORT ---
SEVERITY:- BORDERLINE ECG - SINUS RHYTHM BORDERLINE T ABNORMALITIES, INFERIOR LEADS : Confirmed by: Daria Johansen MD 11-Jun-2017 06:02:43
== END 2017-06-10 18:30 | disposition home or self-care (01) ==
LOC: OROUT 10:47
PROVIDERS: ATTEND Orthopaedic Surgery
PROC: 0SPG04Z Removal of Internal Fixation Device from Left Ankle Joint, Open Approach (ICD-10-PCS; principal; 2017-06-10 13:45)
DX: Z47.2 Encounter for removal of internal fixation device (principal); T84.398D Other mechanical complication of other bone devices, implants and grafts, subsequent encounter; X58.XXXD Exposure to other specified factors, subsequent encounter; M06.9 Rheumatoid arthritis, unspecified; E66.9 Obesity, unspecified; M79.605 Pain in left leg; E11.9 Type 2 diabetes mellitus without complications; Z79.82 Long term (current) use of aspirin; Z79.899 Other long term (current) drug therapy; Z68.41 Body mass index [BMI] 40.0-44.9, adult
CPT/HCPCS: 93005 ×2; 36415; 82962; 85025; 80048; 81001; 83036; 73600; 71020; 71010; 93010 ×2; 20680; J2250; J0690; A9270; J3010; J2704; J3490; 01480

== ENCOUNTER → 2017-11-12 | Outpatient (CLI) | payer MEDICARE, MEDICAID ==
--- NOTE | 2017-11-12 12:19 | RADIOLOGY REPORT (SQ) ---
EXAM DESCRIPTION: CT HEAD WITHOUT COMPLETED DATE/TIME: 11/12/2017 12:03 pm REASON FOR STUDY: SEIZURES, GAIT APRAXIA R26.89 OTHER ABNORMALITIES OF GAIT AND MOBILITY R56.9 UNS PECIFIED CONVULSIONS COMPARISON: None. TECHNIQUE: Axial images acquired through the brain without intravenous contrast. Images reviewed wi th bone, brain and subdural windows. Images stored on PACS. All CT scanners at this facility use dose modulation, iterative reconstruction, and/or weight based d osing when appropriate to reduce radiation dose to as low as reasonably achievable (ALARA). [facility]: Dose Right [facility]: CareDose [facility]: Dose Right [facility]: Teradose 4D [facility]: Smart [employer] RADIATION DOSE: CT Rad equipment meets quality standard of care and radiation dose reduction techniq ues were employed. CTDIvol: 21.5 - 49.0 mGy. DLP: 2424 mGy-cm. mGy. LIMITATIONS: Patient motion artifact, patient scanned 3 times FINDINGS: Motion artifact on today's study. On the images without motion artifact, there is no gross acute intracranial hemorrhage, mass effect, or midline shift. No hydrocephalus. Paranasal sinuses, calvarium unremarkable. IMPRESSION: Limited negative study. EVIDENCE OF ACUTE STROKE: NO. COMMENT: Quality ID # 436: Final reports with documentation of one or more dose reduction techniques (e.g., Automated exposure control, adjustment of the mA and/or kV according to patient size, use of iterative reconstruction technique) TECHNICAL DOCUMENTATION: JOB ID: [id number] [employer]- All Rights Reserved
== END ==
LOC: RAD 08:42
PROVIDERS: ATTEND Specialist
DX: R26.89 Other abnormalities of gait and mobility (principal); R56.9 Unspecified convulsions
CPT/HCPCS: 70450

== ENCOUNTER → 2018-01-26 | Outpatient (CLI) | payer MEDICARE, MEDICAID ==
--- NOTE | 2018-01-26 14:31 | RADIOLOGY REPORT (SQ) ---
EXAM DESCRIPTION: CT CHEST WITHOUT COMPLETED DATE/TIME: 01/26/2018 1:02 pm REASON FOR STUDY: R06.00 DYSPNEA, UNSPECIFIED R06.00 DYSPNEA, UNSPECIFIED COMPARISON: 12/22/2016. TECHNIQUE: CT scan performed of the chest without intravenous contrast. Images reviewed with lung, soft tissue and bone windows. Reconstructed coronal and sagittal MPR images reviewed. All images st ored on PACS. All CT scanners at this facility use dose modulation, iterative reconstruction, and/or weight based d osing when appropriate to reduce radiation dose to as low as reasonably achievable (ALARA). [facility]: Dose Right [facility]: CareDose [facility]: Dose Right [facility]: Teradose 4D [facility]: Should[employer] RADIATION DOSE: CT Rad equipment meets quality standard of care and radiation dose reduction techniq ues were employed. CTDIvol: 19.4 mGy. DLP: 714 mGy-cm. mGy. LIMITATIONS: Due to the patient's underlying mental condition, the patient refused to be scanned in the supine position and was placed in the left lateral decubitus position instead. FINDINGS: LUNGS AND PLEURA: Again seen are extensive bandlike areas of scarring throughout both lung s. Probable bronchiectasis in the lower lobes. No pleural effusion or pneumothorax. HILAR AND MEDIASTINAL STRUCTURES: No identified masses or abnormal nodes. No obvious aneurysm. HEART AND VASCULAR STRUCTURES: No aneurysm. No pericardial effusion. UPPER ABDOMEN: No significant findings. Limited exam. THYROID AND OTHER SOFT TISSUES: No masses. No adenopathy. BONES: No significant finding. HARDWARE: None in the chest. OTHER: No other significant findings. IMPRESSION: LIMITED STUDY. EXTENSIVE CHRONIC SCARRING THROUGHOUT BOTH LUNGS, SIMILAR APPEARANCE TO THE PRIOR STUDY. PROBABLE BRONCHIECTASIS IN THE LOWER LOBES. TECHNICAL DOCUMENTATION: JOB ID: [id number] Quality ID # 436: Final reports with documentation of one or more dose reduction techniques (e.g., Au tomated exposure control, adjustment of the mA and/or kV according to patient size, use of iterative reconstruction technique) 2010 [employer]- All Rights Reserved Reading location - IP/workstation name: [email or web address]
== END ==
LOC: RAD 13:54
PROVIDERS: ATTEND Physician Assistant
DX: R06.00 Dyspnea, unspecified (principal)
CPT/HCPCS: 71250

== ENCOUNTER → 2018-01-27 | Outpatient (CLI) | payer MEDICARE, MEDICAID ==
--- NOTE | 2018-01-27 09:15 | RADIOLOGY REPORT (SQ) ---
EXAM DESCRIPTION: COOKIE SWALLOW COMPLETED DATE/TIME: 01/27/2018 8:57 am REASON FOR STUDY: DYSPHAGIA R13.10 DYSPHAGIA, UNSPECIFIED food in pharynx causing other injury, seq uela T1 7.228 S COMPARISON: None. TECHNIQUE: Videofluoroscopic swallowing examination was performed in conjunction with speech patholo gy. Videofluoroscopic imaging was obtained and reviewed and these are the findings: RADIATION DOSE: Total fluoroscopy time: 1 minutes 6 seconds 1 fluoroscopy image saved to PACS. LIMITATIONS: None FINDINGS: The patient was brought into the fluoro room and placed upright on a modified barium swall ow chair. The patient was then given multiple consistencies mixed with barium to swallow under live fluoroscopic video guidance. According to the Speech Pathologist there was no laryngeal penetration and no tracheal aspiration. Normal oral and pharyngeal transit time was observed. No significant po st swallow residual seen. Please see speech pathology report further details and recommendations. IMPRESSION: NO EVIDENCE OF LARYNGEAL PENETRATION OR TRACHEAL ASPIRATION.PLEASE SEE SPEECH PATHOLOGIS T REPORT FOR OTHER FINDINGS AND RECOMMENDATIONS. COMMENT: Quality ID 145: Final reports for procedures using fluoroscopy that document radiation exp osure indices, or exposure time and number of fluorographic images (if radiation exposure indices are not available) TECHNICAL DOCUMENTATION: JOB ID: [id number] [employer]- All Rights Reserved Reading location - IP/workstation name: [email or web address]
--- NOTE | 2018-01-27 11:10 | ST Modified Barium Swallow ---
Recommendation - Recommendations Recommendations: Recommend thin liquids and soft solids due to dentition. Functional, safe swallow skills seen. 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 The patient has difficulty answering medical questions, has home oxygen on. Mother reports that she occasionally hears the patient "sound different" after eating or drinking. No significant overt coughing. The patient did have pneumonia approximately 1 year ago co-occuring with other medical issues. Mother reports that at one time, the patient was on thickened liquids and pureed foods due to concern for aspiration, but is no longer on this diet. Mother reports thin liquids and soft solids due to limited dentition. Medications: Patient's mother brought the following list: naproxen, klorcon, atoruastatin, amlodipine, abel aspirine, levothyroxine, docusate, potassium, lisinapril, vitamin D Allergies: none reported - Functional Status Prior Functional Status: INDEPENDENT: feeding - independent - Subjective Patient/caregiver goal(s): r/o aspiration, other - establish safe diet Speech Intelligibility: Reduced intelligibility Current Nutritional Means: PO Current PO diet: Soft, Regular - thin liquids Current symptoms: Hx of asp. pneumonia Pain: Patient reports, 0/5 - Objective Assessment: Upright, Left Lateral - Food Trials Used Food trials used: Thin liquids, Pureed, Regular The patient: Required Assist - Oral-Motor Skills Dentition: Edentulous - Assessment Oral prep: Mildly Impaired Labial closure: Adequate Leakage: None Mastication: Adequate Oral stage: Normal for this Procedure Oral Stage: Oral stage limited by lack of dentition. - Pharyngeal Stage Initiation of Pharyngeal Stage Reflex: Normal Decreased laryngeal elevation: No Reduced Velopharyngeal Closure: no Reduced pressure generation: No reduced tongue-based retraction: No Pre-swallow pooling in valleculae: Moderate - on first trial, decreased after this Pre-Swallow pooling in pyriforms: None Reduced Thyro-Hyoid approximation: No Reduced epiglottic excursion: No Reduced pharyngeal peristalsis/contraction: No Post-swallow residulas vallecular: None Post-Swallow residuals in pyriforms: None - Fall Risk Assessment Medications/Conditions that increase fall risks include: Antidepressants, sedatives, anti-arrhythmic, diuretic, benzodiazipenes, neuroleptics. BP regulation problems, cardiac problems, balance or gait deficits, neurological problems. Fall Risk Actions Taken: No action needed - Behavioral Observations During evaluation process patient: was pleasant, was cooperative - Treatment / Educational Needs: Treatment/Education Needs: Treatment consisted of patient education on the role of the Speech Pathologist. Patient's plan of care and golas were communicated as well as scheduling and attendance policies. Recommendations for initial home program were shared. Patient demonstrated understanding and verbalized agreement. - Impression/Summary Laryngeal Penetration: No Tracheal Aspiration: no Patient presents with: Normal swallow at eval Risk of Aspiration: Minimal Evaluation and Findings: Patient presents with functional swallow skills for regular diet, soft solids recommended due to limited dentition. No aspiration or penetration seen. - Recommendations Solid diet recommendations: Mechanical Soft Liquid Diet Modification: Thin Pt/Family education and followup with MD: Yes Dysphagia therapy with SONOGRAPHY TECHNOLOGIST: no Recommended techniques: Fully Upright During Meal, Alternate Bites/Sips Supervision: requires assistance Information, Precautions and Recommendations: Patient (Verbal), Family Member ( Written), Family Member (Verbal) - Time Total Time: 20 - Plan of Care Patient to follow-up with referring physician: Yes Strategies to optimize patient understanding include:: ongoing assessment of educational needs, implementation of educational strategies, and re-education. - - -: Thank you for the opportunity to work with this patient and his/her family. Should you have any questions about this patient's plan or progress, I can be reached at [phone]. Charge G Code? - - -: Yes ST F.L. Impairment Category - Rationale Based On Rationale Based On: Func. Asses. Tool Results - Swallowing Current G8996: CI 1-19% Impaired Goal G8997: CI 1-19% Impaired Discharge G8998: CI 1-19% Impaired
== END ==
LOC: RAD 08:04
PROVIDERS: ATTEND Physician Assistant
DX: R13.10 Dysphagia, unspecified (principal)
CPT/HCPCS: 74230; 92611; G8996; G8997; G8998

== ENCOUNTER 2018-04-05 14:11 | Inpatient (IN) | payer MEDICARE, MEDICAID ==
[2018-04-05 14:23] VITALS: BP 119/90
--- NOTE | 2018-04-05 14:55 | ER Document Report ---
ED Medical Screen (RME) - General Chief Complaint: Breathing Difficulty Stated Complaint: DIFFICULTY BREATHING Time Seen by Provider: 04/05/18 14:46 Notes: RAPID MEDICAL EVALUATION DISCLOSURE I have seen this patient as part of a Rapid Medical Evaluation and, if applicable, placed any initially appropriate orders. The patient will be seen and fully evaluated, including a full history and physical exam, by a provider ( in Main ED or Fast Track) when a room becomes available. 57-year-old female PMH learning disability CHF respiratory failure with mother who states that over the past 5 days, she has noticed the patient's oxygen dropping down to the low 80s with ambulation. The patient normally wears 2 L oxygen via nasal cannula and, with ambulation, her oxygen saturation normally is around 94-95%. Over the past 5 days, the drop in oxygen saturation is abnormal and mother states she has also been complaining of some chest pain/ discomfort and abdominal pain however the patient objects to this and says otherwise. The patient was sent over from Dr. Johnson's office for further evaluation of this hypoxia. I am unable to obtain an accurate history/ROS from this patient due to her DD/MR. EXAM CTAB Mildly tachycardic TRAVEL OUTSIDE OF THE [place] IN LAST 30 DAYS: No - Related Data Allergies/Adverse Reactions: No Known Allergies Allergy (Verified 04/05/18 14:11) Past Medical History - Past Medical History Cardiac Medical History: Reports: Hx Hypertension Denies: Hx Coronary Artery Disease, Hx Heart Attack Pulmonary Medical History: Denies: Hx Asthma, Hx Bronchitis, Hx COPD, Hx Pneumonia Neurological Medical History: Denies: Hx Cerebrovascular Accident, Hx Seizures Endocrine Medical History: Reports: Hx Hypothyroidism Musculoskeltal Medical History: Denies Hx Arthritis Psychiatric Medical History: Reports: Hx Anxiety Denies: Hx Depression Past Surgical History: Reports: Hx Orthopedic Surgery - left jae fracture, requiring open reduction and fixation. Denies: Hx Hysterectomy - Immunizations Hx Diphtheria, Pertussis, Tetanus Vaccination: No Physical Exam - Vital signs Vitals: Temp Pulse Resp BP Pulse Ox 98.2 F 108 H 19 119/90 H 94 04/05/18 14:21 04/05/18 14:21 04/05/18 14:21 04/05/18 14:21 04/05/18 14:21 Course - Vital Signs Vital signs: Temp Pulse Resp BP Pulse Ox 98.2 F 108 H 19 119/90 H 94 04/05/18 14:21 04/05/18 14:21 04/05/18 14:21 04/05/18 14:21 04/05/18 14:21
[2018-04-05 15:42] LABS: ABSOLUTE EOSINOPHILS # (AUTO) 0.2 10^3/uL (0.0-0.6); ABSOLUTE LYMPHOCYTES (AUTO) 1.9 10^3/uL (0.5-4.7); ABSOLUTE MONOCYTES (AUTO) 0.5 10^3/uL (0.1-1.4); ABSOLUTE NEUT (AUTO) 4.4 10^3/uL (1.7-8.2); BASOPHILS % (AUTO) 0.7 % (0-2); EOSINOPHILS % (AUTO) 3.5 % (0-6); HEMATOCRIT 32.9 % (36.0-47.0); HEMOGLOBIN 10.2 g/dL (12.0-15.5); LYMPHOCYTES % (AUTO) 26.4 % (13-45); MEAN CORPUSCULAR HEMOGLOBIN 29.2 pg (27.0-33.4); MEAN CORPUSCULAR VOLUME 94 fl (80-97); MONOCYTES % (AUTO) 6.5 % (3-13); PLATELET COUNT 345 10^3/uL (150-450); RED BLOOD COUNT 3.49 10^6/uL (3.72-5.28); RED CELL DISTRIBUTION WIDTH 12.4 % (11.5-14.0); SEGMENTED NEUTROPHILS % (AUTO) 62.9 % (42-78); TOTAL CELLS COUNTED % (AUTO) 100 %
[2018-04-05 16:00] LABS: ALANINE AMINOTRANSFERASE 27 U/L (9-52); ALKALINE PHOSPHATASE 75 U/L (38-126); ASPARTATE AMINO TRANSFERASE 22 U/L (14-36); BILIRUBIN,DIRECT 0.2 mg/dL (0.0-0.4); BILIRUBIN,TOTAL 0.2 mg/dL (0.2-1.3); BLOOD UREA NITROGEN 12 mg/dL (7-20); CALCIUM 9.8 mg/dL (8.4-10.2); CHLORIDE 87 mmol/L (98-107); GLUCOSE 94 mg/dL (75-110); LIPASE 88.5 U/L (23-300); POTASSIUM 3.9 mmol/L (3.6-5.0); SODIUM 146.2 mmol/L (137-145); TOTAL PROTEIN 7.3 g/dL (6.3-8.2)
[2018-04-05 16:12] LABS: ANION GAP 10 (5-19)
--- NOTE | 2018-04-05 16:14 | RADIOLOGY REPORT (SQ) ---
EXAM DESCRIPTION: CHEST 2 VIEWS COMPLETED DATE/TIME: 04/05/2018 4:00 pm REASON FOR STUDY: SOB hypoxia CP COMPARISON: 12/24/2016 EXAM PARAMETERS: NUMBER OF VIEWS: two views TECHNIQUE: Digital Frontal and Lateral radiographic views of the chest acquired. RADIATION DOSE: NA LIMITATIONS: none FINDINGS: LUNGS AND PLEURA: Low lung volumes. Rather extensive bibasilar markings. Partially confl uent marking left lower lung zone. Differential includes bibasilar atelectasis or infiltrate and re presents significant change since the previous chest x-ray. MEDIASTINUM AND HILAR STRUCTURES: No masses or contour abnormalities. HEART AND VASCULAR STRUCTURES: Heart normal size. No evidence for failure. BONES: No acute findings. HARDWARE: None in the chest. OTHER: No other significant finding. IMPRESSION: Rather extensive bibasilar atelectasis or infiltrate with significant increase since the previous chest x-ray of 12/24/2016. TECHNICAL DOCUMENTATION: JOB ID: [id number] [email or web address]- All Rights Reserved Reading location - IP/workstation name: [email or web address]
[2018-04-05 16:15] LABS: CARBON DIOXIDE 49 mmol/L (22-30); NT PRO BNP < 11 pg/mL (5-900); TROPONIN I < 0.012 ng/mL
--- NOTE | 2018-04-05 16:23 | ER Document Report ---
ED General - General Chief Complaint: Breathing Difficulty Stated Complaint: DIFFICULTY BREATHING Time Seen by Provider: 04/05/18 14:46 Mode of Arrival: Ambulatory Information source: Patient, Dr. Office - Dr. Mendoza's office Notes: 57-year-old female history of brain injury was on oxygen at home noted to be hypoxic intermittently presents from primary care office with concerns for hypoxemia mother notes when she ambulates her oxygen level goes down. TRAVEL OUTSIDE OF THE [place] IN LAST 30 DAYS: No - HPI Onset: Last week Onset/Duration: Persistent Quality of pain: No pain Severity: Mild Pain Level: Denies Associated symptoms: Nonproductive cough, Shortness of breath Exacerbated by: Walking Relieved by: Denies Similar symptoms previously: Yes Recently seen / treated by doctor: Yes - Related Data Allergies/Adverse Reactions: No Known Allergies Allergy (Verified 04/05/18 14:11) Past Medical History - Social History Smoking Status: Never Smoker Cigarette use (# per day): No Chew tobacco use (# tins/day): No Smoking Education Provided: No Frequency of alcohol use: None Drug Abuse: None Family History: Reviewed & Not Pertinent Patient has suicidal ideation: No Patient has homicidal ideation: No - Past Medical History Cardiac Medical History: Reports: Hx Hypertension Denies: Hx Coronary Artery Disease, Hx Heart Attack Pulmonary Medical History: Denies: Hx Asthma, Hx Bronchitis, Hx COPD, Hx Pneumonia Neurological Medical History: Denies: Hx Cerebrovascular Accident, Hx Seizures Endocrine Medical History: Reports: Hx Hypothyroidism Renal/ Medical History: Denies: Hx Peritoneal Dialysis Musculoskeltal Medical History: Denies Hx Arthritis Psychiatric Medical History: Reports: Hx Anxiety Denies: Hx Depression Past Surgical History: Reports: Hx Orthopedic Surgery - left jae fracture, requiring open reduction and fixation. Denies: Hx Hysterectomy - Immunizations Hx Diphtheria, Pertussis, Tetanus Vaccination: No Review of Systems - Review of Systems Notes: REVIEW OF SYSTEMS: CONSTITUTIONAL : Denies fever, chills, or sweats. Denies recent illness. EENT: Denies eye, ear, throat, or mouth pain or symptoms. Denies nasal or sinus congestion or discharge. Denies throat, tongue, or mouth swelling or difficulty swallowing. CARDIOVASCULAR: Denies chest pain. Denies palpitations or racing or irregular heart beat. Denies ankle edema. RESPIRATORY: Admits to shortness of breath GASTROINTESTINAL: Denies abdominal pain or distention. Denies nausea, vomiting , or diarrhea. Denies blood in vomitus, stools, or per rectum. Denies black, tarry stools. Denies constipation. GENITOURINARY: Denies difficulty urinating, painful urination, burning, frequency, blood in urine, or discharge. FEMALE GENITOURINARY: Denies vaginal bleeding, heavy or abnormal periods, irregular periods. Denies vaginal discharge or odor. MUSCULOSKELETAL: Denies back or neck pain or stiffness. Denies joint pain or swelling. SKIN: Denies rash, lesions or sores. HEMATOLOGIC : Denies easy bruising or bleeding. LYMPHATIC: Denies swollen, enlarged glands. NEUROLOGICAL: Denies confusion or altered mental status. Denies passing out or loss of consciousness. Denies dizziness or lightheadedness. Denies headache. Denies weakness or paralysis or loss of use of either side. Denies problems with gait or speech. Denies sensory loss, numbness, or tingling. Denies seizures. PSYCHIATRIC: Denies anxiety or stress. Denies depression, suicidal ideation, or homicidal ideation. ALL OTHER SYSTEMS REVIEWED AND NEGATIVE. PHYSICAL EXAMINATION: GENERAL: Well-appearing, well-nourished and in no acute distress. HEAD: Atraumatic, normocephalic. EYES: Pupils equal round and reactive to light, extraocular movements intact, conjunctiva are normal. ENT: Nares patent, oropharynx clear without exudates. Moist mucous membranes. NECK: Normal range of motion, supple without lymphadenopathy LUNGS: Faint inspiratory expiratory wheezing HEART: Regular rate and rhythm without murmurs ABDOMEN: Soft, nontender, nondistended abdomen. No guarding, no rebound. No masses appreciated. Female : deferred Musculoskeletal: Normal range of motion, no pitting or edema. No cyanosis. NEUROLOGICAL: Baseline mentation PSYCH: Normal mood, normal affect. SKIN: Warm, Dry, normal turgor, no rashes or lesions noted. Dictation was performed using [employer] voice recognition software Physical Exam - Vital signs Vitals: Temp Pulse Resp BP Pulse Ox 98.2 F 108 H 19 119/90 H 94 04/05/18 14:21 04/05/18 14:21 04/05/18 14:21 04/05/18 14:21 04/05/18 14:21 Course - Re-evaluation Re-evalutation: 04/05/18 17:08 Patient's CO2 was noted to be significantly elevated, BiPAP is ordered, I did speak with Dr. Mendoza and will admit to his service - Vital Signs Vital signs: Temp Pulse Resp BP Pulse Ox 98.2 F 108 H 14 119/90 H 96 04/05/18 14:21 04/05/18 14:21 04/05/18 16:28 04/05/18 14:21 04/05/18 16:28 - Laboratory Result Diagrams: 04/05/18 15:32 04/05/18 15:32 Laboratory results interpreted by me: 04/05/18 04/05/18 04/05/18 15:32 15:32 16:18 RBC 3.49 L Hgb 10.2 L Hct 32.9 L MCHC 31.0 L VBG pH 7.28 L VBG pCO2 130.0 H* VBG HCO3 59.3 H Sodium 146.2 H Chloride 87 L Carbon Dioxide 49 H* Creatinine 0.48 L - Diagnostic Test Radiology reviewed: Image reviewed - Chest x-ray notes significant atelectasis, Reports reviewed Critical Care Note - Critical Care Note Total time excluding time spent on procedures (mins): 44 Comments: 44 minutes of critical care time spent in direct contact evaluating and reevaluating the patient, treating symptoms, reviewing labs and studies and speaking with family and consultants excluding any procedures Discharge - Discharge Clinical Impression: History of traumatic brain injury Acute respiratory failure Qualifiers: Respiratory failure complication: hypercapnia Qualified Code(s): J96.02 - Acute respiratory failure with hypercapnia Condition: Stable Disposition: ADMITTED INPATIENT Admitting Provider: Kelly [facility] Admitted: [facility]
[2018-04-05 16:30] LABS: VENOUS BLOOD BASE EXCESS 26.7 mmol/L; VENOUS BLOOD HCO3 59.3 mmol/L (20-32); VENOUS BLOOD PH 7.28 (7.30-7.42)
[2018-04-05] MEDS ORDERED: LORAZEPAM INJ 2 MG/1 ML VIAL IV ONE (16:45)
--- NOTE | 2018-04-05 17:49 | RADIOLOGY REPORT (SQ) ---
EXAM DESCRIPTION: CTA CHEST COMPLETED DATE/TIME: 04/05/2018 5:33 pm REASON FOR STUDY: hypoxemia COMPARISON: Chest x-ray dated 04/05/2018 TECHNIQUE: CT scan of the chest performed using helical scanning technique with dynamic intravenous contrast injection. Images reviewed with lung, soft tissue and bone windows. Reconstructed coronal and sagittal MPR images reviewed. Additional 3 dimensional post-processing performed to develop Maximal Intensity Projection images (NE P). All images stored on PACS. All CT scanners at this facility use dose modulation, iterative reconstruction, and/or weight based d osing when appropriate to reduce radiation dose to as low as reasonably achievable (ALARA). [facility]: Dose Right [facility]: CareDose [facility]: Dose Right [facility]: Teradose 4D [facility]: [employer] CONTRAST TYPE AND DOSE: 80 mL Isovue 370 Contrast bolus optimized for the pulmonary arteries. Not diagnostic for the aorta. RENAL FUNCTION: Creatinine 0.48 RADIATION DOSE: . LIMITATIONS: None. FINDINGS: LUNGS AND PLEURA: Fairly diffuse bilateral patchy airspace densities are identified most c onsistent with patchy pneumonic infiltrates. No pleural effusions are identified. No pneumothorax i s seen. AORTA AND GREAT VESSELS: No aneurysm. Contrast bolus not optimized for the aorta. HEART: No pericardial effusion. No significant coronary artery calcifications. PULMONARY ARTERIES: No emboli visualized in the main pulmonary arteries or the segmental branches. HILAR AND MEDIASTINAL STRUCTURES: No identified masses or abnormal nodes. HARDWARE: None in the chest. UPPER ABDOMEN: No significant findings. Limited exam. THYROID AND OTHER SOFT TISSUES: No masses. No adenopathy. BONES: No acute or significant finding. 3D MIPS: Confirm above findings. OTHER: No other significant finding. IMPRESSION: No evidence for pulmonary embolic disease. Fairly diffuse bilateral patchy airspace den sities are identified most consistent with patchy pneumonic infiltrates. No pleural effusions are id entified. Other findings as noted above COMMENT: Quality ID # 436: Final reports with documentation of one or more dose reduction techniques (e.g., Automated exposure control, adjustment of the mA and/or kV according to patient size, use of iterative reconstruction technique) TECHNICAL DOCUMENTATION: JOB ID: [id number] [employer]- All Rights Reserved Reading location - IP/workstation name: [email or web address]
--- NOTE | 2018-04-05 20:34 | PDOC H&P ---
History of Present Illness Admission Date/PCP: 04/05/18 16:32 TRESA NAVARRO MD History of Present Illness: ZOFIA COLES is a 57 year old female.She is mentally challenged from , she came to the office today with her mother, the primary caregiver, she was noted to have low oxygen saturation with increased heart rate, she was referred to emergency room for further evaluation in the ER she was evaluated CTA chest was done he showed fairly diffuse bilateral patchy airspace densities most consistent with patchy pneumonic infiltrate, the venous blood gas showed hypercapnia, she was on BiPAP, while on the floor she had a cardiac arrest, she was resuscitated in ICU, eventually she has . I had a long discussion with mother and family members. Past Medical History Cardiac Medical History: Reports: Hypertension Endocrine Medical History: Reports: Hypothyroidism Past Surgical History Past Surgical History: Reports: Orthopedic Surgery - left jae fracture, requiring open reduction and fixation Social History Smoking Status: Never Smoker Frequency of Alcohol Use: None Hx Recreational Drug Use: No Drugs: None Hx Prescription Drug Abuse: No Family History Family History: Reviewed & Not Pertinent Parental Family History Reviewed: Yes Children Family History Reviewed: Yes Sibling(s) Family History Reviewed.: Yes Medication/Allergy Home Medications: Amlodipine Besylate [Norvasc 5 mg Tablet] 5 mg PO DAILY 04/05/18 Atorvastatin Calcium [Lipitor 10 mg Tablet] 10 mg PO QHS 04/05/18 Clotrimazole/Betamethasone Dip [Clotrimazole-Betamethasone Crm] 1 applic TP BID 04/05/18 Levothyroxine Sodium [Synthroid 0.025 mg Tablet] 0.025 mg PO DAILY 04/05/18 Lisinopril [Prinivil 5 mg Tablet] 5 mg PO DAILY 04/05/18 Melatonin [Melatonin 5 mg Tablet] 5 mg PO QHS 04/05/18 Omeprazole 40 mg PO DAILY 04/05/18 Potassium Chloride [Klor-Con 10] 10 meq PO BID 04/05/18 Talc/Cellulos/Chloroxy/Aldioxa [Zeasorb Powder] 1 applic TP DAILY 04/05/18 Tramadol HCl [Ultram 50 mg Tablet] 50 mg PO Q6HP PRN 04/05/18 Allergies/Adverse Reactions: No Known Allergies Allergy (Verified 04/05/18 14:11) Review of Systems ROS unobtainable: Other - She was restless Physical Exam Vital Signs: Temp Pulse Resp BP Pulse Ox 98.2 F 108 H 16 119/90 H 95 04/05/18 14:21 04/05/18 14:21 04/05/18 17:10 04/05/18 14:21 04/05/18 17:10 General appearance: PRESENT: no acute distress Eye exam: PRESENT: PERRLA Respiratory exam: PRESENT: rhonchi Cardiovascular exam: PRESENT: +S1, +S2 GI/Abdominal exam: PRESENT: soft Neurological exam: PRESENT: alert Results Impressions: Chest X-Ray 04/05/18 14:52 IMPRESSION: Rather extensive bibasilar atelectasis or infiltrate with significant increase since the previous chest x-ray of 12/24/2016. Chest/Abdomen CTA 04/05/18 16:21 IMPRESSION: No evidence for pulmonary embolic disease. Fairly diffuse bilateral patchy airspace densities are identified most consistent with patchy pneumonic infiltrates. No pleural effusions are identified. Other findings as noted above Assessment & Plan - Diagnosis (1) Acute hypoxemic respiratory failure Is this a current diagnosis for this admission?: Yes (2) Bilateral pneumonia Qualifiers: Pneumonia type: due to unspecified organism Lung location: unspecified part of lung Qualified Code(s): J18.9 - Pneumonia, unspecified organism Is this a current diagnosis for this admission?: Yes
--- NOTE | 2018-04-05 20:40 | Death Summary ---
Summary Date : 04/05/18 Autopsy: No Resuscitation Status: Full Code - Final Diagnosis (1) Acute hypoxemic respiratory failure Is this a current diagnosis for this admission?: Yes (2) Bilateral pneumonia Is this a current diagnosis for this admission?: Yes Hospital Course:: Patient was admitted today for the management of acute hypoxemic and hypercapnic respiratory failure associated with diffuse bilateral pneumonia, she developed cardiac arrest, ACLS protocol was initiated, she was resuscitated but she today
[2018-04-05] MEDS ORDERED: ATROPINE SULFATE INJ 1 MG/10 ML DISP.SYRIN IV ONE (21:15)
[2018-04-05] MEDS ORDERED: SODIUM BICARBONATE 8.4% INJ 50 MEQ/50 ML DISP.SYRIN ONE (21:15)
[2018-04-05] MEDS ORDERED: EPINEPHRINE INJ 1 MG/10 ML DISP.SYRIN ONE (21:15)
--- NOTE | 2018-04-06 16:33 | Progress Note ---
Provider Note Provider Note: Hospitalist note Responded to JEROMY GUTIERREZ called at [phone] Patient admitted from the ED ; in cardiopulmonary arrest on arrival in the medical unit CPR in progress Patient is ventilated with Ambu bag and 100% O2 and cardiac compressions provided Initial rhythm asystole CPR continued ; Dr De Leon present ordering meds intubated patient at second attempt using ET tube is #7 Good breath sounds bilaterally heard after intubation CO2 detector positive ACLS protocol was followed Patient was initially given Romazicon to counteract Ativan, and several doses of epinephrine 3 minutes apart as well as sodium bicarb were administered Patient had a palpable pulse and was in normal sinus rhythm when she was moved to the intensive care unit Shortly before arrival in ICU pulse was lost and CPR was resumed Patient at 18:09
== END 2018-04-05 20:55 | disposition left against medical advice (07) | DRG 189 ==
LOC: ER 14:11 → EH 16:32 → ICU 17:55
PROVIDERS: ADMIT Internal Medicine; ATTEND Internal Medicine
PROC: 0BH17EZ Insertion of Endotracheal Airway into Trachea, Via Natural or Artificial Opening (ICD-10-PCS; principal; 2018-04-05)
PROC: 5A12012 Performance of Cardiac Output, Single, Manual (ICD-10-PCS; 2018-04-05)
PROC: 5A09357 Assistance with Respiratory Ventilation, Less than 24 Consecutive Hours, Continuous Positive Airway Pressure (ICD-10-PCS; 2018-04-05)
DX: J96.01 Acute respiratory failure with hypoxia (principal); J18.9 Pneumonia, unspecified organism; J96.02 Acute respiratory failure with hypercapnia; I10 Essential (primary) hypertension; E03.9 Hypothyroidism, unspecified; F79 Unspecified intellectual disabilities; Z87.81 Personal history of (healed) traumatic fracture; Z87.820 Personal history of traumatic brain injury; Z53.29 Procedure and treatment not carried out because of patient's decision for other reasons; Z79.899 Other long term (current) drug therapy
CPT/HCPCS: 36415; 71046; 71275; 80053; 82803; 83690; 83880; 84484; 85025; 87040; 87077; 87186; 92950; 96374; 99291; J0171; J0461; J2060; J3490